=== PATIENT | female | born 1985 | race Caucasian/White ===

== ENCOUNTER 2017-02-11 20:46 | Inpatient (IN) | payer OTHER ==
[~2017-02-11] VITALS: Ht 152.4 cm; Wt 74.1 kg
[~2017-02-11 20:46] MED LIST: LEVO50TA PO; PRENTAB26 PO
[2017-02-11] MEDS ORDERED: LEVO75TA5 PO (22:30)
[2017-02-11 22:34] VITALS: Ht 152.4 cm; Wt 74.1 kg
[2017-02-11] MEDS ORDERED: LACTATED RINGER'S 1000ML 1,000 ML IV SCH (23:33)
[2017-02-11] MEDS ORDERED: LACTATED RINGER'S 1000ML 1,000 ML IV PRN (23:33)
[2017-02-11] MEDS ORDERED: EpHEDrine SULFATE INJ 50 MG/ML AMP ONE (23:38)
[2017-02-11] MEDS ORDERED: BUPIVACAINE 0.25% 30 ML VIAL ONE (23:38)
[2017-02-11] MEDS ORDERED: FENTANYL 2MCG/ML ROPIV 1.25MG/ML 100ML BAG EPI ONE (23:38)
[2017-02-11] MEDS ORDERED: FENTANYL CITRATE INJ 50 MCG/1 ML 2 ML VIAL ONE (23:39)
[2017-02-11 23:59] LABS: HEMATOCRIT 35.2 % (37-47); MEAN CELL VOLUME 82.6 fL (80-100); MEAN CORPUSCULAR HEMOGLOBIN 27.2 pg (25-34); MEAN PLATELET VOLUME 11.1 fL (7.4-10.4); PLATELET COUNT 187 K/uL (130-400); RED BLOOD COUNT 4.26 M/uL (4.2-5.4); WHITE BLOOD COUNT 13.55 K/uL (4.8-10.8)
[2017-02-12] MEDS ORDERED: OXYTOCIN 30 UNITS/500ML NSS IV ONE (00:19)
[2017-02-12] MEDS ORDERED: MEPERIDINE HCL 50 MG/ML CARP ONE (00:24)
[2017-02-12] MEDS ORDERED: LACTATED RINGER'S 1000ML 1,000 ML IV SCH (00:35)
[2017-02-12] MEDS ORDERED: SUPERCREAM 0.870 % 15GM JAR EXT PRN (00:45)
[2017-02-12] MEDS ORDERED: ACETAMINOPHEN 325 MG TAB PO PRN (00:45)
[2017-02-12] MEDS ORDERED: BENZOCAINE 20% AER SPR 82.5 GM CAN EXT PRN (00:45)
[2017-02-12] MEDS ORDERED: OXYTOCIN 30 UNITS/500ML NSS IV PRN (00:45)
[2017-02-12] MEDS ORDERED: HYDROCORTISONE ACETATE 25 MG SUPP PR PRN (00:45)
[2017-02-12] MEDS ORDERED: LANOLIN OINT EXT PRN ×2 (00:45)
--- NOTE | 2017-02-12 01:07 | DELIVERY SUMMARY ---
DATE OF OPERATION: 02/12/2017 TIME OF DELIVERY: 00:12 a.m. TIME OF DELIVERY OF PLACENTA: 00:21 a.m. DETAILS OF DELIVERY: The patient was found to be fully dilated and desired to push. She pushed only once and delivered the head without difficulty. Shoulders were delivered with minimal traction. Baby was handed off to the mother where mouth and nose were suctioned and cord was clamped x2 and cut, it was a 3-vessel cord. Cord blood was obtained. Vagina and perineum were checked for lacerations. There was a second degree perineal laceration at the posterior fourchette. It was confirmed with a rectal exam. Good sphincter tone was noted. Gloves were changed. This area was infiltrated with 1% lidocaine for local anesthesia. It was repaired with 2-0 Vicryl in a running locked fashion, skin in a subcuticular fashion. Excellent hemostasis was achieved. Then, placenta was found to be in the vagina, delivered spontaneously intact and complete. The uterus was empty. Lower segment was cleared off all clots and debris. Fundus was firm. EBL was 200. Rectal exam was repeated. Good sphincter tone was noted. No sutures were felt. Baby was a viable female , Apgars 8/8, weight is 3180 gr. No complications happened and I was present during whole procedure. At the end of the procedure, sponge, needle and instrument counts were correct x2. I attest to the content of the Intraoperative Record and any orders documented therein. Any exceptions are noted below. MTDD
[2017-02-12] MEDS: IBUPROFEN 600 MG TAB PO PRN ×5 (01:47→23:53)
[2017-02-12 03:30] VITALS: BP 143/81; PULSE 84; TEMP 36.6
[2017-02-12] MEDS: PRENATAL VITAMIN TAB PO SCH (07:08)
[2017-02-12] MEDS: FERROUS SULFATE 325 MG TAB PO SCH (07:08)
[2017-02-12] MEDS: DOCUSATE SODIUM 100 MG CAP PO SCH ×2 (07:08→19:51)
[2017-02-12 07:30] VITALS: BP 123/85; PULSE 89; TEMP 36.4; O2SAT 98
--- NOTE | 2017-02-12 09:59 | OB/GYN Progress Note ---
[facility] Progress Note Date of Service: Feb 12, 2017. Patient is seen and examined. She feels well, no complaints. Ambulating without dizziness Voiding without difficulty Tolerating regular diet with out N&V Bleeding is minimal No fever/ chills/ CP/ SOB/ N&V/ Leg pain Breast feeding without problems Date Time Temp Pulse Resp B/P (MAP) Pulse Ox O2 Delivery O2 Flow Rate FiO2 02/12/17 07:30 36.4 89 18 123/85 (98) 98 Room Air 02/12/17 07:30 Room Air 02/12/17 03:30 Room Air 02/12/17 03:30 36.6 84 18 143/81 (101) Room Air PE: General: Alert, orientedx3, NAD Abd: soft, NT, fundus firm, below Umbilicus Perineum intact, Lochia rubra minimal Ext; NT, no edema AP: 31 yo s/p , ppd# 0 VSS Afebrile doing well Continue routine care All questions were answered D/C home tomorrow
[2017-02-12 10:13] LABS: HEMATOCRIT 32.6 % (37-47)
[2017-02-12 12:30] VITALS: BP 128/85; PULSE 92; TEMP 36.8; O2SAT 97
[2017-02-12 15:30] VITALS: BP 129/85; PULSE 94; TEMP 36.5; O2SAT 98
[2017-02-12 19:50] VITALS: BP 131/83; PULSE 80; TEMP 36.5
[2017-02-12] MEDS ORDERED: BISACODYL 5 MG TABEC PO SCH (20:00)
[2017-02-12 23:45] VITALS: BP 118/81; PULSE 82; TEMP 36.5
[2017-02-13] MEDS: IBUPROFEN 600 MG TAB PO PRN ×2 (04:18→08:07)
[2017-02-13 06:42] LABS: HEMATOCRIT 31.7 % (37-47); MEAN CELL VOLUME 83.2 fL (80-100); MEAN CORPUSCULAR HEMOGLOBIN 26.5 pg (25-34); MEAN CORPUSCULAR HGB CONC 31.9 g/dl (32-36); MEAN PLATELET VOLUME 10.7 fL (7.4-10.4); PLATELET COUNT 144 K/uL (130-400); RED BLOOD COUNT 3.81 M/uL (4.2-5.4); WHITE BLOOD COUNT 9.34 K/uL (4.8-10.8)
[2017-02-13] MEDS ORDERED: BISACODYL 10 MG SUPP PR PRN (07:00)
[2017-02-13 08:06] VITALS: BP 117/83; PULSE 91; TEMP 36.7
[2017-02-13] MEDS: FERROUS SULFATE 325 MG TAB PO SCH (08:07)
[2017-02-13] MEDS: DOCUSATE SODIUM 100 MG CAP PO SCH (08:07)
[2017-02-13] MEDS: PRENATAL VITAMIN TAB PO SCH (08:07)
[2017-02-13] MEDS ORDERED: MEASLES, MUMPS & RUBELLA VIRUS VIAL SQ. ONE (09:00)
[2017-02-13] MEDS ORDERED: DIPHTHERIA/TETANUS/PERTUSSIS 0.5 ML SYR/VIAL IM. ONE (09:00)
[2017-02-13] MEDS ORDERED: MTR600X PO (10:16)
[2017-02-13] MEDS ORDERED: CLC100 PO (10:16)
[2017-02-13] MEDS ORDERED: FRRS300 PO (10:16)
--- NOTE | 2017-02-13 10:18 | Discharge Instructions ---
Discharge Instructions Date of Service Feb 13, 2017. Admission Reason for Admission: Uterine Contractions At Greater Than 20 Wks Discharge Discharge Diagnosis / Problem: poastpartum Discharge Goals Goal(s): Routine recovery after delivery Activity Recommendations Activity Limitations: as noted below ACTIVITY RECOMMENDATIONS: * Gradual return to full activity over the next 2-3 weeks. * No lifting - nothing heavier than baby over the next 2-3 weeks. * Do not engage in vigorous exercise, sexual activity or sports until cleared by your physician. * Do not drive or operate any motorized equipment until cleared by your physician. * You may shower/bathe daily. BREAST CARE: If you are not breast feeding: * Wear a supportive bra 24 hours a day for one to two weeks. * Avoid stimulating your breasts and nipples as much as possible during the first few weeks after delivery. * When taking a shower, have the warm water hit your back, not breasts. * When your breasts feel full, apply ice packs. Usually three to four times a day helps ease the discomfort. * Take a mild pain medication (Tylenol/Motrin) when you are uncomfortable. If breast feeding: * Use breast milk to lubricate nipples. Lansinoh cream may be used for sore nipples. You do not need to remove cream prior to breast feeding. If using a different brand of cream, check the label for directions regarding removal of cream prior to nursing. * Wear a supportive bra. * If having problems with breasts or breast feeding, call a medical record consultant or your health care provider. EPISIOTOMY CARE: After delivery, if you have an episiotomy (stitches), the following steps will ease discomfort and aid healing. * For the first 24 hours after delivery, place ice packs next to your episiotomy to help reduce swelling. * After the first 24 hour-period, sitz baths, either portable or in the tub, are suggested. A shower with a shower arm sprayed over the episiotomy may be comforting. * Malou care should be done after each voiding and bowel movement. Squirt warm water from a plastic bottle over the perineum (region of the body between the anus and urinary opening) and pat dry. * Use Dermoplast to ease discomfort. Shake container. [place] directly over the episiotomy. * Place a Tucks on a clean sanitary pad next to your episiotomy. OVER THE COUNTER MEDICATION: * For discomfort or pain, you may use Acetaminophen (Tylenol), Ibuprofen (Advil ), or Naproxen (Aleve) following the package directions. * For constipation you may use Colace following the package directions. SPECIAL CARE INSTRUCTIONS: When you are discharged from the hospital, it is important for you to follow the instructions listed below: * During the first week at home, you should be able to care for yourself and your baby. In addition, the usual light household activities are encouraged. * Limit your activities to the way you feel. Do not try to clean the house or move furniture. Be sensible. * If you actively engage in sports and have done so up until the time of your delivery, you may resume these activities as soon as you feel able. This may take up to one month or even longer. Use good judgment. * Continue to take your vitamins for at least six weeks after the of your baby. * Your diet need not be limited unless you were on a special diet before your delivery. Breast-feeding mothers need around 2500 calories per day and at least 64-80 ounces of fluid per day (8 to 10 glasses). * You should eat foods from the four major food groups. Crash diets or fad diets are to be avoided. Eating lean meats, fresh fruits and vegetables, low-fat dairy products, high fiber foods and a regular exercise program, will help you get back to your pre- weight without putting your health at risk. * Constipation is sometimes a problem after delivery. Take a mild laxative as needed. If breast feeding, Milk of Magnesia is acceptable to use. You may use a suppository or Fleets enema if no episiotomy. * A daily shower or tub bath is suggested. Be sure to thoroughly and gently dry the perineum. * A bloody vaginal discharge will usually continue until around four weeks post . A small amount of bleeding may continue for as long as six weeks. Vaginal discharge changes from the bright red bleeding after delivery to pink then brownish and finally yellowish-pink before becoming white and disappearing. * Bleeding may increase with activity. Your first period may come in 4-8 weeks. If you are breast feeding, your period may be delayed even longer. * [place] (sex) can begin whenever both you and your partner feel comfortable and do not have any form of genital infection. It is recommended that you wait until after your return appointment and discuss with your physician. If you have questions, please talk to your health care practitioner. A condom should be used to prevent infection and . * Foreplay, gentle intercourse and lubrication is very important the first several times to prevent pain. A water-based lubricant such as K-Y jelly or Astroglide may be used. * Tampons may be used six weeks after delivery. * Douching should be avoided for 6 weeks after delivery. * If you have RH negative blood and your baby is RH positive, you will receive RHOGAM by injection prior to discharge. The nurse will give you a card to keep with you that has the date and place that you received RHOGAM after delivery. * During your care, you had a Rubella screen done to check for the presence of rubella antibodies in your blood. If your test was negative, you will receive a Rubella vaccine prior to discharge. This vaccine may cause a fever, soreness at the injection site and flu-like symptoms. If these symptoms persist, notify your health care practitioner. is not advised for three months after a Rubella vaccine. There is a higher chance of having a baby with defects if conceived within three months of getting the vaccine. * If you were discharged 24 hours from delivery or before 48 hours: Visiting nurses will come to your home 48 hours after discharge to assess you and your baby. The visiting nurse will meet with you while you are in the hospital to arrange a time and get directions to your home. * Verbalizes understanding of car seat law as reviewed with patient nursing. * Car Seat hand-out given and reviewed with patient by nursing. * Shaken baby information reviewed with patient by nursing. Call you doctor if: * Heavy bleeding (saturating several pads an hour) or passing clots the size of your fist. * A fever >101 degrees F (38.3 degrees C) on two occasions four hours apart and/or chills. * Unusual pain in the pelvic or vaginal areas. * "Baby Blues" lasting longer than two weeks. If you have any questions or concerns, call your health care practitioner at . FOLLOW-UP VISIT: * Please call the office at to schedule a 6 week examination. It is important you keep this appointment. * It is important for you to make arrangements for either yearly or twice yearly check-ups thereafter. . Current Hospital Diet Patient's current hospital diet: Regular OB Diet Discharge Diet Recommended Diet: Regular Diet Pending Studies Studies pending at discharge: no Medical Emergencies . Who to Call and When: Medical Emergencies: If at any time you feel your situation is an emergency, please call 911 immediately. . Non-Emergent Contact Non-Emergency issues call your: Specialist . . "Provider Documentation" section prepared by Eddie Johnson. . VTE Core Measure Inpt VTE Proph given/why not?: Treatment not indicated
[2017-02-13 10:40] VITALS: BP_DIAS 83; PULSE 91; TEMP 36.7
== END 2017-02-13 10:50 | disposition home or self-care (01) | DRG 775 ==
LOC: C.OPB 20:46 → C.LD 20:47 → C.OPB 23:35 → C.LD 23:36 → C.OBG 02-12 03:18
PROVIDERS: ADMIT Obstetrics & Gynecology; ATTEND Obstetrics & Gynecology
PROC: 10E0XZZ Delivery of Products of Conception, External Approach (ICD-10-PCS; principal; 2017-02-12)
PROC: 0KQM0ZZ Repair Perineum Muscle, Open Approach (ICD-10-PCS; principal; 2017-02-12)
DX: O99.284 Endocrine, nutritional and metabolic diseases complicating childbirth (principal); O70.1 Second degree perineal laceration during delivery; E03.9 Hypothyroidism, unspecified; Z3A.40 40 weeks gestation of pregnancy; Z37.0 Single live birth

== ENCOUNTER 2019-09-07 18:34 | Inpatient (IN) ==
[2019-09-07] MEDS ORDERED: LACTATED RINGER'S 1,000 ML IV PRN (19:01)
[2019-09-07] MEDS ORDERED: OXYTOCIN 30 UNITS/500 ML BAG IV PRN ×2 (19:01→21:05)
[2019-09-07] MEDS ORDERED: fentaNYL citrate 100 MCG/2 ML VIAL ONE (19:13)
[2019-09-07] MEDS ORDERED: BUPIVACAINE 0.25% 30 ML VIAL ONE (19:13)
[2019-09-07] MEDS ORDERED: ePHEDrine sulfate 50 MG/ML AMP ONE (19:13)
[2019-09-07] MEDS ORDERED: fentaNYL 2MCG/ML ROPIV 1.25MG/ML 100 ML BAG EPI ONE (19:14)
[2019-09-07 19:22] LABS: Hematocrit (blood only) 36.7 % (37-47); Hemoglobin 11.7 g/dL (12.0-16.0); Mean Corpuscular Hemoglobin 27.4 pg (25-34); Mean Corpuscular Volume 85.9 fL (80-100); Mean Platelet Volume 11.1 fL (7.4-10.4); Platelet Count 175 K/uL (130-400); RDW Coefficient of Variation 15.6 % (11.5-14.5); RDW Standard Deviation 48.1 fL (36.4-46.3); Red Blood Count 4.27 M/uL (4.2-5.4); White Blood Count 9.94 K/uL (4.8-10.8)
[2019-09-07 19:52] LABS: Mean Corpuscular Hgb Conc 31.9 g/dL (32-36)
--- NOTE | 2019-09-07 20:12 | Anesthesiology Consultation ---
Date of Service September 07, 2019 Assessment & Plan Chart Review Chart Review: Acceptable Risk for Labor Epidural Consults Requested none History Height/Weight Height: 5 ft Weight: 75.75 kg Allergies Allergy/AdvReac Type Severity Reaction Status Date / Time cefaclor Allergy Mild rash Verified 09/07/19 19:35 Medications Home Medications Medication Instructions Recorded Confirmed Last Taken Multivit/Min/Iron/Fol Ac/Pren 1 tab PO DAILY #0 tab 04/13/15 09/07/19 09/07/19 12:00 ( Vitamin) LEVOTHYROXINE SODIUM 1 tab PO DAILY 30 Days #30 tab 02/11/17 09/07/19 09/07/19 07:00 Active Medications Generic Name Dose Route Start Last Admin Trade Name Freq PRN Reason Stop Dose Admin Lactated Ringer's 1,000 mls @ 125 mls/hr 09/07/19 19:01 09/07/19 19:55 Lr IV 09/09/19 19:00 125 mls/hr .Q8H PRN Infusion L&D Protocol Protocol Past Medical History Medical History Marilyn's disease Spontaneous vaginal delivery - 2016,2017 Social History Smoking Status: Never smoker Hx Alcohol Use: No Hx Substance Use: No Physical Exam Vital Signs Last Vital Signs Temp 36.7 C 09/07/19 18:52 Pulse 86 09/07/19 20:10 Resp 20 09/07/19 20:00 BP 138/76 09/07/19 20:10 Pulse Ox 97 09/07/19 20:08 Testing Laboratory Results 09/07/19 19:13
[2019-09-07] MEDS ORDERED: NALOXONE HCL 0.4 MG/1 ML VIAL/CARP IV PRN (20:13)
[2019-09-07] MEDS ORDERED: DiphenhydrAMINE HCL 50 MG/ML VIAL IV PRN (20:13)
[2019-09-07] MEDS ORDERED: NALOXONE HCL 1 MG in SODIUM CHLORIDE 0.9% 1000ML 1,000 ML IV PRN (20:13)
[2019-09-07] MEDS ORDERED: ePHEDrine sulfate 50 MG/ML AMP IV PRN (20:13)
[2019-09-07] MEDS ORDERED: fentaNYL 2MCG/ML ROPIV 1.25MG/ML 100 ML BAG EPI PRN (20:13)
[2019-09-07] MEDS ORDERED: miSOPROStoL 200 MCG TAB ONE (20:52)
[2019-09-07] MEDS ORDERED: miSOPROStoL 200 MCG TAB PR ONE (21:05)
[2019-09-07] MEDS ORDERED: DIPHTHERIA/TETANUS/PERTUSSIS 0.5 ML SYR/VIAL IM ONE (21:05)
[2019-09-07] MEDS ORDERED: SUPERCREAM 0.870% 15 GM JAR EXT PRN (21:05)
[2019-09-07] MEDS ORDERED: bisacodyL 10 MG SUPP PR PRN (21:05)
[2019-09-07] MEDS ORDERED: HYDROCORTISONE ACETATE 25 MG SUPP PR PRN (21:05)
[2019-09-07] MEDS ORDERED: ACETAMINOPHEN 325 MG TAB PO PRN (21:05)
[2019-09-07] MEDS ORDERED: METHYLERGONOVINE MALEATE 0.2 MG/ML AMP IM ONE (21:05)
[2019-09-07] MEDS ORDERED: BENZOCAINE 20% AER SPR 82.5 GM CAN EXT PRN (21:05)
--- NOTE | 2019-09-07 22:24 | Anesthesia Procedure Note ---
Date of Service September 07, 2019 Anesthesia Post Epidural Note Vital Signs Vital Signs: Temp Pulse Resp BP Pulse Ox 36.7 C 76 18 121/84 98 09/07/19 21:10 09/07/19 22:11 09/07/19 22:10 09/07/19 22:11 09/07/19 20:58 Pain Intensity Bilateral Abdomen: Pain Intensity: 0 Notes Mental Status: alert / awake / arousable Nausea / Vomiting: adequately controlled Pain: adequately controlled Airway Patency, RR, SpO2: stable & adequate BP & HR: stable & adequate Hydration State: stable & adequate Neuraxial Anesthesia: was administered and sensory block is resolving Anesthetic Complications: no major complications apparent and Pt Satisfied with anesthetic care Epidural: Removed without complications and With tip intact
[2019-09-07] MEDS: IBUPROFEN 600 MG TAB PO PRN (22:41)
--- NOTE | 2019-09-07 23:04 | Delivery Summary ---
DATE OF OPERATION: 09/07/2019 The patient delivered a live infant male in left occiput anterior presentation. There was loose nuchal cord which was easily reduced. Infant was delivered. Delayed cord clamp was performed after 1 minute. Cord blood was obtained. Placenta spontaneously delivered. Inspection of the placenta shows normal grossly looking placenta with 3-vessel cord. 's weight and is in the pediatric note. Inspection of the perineum showed a first-degree laceration which was repaired with Vicryl stitch. There was good hemostasis post repair. Estimated blood loss is 450 mL. Rectal exam post repair showed good sphincter tone, no sutures are palpated in the rectum. Baby and mother are doing well in recovery. All instruments were removed from the vagina and accounted for x2 including retractors, needles and sponges. I attest to the content of the Intraoperative Record and any orders documented therein. Any exceptions are noted below. MTDD
[2019-09-08] MEDS: IBUPROFEN 600 MG TAB PO PRN ×5 (03:27→21:13)
[2019-09-08 06:35] LABS: Hematocrit (blood only) 38.2 % (37-47); Hemoglobin 12.6 g/dL (12.0-16.0); Mean Corpuscular Hemoglobin 27.6 pg (25-34); Mean Corpuscular Volume 83.8 fL (80-100); Mean Platelet Volume 10.7 fL (7.4-10.4); Platelet Count 143 K/uL (130-400); RDW Coefficient of Variation 15.7 % (11.5-14.5); RDW Standard Deviation 47.7 fL (36.4-46.3); Red Blood Count 4.56 M/uL (4.2-5.4); White Blood Count 12.09 K/uL (4.8-10.8)
[2019-09-08] MEDS: LEVOTHYROXINE SODIUM 50 MCG TABLET PO SCH (06:46)
[2019-09-08] MEDS: DOCUSATE SODIUM 100 MG CAP PO SCH ×2 (07:44→20:44)
[2019-09-08] MEDS: PRENATAL VITAMIN 1 TAB PO SCH (07:44)
--- NOTE | 2019-09-08 08:33 | Obstetrical Progress Note ---
Date of Service September 08, 2019 Assessment & Plan (1) Normal course: PPD #1 Pt doing well Anticipate disch this PM Subjective Ambulation: ambulating normally Voiding: no voiding problems Passing Gas:: Yes Diet Tolerance:: regular diet Lochia:: Small Feeding Type:: breast feeding Review of Systems All systems reviewed & are unremarkable except as noted in HPI & below Physical Exam Constitutional WD/WN, vitals as above well developed and well nourished Eyes PERRL, conjunctivae normal, anicteric sclerae Neck trachea midline, no thyromegaly Respiratory normal respiratory effort, lungs clear to auscultation Auscultation: no crackles, no rales and no wheezes Cardiovascular RRR, no murmur, no edema Gastrointestinal (Abdomen) normal bowel sounds, soft, nontender, no hepatosplenomegaly Uterus is below umbilicus Musculoskeletal no cyanosis or clubbing, extremities motor strength 5/5 Skin no rashes, warm and dry Neurologic patellar DTR's 2+ bilat, sensation intact Psychiatric A+Ox3, euthymic affect Genitourinary normal external appearance Results & Data Vital Signs (Past 12 Hours) Vital Signs Temp Pulse Pulse Resp BP BP Pulse Ox 09/08/19 06:32 54 L 120/77 09/08/19 03:30 85 18 145/92 H 09/07/19 23:30 36.9 C 81 18 140/85 09/07/19 23:10 36.9 C 86 20 140/71 09/07/19 22:56 80 146/70 H 09/07/19 22:40 79 18 120/78 09/07/19 22:26 75 126/76 09/07/19 22:11 76 121/84 09/07/19 22:10 78 18 142/89 H 09/07/19 22:07 78 142/89 H 09/07/19 21:55 89 20 133/75 09/07/19 21:40 89 20 133/75 09/07/19 21:25 94 H 20 119/67 09/07/19 21:10 36.7 C 88 20 114/66 09/07/19 20:58 100 H 98 09/07/19 20:53 97 H 97 09/07/19 20:48 93 H 97 09/07/19 20:47 160 H 124/60 09/07/19 20:46 108 H 91 09/07/19 20:43 138 H 98 09/07/19 20:39 100 H 88 L 09/07/19 20:38 110 H 99 09/07/19 20:33 98 H 99
[2019-09-08] MEDS ORDERED: bisacodyL 5 MG TABEC PO SCH (20:00)
[2019-09-09] MEDS: IBUPROFEN 600 MG TAB PO PRN ×2 (03:45→08:04)
[2019-09-09] MEDS: LEVOTHYROXINE SODIUM 50 MCG TABLET PO SCH (06:29)
[2019-09-09 06:33] LABS: Hematocrit (blood only) 34.8 % (37-47); Hemoglobin 11.2 g/dL (12.0-16.0)
[2019-09-09] MEDS: DOCUSATE SODIUM 100 MG CAP PO SCH (08:04)
[2019-09-09] MEDS: PRENATAL VITAMIN 1 TAB PO SCH (08:04)
--- NOTE | 2019-09-09 08:13 | Obstetrical Progress Note ---
Date of Service September 09, 2019 Assessment & Plan Admission and Anticipated Discharge Date Admission Date: September 07, 2019 Subjective Patient is seen and examined. She feels well, no complaints. likes to be discharged today Ambulating without dizziness Voiding without difficulty Tolerating regular diet with out N&V Bleeding is minimal No fever/ chills/ CP/ SOB/ N&V/ Leg pain Breast feeding without problems Vital Signs Temp Pulse Resp BP Pulse Ox 09/08/19 23:15 36.7 C 73 20 118/76 09/08/19 19:20 36.7 C 83 18 124/79 09/08/19 16:57 36.6 C 71 16 123/81 97 09/08/19 12:59 36.4 C L 69 18 131/80 96 09/08/19 08:40 36.8 C 57 L 18 132/83 97 Lab Results 09/07/19 09/08/19 09/09/19 Range/Units 19:13 06:20 06:21 WBC 9.94 12.09 H (4.8-10.8) K/uL RBC 4.27 4.56 (4.2-5.4) M/uL Hgb 11.7 L 12.6 11.2 L (12.0-16.0) g/dL Hct 36.7 L 38.2 34.8 L (37-47) % MCV 85.9 83.8 (80-100) fL MCH 27.4 27.6 (25-34) pg MCHC 31.9 L 33.0 (32-36) g/dL RDW Std Deviation 48.1 H 47.7 H (36.4-46.3) fL RDW Coeff of Seymour 15.6 H 15.7 H (11.5-14.5) % Plt Count 175 143 (130-400) K/uL MPV 11.1 H 10.7 H (7.4-10.4) fL PE: General: Alert, orientedx3, NAD Abd: soft, NT, fundus firm, below Umbilicus Perineum intact, Lochia rubra minimal Ext; NT, no edema AP: 33 yo s/p , ppd# 2 VSS Afebrile doing well Continue routine care All questions were answered D/C home , f/u in office Results & Data ([place]) Vital Signs (Past 12 Hours) Vital Signs Temp Pulse Resp BP 09/08/19 23:15 36.7 C 73 20 118/76
== END 2019-09-09 12:45 | disposition home or self-care (01) | DRG 807 ==
LOC: OPB 18:34 → 4S1 18:36 → 4S2 23:33

== ENCOUNTER 2023-01-13 09:32 | Inpatient (IN) ==
[2023-01-13] MEDS ORDERED: OXYTOCIN 30 UNITS/NSS 30 UNITS/500 ML BAG IV PRN ×3 (09:48→21:06)
[2023-01-13] MEDS ORDERED: LIDOCAINE 1% LOCAL 20 ML VIAL INFIL PRN (09:48)
[2023-01-13] MEDS ORDERED: NIFEdipine EXTENDED REL 30 MG TABCR PO STA (10:25)
--- NOTE | 2023-01-13 10:25 | History & Physical Report ---
Date of Service January 13, 2023 Assessment & Plan (1) 37 weeks gestation of : Plan: Admit, routine labs PIH labs Cytotec 25 mcg SL q4 hrs Epidural if patient requests prior to AROM Pit augmentation Anticipate (2) AMA (advanced maternal age) multigravida 35+: (3) Pre-eclampsia during in third trimester, antepartum: Plan: PIH labs Will treat severe range pressures and Mag if needed Plan nifedipine 30mg ER daily (4) Hypothyroidism affecting : Plan: continue levo 100mcg daily [facility]SH [facility] free T4 Admission and Anticipated Discharge Date Admission Date: January 13, 2023 History of Present Illness Chief Complaint: IOL Primary Care Provider: Chelo Louie DO Patient is a 37 year old at 37 0/7 who presents for IOL for preeclampsia without severe features at term. Dx at 36 weeks. Controlled on labetalol 200 mg TID (but was only taking 100mg BID for several days first). Denies contractions, LOF, vaginal bleeding. +FM. Denies headaches, blurry vision, RUQ or epigastric pain. Hypothyroidism 100mg PO daily. Last TSH Nov. Last EFW Tues 7% 2600g, 25%tile GBS negative AMA Desires sterility, would like tubal if emergency C section. Allergies Allergy/AdvReac Type Severity Reaction Status Date / Time cefaclor Allergy Mild rash Verified 09/07/19 19:35 Home Medications Medication Instructions Recorded Confirmed Type Multivit/Min/Iron/Fol Ac/Pren 1 tab PO DAILY #0 tabs 04/13/15 01/13/23 History ( Vitamin) LEVOTHYROXINE SODIUM 1 tab PO DAILY 30 days #30 tabs 02/11/17 01/13/23 History labetalol 200 mg tablet 200 mg PO TID 01/13/23 01/13/23 History Patient History Medical History Normal course Marilyn's disease Spontaneous vaginal delivery - 2015,2016 Premature rupture of membranes Amniotic fluid leaking Surgical History No history of previous surgery Social History Smoking Status: Never smoker Hx Alcohol Use: No Hx Substance Use: No Preferred Language: Yoruba Communication Ability: Effective Bee Farmer Required: No Beliefs That Will Affect Care: None marital status: marital status details: Carlitos Prakash Current Living Situation: Spouse and Family Other Information That Helps Us Care for You: No other: Homemaker Feels Safe at Home: Yes Safety Concerns: Feels Safe At This Time Diet: regular Assistive Devices: None OB History SVDx3 PRACTICE NURSE History See record Review of Systems All systems reviewed & are unremarkable except as noted in HPI & below Physical Exam Constitutional: WD/WN, vitals as above Respiratory: normal respiratory effort, lungs clear to auscultation Cardiovascular: RRR, no murmur, no edema Gastrointestinal (Abdomen): normal bowel sounds, soft, nontender, no hepatosplenomegaly gravid Genitourinary: Cx: 50/-3, membranes swept Results & Data Vital Signs (Past 12 Hours) Vital Signs Temp Pulse Resp BP 01/13/23 10:05 63 160/92 H 01/13/23 10:00 36.6 C 20 01/13/23 09:57 68 148/99 H Laboratory Results Labs pending Monitoring External Monitor FHT:baseline 130, mod varibility, +accels, no decels, cat I tracing Tocodynamometer Irritable (2) AMA (advanced maternal age) multigravida 35+ Trimester: third trimester Qualified Code(s): O09.523 - Supervision of elderly multigravida, third trimester
[2023-01-13 10:31] LABS: Hematocrit (blood only) 36.8 % (37.0-47.0); Hemoglobin 12.1 g/dl (12.0-16.0); Mean Corpuscular Hgb Conc 32.9 g/dL (32.0-36.0); Mean Corpuscular Volume 88.2 fL (80.0-100.0); Mean Platelet Volume 11.9 fL (9.4-12.4); Platelet Count 173 K/uL (130-400); RDW Coefficient of Variation 14.6 % (11.5-14.5); RDW Standard Deviation 46.5 fL (36.4-46.3); Red Blood Count 4.17 M/uL (4.20-5.40); White Blood Count 6.83 K/ul (4.8-10.8)
[2023-01-13 10:44] LABS: Albumin Globulin Ratio 1.1 (0.9-2); Albumin Level 3.2 gm/dl (3.4-5.0); BUN Creatinine Ratio 14.5 (10-20); Bilirubin,Total 0.3 mg/dl (0.2-1.0); Calcium 8.5 mg/dl (8.6-10.3); Creatinine Clr Calc Pharmacy 118.1 ml/min; Est GFR (African American) 135.4 ml/min; Est GFR (Non-African American) 116.8 ml/min; Potassium 4.2 mmol/L (3.5-5.1); Total Protein 6.2 gm/dl (6.0-8.3); Uric Acid 6.5 mg/dl (2.6-7.2)
[2023-01-13 10:49] LABS: Total Protein Urine Random 33.4 mg/dl (0-11.9)
[2023-01-13 10:54] LABS: Creatinine Urine Random 41.2 mg/dl; Protein Creatinine Ratio Urine 0.8 (0-0.2)
[2023-01-13 10:56] LABS: Thyroid Stimulating Hormone 4.273 uIu/ml (0.300-4.500)
[2023-01-13] MEDS ORDERED: LABETALOL HCL IV 5 MG/ML 20ML IV STA (11:03)
[2023-01-13] MEDS ORDERED: MAG SULFATE 4GM BOLUS FROM BAG IV ONE (11:09)
[2023-01-13] MEDS: MAGNESIUM SULFATE / WTR 40 GM/1,000 ML BAG IV SCH (11:26)
[2023-01-13] MEDS: LACTATED RINGER'S 1,000 ML IV PRN ×3 (11:29→20:19)
[2023-01-13] MEDS: miSOPROStoL 25 MCG TAB SL SCH ×5 (11:58→19:15)
[2023-01-13] MEDS ORDERED: LIDOCAINE 2%/EPINEPHRINE 1:200,000 20 ML PF ONE (14:54)
[2023-01-13] MEDS ORDERED: ePHEDrine sulfate 50 MG/ML AMP ONE (14:54)
[2023-01-13] MEDS ORDERED: SODIUM CHLORIDE 0.9% PF INJ 10 ML VIAL ONE (14:54)
[2023-01-13] MEDS ORDERED: BUPIVACAINE 0.25% PF 30 ML VIAL ONE (14:54)
[2023-01-13] MEDS ORDERED: fentaNYL citrate PF 100 MCG/2 ML VIAL ONE (14:54)
[2023-01-13] MEDS ORDERED: fentANYL 2 MCG/ML BUPIVacaine 0.125%-NSS 100ML BAG ONE (14:54)
--- NOTE | 2023-01-13 15:59 | Anesthesiology Consultation ---
Date of Service January 13, 2023 Assessment & Plan Chart Review Chart Review: Patient NOT seen in Pre Admission Testing and Acceptable Risk for Labor Epidural Consults Requested none ASA ASA2 Proposed Anesthesia Anesthesia Type: Labor Epidural Risk / Benefits Reviewed With: PT / POA / Parent / Guardian, Accepts Plan and Informed Consent Obtained History Height/Weight Height: 5 ft Weight: 79.379 kg Allergies Allergy/AdvReac Type Severity Reaction Status Date / Time cefaclor Allergy Mild rash Verified 09/07/19 19:35 Medications Home Medications Medication Instructions Recorded Confirmed Last Taken Multivit/Min/Iron/Fol Ac/Pren 1 tab PO DAILY #0 tabs 04/13/15 01/13/23 01/12/23 ( Vitamin) LEVOTHYROXINE SODIUM 1 tab PO DAILY 30 days #30 tabs 02/11/17 01/13/23 01/13/23 labetalol 200 mg tablet 200 mg PO TID 01/13/23 01/13/23 01/12/23 19:00 Active Medications Generic Name Dose Route Start Last Admin Trade Name Freq PRN Reason Stop Dose Admin Lactated Ringer's 1,000 mls @ 125 mls/hr 01/13/23 09:48 01/13/23 15:30 Lr IV 01/15/23 09:47 125 mls/hr .Q8H PRN Administration L&D Protocol Protocol Magnesium Sulfate 40 gm in 1,000 mls @ 50 mls/hr 01/13/23 11:15 01/13/23 11:56 Magnesium Sulfate / Wtr IV 02/12/23 11:14 50 mls/hr .Q20H FLORES Infusion Misoprostol 25 mcg 01/13/23 10:10 01/13/23 12:06 Misoprostol 25 Mcg Tab SL 02/12/23 10:09 Not Given Q4 FLORES NPO Date Last Intake of Fluids: 01/13/23 Time Last Intake of Fluids: 03:00 Date Last Intake of Solids: 01/13/23 Time Last Intake of Solids: 07:30 Past Medical History Medical History Normal course Marilyn's disease Spontaneous vaginal delivery - 2015,2017 Premature rupture of membranes Amniotic fluid leaking Exercise / Class Metabolic Activity 1 > 8 Run/Swim/Ski/Tennis Past Surgical History Surgical History No history of previous surgery Past Anesthesia History No Hx of Anesthesia Complications and No Family Hx of Anesthesia Complications History of PONV No Hx of PONV and No Hx of Motion Sickness Social History Smoking Status: Never smoker Hx Alcohol Use: No Hx Substance Use: No Review of Systems ROS Unobtainable: All systems reviewed & are unremarkable except as noted in HPI & below Physical Exam Vital Signs Last Vital Signs Temp 36.5 C 01/13/23 15:16 Pulse 83 01/13/23 15:55 Resp 18 01/13/23 15:25 BP 147/94 H 01/13/23 15:55 Pulse Ox 96 01/13/23 15:55 Constitutional no acute distress ENMT Mouth: no TMJ abnormality Thyromental Distance: > or= 3.5 Finger Breadths Mallampati Class: III Neck normal visual inspection and trachea midline; neck extension not limited Respiratory normal respiratory effort Auscultation: lungs clear to auscultation bilaterally Cardiovascular Rate/Rhythm: regular rate and regular rhythm Heart Sounds: no murmur Musculoskeletal Spine: normal cervical ROM Extremities: full ROM of extremities Neurologic moves all extremities Psychiatric Orientation: alert and oriented x 3 Testing Laboratory Results 01/13/23 10:06 01/13/23 10:06
--- NOTE | 2023-01-13 16:33 | Obstetrical Progress Note ---
Date of Service January 13, 2023 Assessment & Plan (1) Pre-eclampsia, severe, third trimester: Plan: Continue Mag sulfate until 24 hrs post delivery Adequate output, no s/s of mag tox Misox1 dose Start pit for augmentation Anticipate Admission and Anticipated Discharge Date Admission Date: January 13, 2023 Subjective Patient doing well in bed at this time, more regular contractions. Received an epidural for pain control. Has SCDs and Muro in place. Magnesium running for seizure prophylaxis Physical Exam Constitutional: WD/WN, vitals as above Respiratory: normal respiratory effort, lungs clear to auscultation Cardiovascular: RRR, no murmur, no edema Gastrointestinal (Abdomen): normal bowel sounds, soft, nontender, no hepatosplenomegaly Neurologic: 2+ DTR Genitourinary: heart tracing: Baseline 130, moderate variability, positive accelerations no decelerations, category 1 tracing Tocometer: Contractions every 2 to 4 minutes Cervix: 3/60/-3 anterior and soft, AROM was performed with moderate amount of clear fluid. No cord felt. No complications Results & Data Vital Signs (Past 12 Hours) Vital Signs Temp Pulse Resp BP Pulse Ox 01/13/23 16:29 84 94 01/13/23 16:26 93 H 130/78 01/13/23 16:25 95 H 96 01/13/23 16:24 83 94 01/13/23 16:21 83 125/78 01/13/23 16:20 81 95 01/13/23 16:17 82 130/84 01/13/23 16:15 88 94 01/13/23 16:11 90 130/84 01/13/23 16:10 91 H 96 01/13/23 16:09 84 94 01/13/23 16:05 95 01/13/23 16:05 85 01/13/23 16:05 86 127/82 01/13/23 16:03 80 131/86 01/13/23 16:01 78 133/84 01/13/23 16:00 89 97 01/13/23 15:59 86 145/94 H 01/13/23 15:57 79 141/93 H 01/13/23 15:55 83 147/94 H 96 01/13/23 15:53 82 153/92 H 01/13/23 15:51 79 149/99 H 01/13/23 15:50 84 98 01/13/23 15:49 73 141/91 H 01/13/23 15:47 78 141/97 H 01/13/23 15:45 78 97 01/13/23 15:40 91 H 96 01/13/23 15:35 68 96 01/13/23 15:30 71 97 01/13/23 15:25 18 01/13/23 15:25 69 97 01/13/23 15:20 70 97 01/13/23 15:16 36.5 C 72 20 141/89 H 01/13/23 15:15 69 97 01/13/23 15:10 65 97 01/13/23 15:05 73 97 01/13/23 15:00 69 96 01/13/23 14:55 71 96 01/13/23 14:50 73 97 01/13/23 14:45 65 136/85 96 01/13/23 14:40 65 97 01/13/23 14:35 66 97 01/13/23 14:30 18 01/13/23 14:30 67 97 01/13/23 14:25 74 97 01/13/23 14:20 71 96 01/13/23 14:15 62 137/88 96 01/13/23 14:10 97 01/13/23 14:10 69 01/13/23 14:10 36.5 C 71 20 139/89 01/13/23 14:05 63 96 01/13/23 14:00 62 96 01/13/23 13:55 65 96 01/13/23 13:50 69 96 01/13/23 13:45 70 97 01/13/23 13:40 63 94 01/13/23 13:35 59 L 95 01/13/23 13:30 18 01/13/23 13:30 59 L 96 01/13/23 13:29 63 146/87 H 01/13/23 13:25 60 96 01/13/23 13:20 62 96 01/13/23 13:15 65 96 01/13/23 13:13 60 155/92 H 01/13/23 13:10 70 97 01/13/23 13:05 60 96 01/13/23 13:00 65 97 01/13/23 12:59 59 L 164/93 H 01/13/23 12:55 61 96 01/13/23 12:50 65 97 01/13/23 12:49 65 160/96 H 01/13/23 12:45 62 96 01/13/23 12:43 62 163/96 H 01/13/23 12:40 67 96 01/13/23 12:35 60 96 01/13/23 12:31 65 94 01/13/23 12:30 20 01/13/23 12:30 63 95 01/13/23 12:25 63 96 01/13/23 12:24 63 152/96 H 01/13/23 12:20 65 96 01/13/23 12:19 63 152/95 H 01/13/23 12:15 63 96 01/13/23 12:14 61 155/98 H 01/13/23 12:10 72 96 01/13/23 12:09 69 145/97 H 01/13/23 12:05 79 95 01/13/23 12:04 75 154/99 H 01/13/23 12:00 63 96 01/13/23 11:59 64 152/92 H 01/13/23 11:55 77 97 01/13/23 11:54 63 153/88 H 01/13/23 11:50 70 96 01/13/23 11:49 70 20 149/84 H 01/13/23 11:47 74 156/90 H 01/13/23 11:45 97 01/13/23 11:45 74 01/13/23 11:45 71 20 156/90 H 01/13/23 11:40 75 98 01/13/23 11:35 97 01/13/23 11:35 71 01/13/23 11:35 73 129/68 01/13/23 11:31 69 20 164/82 H 01/13/23 11:30 72 97 01/13/23 11:26 20 01/13/23 11:25 96 01/13/23 11:25 69 01/13/23 11:25 57 L 20 164/97 H 01/13/23 11:24 58 L 93 01/13/23 11:20 61 97 01/13/23 11:19 68 20 176/96 H 01/13/23 11:15 76 97 01/13/23 11:13 70 165/96 H 01/13/23 11:03 63 20 177/99 H 01/13/23 11:01 62 181/100 H 01/13/23 10:32 68 177/106 H 01/13/23 10:05 63 160/92 H 01/13/23 10:00 36.6 C 20 01/13/23 09:57 68 148/99 H Laboratory Results Laboratory Results WBC 6.83 K/ul (4.8-10.8) 01/13/23 10:06 RBC 4.17 M/uL (4.20-5.40) L 01/13/23 10:06 Hgb 12.1 g/dl (12.0-16.0) 01/13/23 10:06 Hct 36.8 % (37.0-47.0) L 01/13/23 10:06 MCV 88.2 fL (80.0-100.0) 01/13/23 10:06 MCH 29.0 pg (25.0-34.0) 01/13/23 10:06 MCHC 32.9 g/dL (32.0-36.0) 01/13/23 10:06 RDW Std Deviation 46.5 fL (36.4-46.3) H 01/13/23 10:06 RDW Coeff of Seymour 14.6 % (11.5-14.5) H 01/13/23 10:06 Plt Count 173 K/uL (130-400) 01/13/23 10:06 MPV 11.9 fL (9.4-12.4) 01/13/23 10:06 Sodium 136 mmol/L (136-145) 01/13/23 10:06 Potassium 4.2 mmol/L (3.5-5.1) 01/13/23 10:06 Chloride 107 mmol/L (98-107) 01/13/23 10:06 Carbon Dioxide 21 mmol/L (21-32) 01/13/23 10:06 Anion Gap 8 (3-11) 01/13/23 10:06 BUN 9 mg/dl (6-23) 01/13/23 10:06 Creatinine 0.62 mg/dl (0.6-1.2) 01/13/23 10:06 Est Cr Clr Drug Dosing 118.1 ml/min 01/13/23 10:06 Est GFR ( Amer) 135.4 ml/min 01/13/23 10:06 Est GFR (Non-Af Amer) 116.8 ml/min 01/13/23 10:06 BUN/Creatinine Ratio 14.5 (10-20) 01/13/23 10:06 Glucose 88 mg/dl (70-99(Fasting)) 01/13/23 10:06 Uric Acid 6.5 mg/dl (2.6-7.2) 01/13/23 10:06 Calcium 8.5 mg/dl (8.6-10.3) L 01/13/23 10:06 Magnesium (Sulf Ther) 3.8 mg/dL (4.0-8.0) L 01/13/23 11:38 Total Bilirubin 0.3 mg/dl (0.2-1.0) 01/13/23 10:06 AST 17 U/L (13-39) 01/13/23 10:06 ALT 11 U/L (7-52) 01/13/23 10:06 Alkaline Phosphatase 121 U/L (34-104) H 01/13/23 10:06 Lactate Dehydrogenase 176 U/L (86-244) 01/13/23 10:06 Total Protein 6.2 gm/dl (6.0-8.3) 01/13/23 10:06 Albumin 3.2 gm/dl (3.4-5.0) L 01/13/23 10:06 Globulin 3.0 gm/dl (2.5-4.0) 01/13/23 10:06 Albumin/Globulin Ratio 1.1 (0.9-2) 01/13/23 10:06 TSH 4.273 uIu/ml (0.300-4.500) 01/13/23 10:06 Ur Random Creatinine 41.2 mg/dl 01/13/23 Unknown U Random Total Protein 33.4 mg/dl (0-11.9) H 01/13/23 Unknown Protein/Creatinin Ratio 0.8 (0-0.2) H 01/13/23 Unknown
[2023-01-13] MEDS ORDERED: NALBUPHINE HCL 5 MG in SYRINGE 0 ML IV PRN (17:16)
[2023-01-13] MEDS ORDERED: BUPIVACAINE 0.25% PF 30 ML VIAL EPI STA (17:16)
[2023-01-13] MEDS ORDERED: NALOXONE HCL 1 MG in SODIUM CHLORIDE 0.9% 1,000 ML IV PRN (17:16)
[2023-01-13] MEDS ORDERED: SODIUM CHLORIDE 0.9% PF INJ 10 ML VIAL EPI STA (17:16)
[2023-01-13] MEDS ORDERED: LIDOCAINE 2%/EPINEPHRINE 1:200,000 20 ML PF EPI STA (17:16)
[2023-01-13] MEDS ORDERED: BUPIVACAINE 0.25% PF 30 ML VIAL EPI PRN (17:16)
[2023-01-13] MEDS ORDERED: ePHEDrine sulfate 50 MG/ML AMP IV PRN (17:16)
[2023-01-13] MEDS ORDERED: NALOXONE HCL 0.4 MG/1 ML VIAL/CARP IV PRN (17:16)
[2023-01-13] MEDS ORDERED: fentANYL 2 MCG/ML BUPIVacaine 0.125%-NSS 100ML BAG EPI PRN (17:16)
[2023-01-13] MEDS ORDERED: fentaNYL citrate PF 100 MCG/2 ML VIAL EPI STA (17:16)
[2023-01-13] MEDS ORDERED: diphenhydrAMINE 50 MG/ML VIAL IV PRN (17:16)
[2023-01-13] MEDS ORDERED: fentaNYL citrate PF 100 MCG/2 ML VIAL EPI PRN (17:16)
[2023-01-13] MEDS ORDERED: ROPIVACAINE 0.5% PF 5 MG/ML 20 ML VIAL EPI PRN (17:16)
[2023-01-13] MEDS ORDERED: LIDOCAINE 2% MPF LOCAL 5 ML VIAL EPI PRN (17:16)
[2023-01-13] MEDS ORDERED: SODIUM CHLORIDE 0.9% PF INJ 10 ML VIAL EPI PRN (17:16)
--- NOTE | 2023-01-13 18:45 | Obstetrical Progress Note ---
Date of Service January 13, 2023 Assessment & Plan (1) Pre-eclampsia, severe, third trimester: Plan: Continue Mag sulfate until 24 hrs post delivery Adequate output, no s/s of mag tox Misox1 dose Continue oxytocin for augmentation Anticipate Admission and Anticipated Discharge Date Admission Date: January 13, 2023 Subjective Comfortable with epidural Physical Exam Genitourinary: heart tracing: Baseline 130, moderate variability, no accelerations, early decelerations Tocometer: Contractions every 2 minutes, oxytocin currently at 2 milliunits/h Cervix: 3/90/-3 Results & Data Vital Signs (Past 12 Hours) Vital Signs Temp Pulse Resp BP Pulse Ox 01/13/23 18:43 65 110/63 01/13/23 18:42 63 94 01/13/23 18:40 69 94 01/13/23 18:36 75 94 01/13/23 18:35 67 95 01/13/23 18:30 94 01/13/23 18:30 72 01/13/23 18:30 69 94 01/13/23 18:27 72 107/67 01/13/23 18:25 20 01/13/23 18:25 72 95 01/13/23 18:20 67 94 01/13/23 18:19 66 94 01/13/23 18:15 66 95 01/13/23 18:13 72 105/67 01/13/23 18:10 94 01/13/23 18:10 79 01/13/23 18:10 70 94 01/13/23 18:05 86 97 01/13/23 18:00 71 96 01/13/23 17:58 72 121/82 01/13/23 17:55 68 96 01/13/23 17:52 70 94 01/13/23 17:50 73 96 01/13/23 17:45 71 96 01/13/23 17:44 72 124/80 01/13/23 17:40 69 95 01/13/23 17:35 71 95 01/13/23 17:30 71 96 01/13/23 17:27 70 125/83 01/13/23 17:25 18 01/13/23 17:25 78 94 01/13/23 17:20 74 95 01/13/23 17:19 79 93 01/13/23 17:15 78 95 01/13/23 17:12 71 20 118/79 11/10/23 17:10 74 96 01/13/23 17:06 73 94 01/13/23 17:05 69 95 01/13/23 17:00 18 01/13/23 17:00 36.6 C 18 01/13/23 17:00 95 01/13/23 17:00 87 01/13/23 17:00 90 94 01/13/23 16:57 80 126/83 01/13/23 16:55 78 97 01/13/23 16:51 70 120/74 01/13/23 16:50 75 94 01/13/23 16:47 94 01/13/23 16:47 74 01/13/23 16:47 76 117/73 01/13/23 16:45 83 94 01/13/23 16:42 76 94 01/13/23 16:41 73 112/72 01/13/23 16:40 82 94 01/13/23 16:36 77 111/73 94 01/13/23 16:35 79 96 01/13/23 16:31 78 146/74 H 01/13/23 16:30 81 95 01/13/23 16:29 84 94 01/13/23 16:26 93 H 130/78 01/13/23 16:25 18 01/13/23 16:25 95 H 96 01/13/23 16:24 83 94 01/13/23 16:21 83 125/78 01/13/23 16:20 81 95 01/13/23 16:17 82 130/84 01/13/23 16:15 88 94 01/13/23 16:11 90 130/84 01/13/23 16:10 91 H 96 01/13/23 16:09 84 94 01/13/23 16:05 95 01/13/23 16:05 85 01/13/23 16:05 86 127/82 01/13/23 16:03 80 131/86 01/13/23 16:01 78 133/84 01/13/23 16:00 89 97 01/13/23 15:59 86 145/94 H 01/13/23 15:57 79 141/93 H 01/13/23 15:55 83 147/94 H 96 01/13/23 15:53 82 153/92 H 01/13/23 15:51 79 149/99 H 01/13/23 15:50 84 98 01/13/23 15:49 73 141/91 H 01/13/23 15:47 78 141/97 H 01/13/23 15:45 78 97 01/13/23 15:40 91 H 96 01/13/23 15:35 68 96 01/13/23 15:30 71 97 01/13/23 15:25 18 01/13/23 15:25 69 97 01/13/23 15:20 70 97 01/13/23 15:16 36.5 C 72 20 141/89 H 01/13/23 15:15 69 97 01/13/23 15:10 65 97 01/13/23 15:05 73 97 01/13/23 15:00 69 96 01/13/23 14:55 71 96 01/13/23 14:50 73 97 01/13/23 14:45 65 136/85 96 01/13/23 14:40 65 97 01/13/23 14:35 66 97 01/13/23 14:30 18 01/13/23 14:30 67 97 01/13/23 14:25 74 97 01/13/23 14:20 71 96 01/13/23 14:15 62 137/88 96 01/13/23 14:10 97 01/13/23 14:10 69 01/13/23 14:10 36.5 C 71 20 139/89 01/13/23 14:05 63 96 01/13/23 14:00 62 96 01/13/23 13:55 65 96 01/13/23 13:50 69 96 01/13/23 13:45 70 97 01/13/23 13:40 63 94 01/13/23 13:35 59 L 95 01/13/23 13:30 18 01/13/23 13:30 59 L 96 01/13/23 13:29 63 146/87 H 01/13/23 13:25 60 96 01/13/23 13:20 62 96 01/13/23 13:15 65 96 01/13/23 13:13 60 155/92 H 01/13/23 13:10 70 97 01/13/23 13:05 60 96 01/13/23 13:00 65 97 01/13/23 12:59 59 L 164/93 H 01/13/23 12:55 61 96 01/13/23 12:50 65 97 01/13/23 12:49 65 160/96 H 01/13/23 12:45 62 96 01/13/23 12:43 62 163/96 H 01/13/23 12:40 67 96 01/13/23 12:35 60 96 01/13/23 12:31 65 94 01/13/23 12:30 20 01/13/23 12:30 63 95 01/13/23 12:25 63 96 01/13/23 12:24 63 152/96 H 01/13/23 12:20 65 96 01/13/23 12:19 63 152/95 H 01/13/23 12:15 63 96 01/13/23 12:14 61 155/98 H 01/13/23 12:10 72 96 01/13/23 12:09 69 145/97 H 01/13/23 12:05 79 95 01/13/23 12:04 75 154/99 H 01/13/23 12:00 63 96 01/13/23 11:59 64 152/92 H 01/13/23 11:55 77 97 01/13/23 11:54 63 153/88 H 01/13/23 11:50 70 96 01/13/23 11:49 70 20 149/84 H 01/13/23 11:47 74 156/90 H 01/13/23 11:45 97 01/13/23 11:45 74 01/13/23 11:45 71 20 156/90 H 01/13/23 11:40 75 98 01/13/23 11:35 97 01/13/23 11:35 71 01/13/23 11:35 73 129/68 01/13/23 11:31 69 20 164/82 H 01/13/23 11:30 72 97 01/13/23 11:26 20 01/13/23 11:25 96 01/13/23 11:25 69 01/13/23 11:25 57 L 20 164/97 H 01/13/23 11:24 58 L 93 01/13/23 11:20 61 97 01/13/23 11:19 68 20 176/96 H 01/13/23 11:15 76 97 01/13/23 11:13 70 165/96 H 01/13/23 11:03 63 20 177/99 H 01/13/23 11:01 62 181/100 H 01/13/23 10:32 68 177/106 H 01/13/23 10:05 63 160/92 H 01/13/23 10:00 36.6 C 20 01/13/23 09:57 68 148/99 H
[2023-01-13] MEDS ORDERED: NURSING L&D Epidural Breakthrough Pain Update ONE (20:25)
[2023-01-13] MEDS ORDERED: DIPHTHERIA/TETANUS/PERTUSSIS Vaccine (Tdap, Age 7+yrs) 0.5mL SYR/VL IM ONE (21:06)
[2023-01-13] MEDS ORDERED: bisacodyL 10 MG SUPP PR PRN (21:06)
[2023-01-13] MEDS ORDERED: ACETAMINOPHEN 325 MG TAB PO PRN (21:06)
[2023-01-13] MEDS ORDERED: oxyCODONE/ACETAMINOPHEN 5mg/325mg TAB PO PRN (21:06)
[2023-01-13] MEDS ORDERED: HYDROCORTISONE ACETATE 25 MG SUPP PR PRN (21:06)
[2023-01-13] MEDS ORDERED: BENZOCAINE 20% SPRY 85 APPLN/85 GM CAN EXT PRN (21:06)
--- NOTE | 2023-01-13 21:11 | Delivery Summary ---
Vaginal Delivery Summary Date of Service January 13, 2023 Vaginal Delivery Summary Delivery Note History synopsis: Patient is a 37-year-old -0-0-3 admitted at 37 weeks and 0 days for preeclampsia with nonsevere features. However when she was admitted she had missed her first dose of labetalol this morning. And had severe range blood pressures. She met the criteria for preeclampsia with severe features and was treated with IV labetalol, started on magnesium sulfate for seizure prophylaxis, and started on nifedipine 30 mg extended release daily. She is given 1 dose of misoprostol sublingually. She was bakari every 1 to 2 to 3 minutes, and received an epidural for pain control. She was checked and found to be 3 cm and artificial rupture of membranes was performed, and she was started on oxytocin for augmentation. She then progressed to complete and I was called for delivery Delivery Summary: Patient was placed in the dorsal lithotomy position. She was prepped and draped in the usual sterile fashion. Upon maternal pushing the head was delivered atraumatically followed by the anterior shoulders, posterior shoulders then the remainder of the infants body. The was immediately placed on mother's abdomen, dried and stimulated. Delayed cord clamping for 60 seconds was performed. The infants mouth and nose were bulb suctioned by nursing staff. A male infant was delivered at 2037, weight pending with APGARS of 8 at 1 minute and 9 at 5 minutes. The infant was handed off to the awaiting nursing staff. Cord blood gases were not obtained. The placenta delivered intact with three vessel cord at 2039. Placenta was sent to pathology. Thirty units of Pitocin were added to the IV fluid and allowed to run freely. Uterine massage was performed until uterus was deemed firm. Upon inspection of the perineum, cervix were intact. Second degree laceration was noted which was repaired with 3-0 vicryl in the usual fashion. Also noted a small periurethral laceration that was bleeding. Red rubber catheter was placed, and periurethral laceration was closed with a [id number] of 3-0 chromic. Good hemostasis was noted. Red rubber catheter was then removed upon re-inspection the patient was hemostatic. Uterus again massaged and found to be firm. Needle and sponge counts were correct. Patient was stable and allowed to recover in L&D room. Infant was stable and remained in room with mother in the labor and delivery unit. EBL 300 RN inserted catheter at the termination of the procedure, as patient will be on magnesium sulfate for seizure prophylaxis for 24 hours
--- NOTE | 2023-01-13 21:27 | Anesthesia Procedure Note ---
Date of Service January 13, 2023 Anesthesia Post Epidural Note Vital Signs Vital Signs: Temp Pulse Resp BP Pulse Ox 36.6 C 88 20 137/72 97 01/13/23 19:00 01/13/23 21:25 01/13/23 21:00 01/13/23 21:13 01/13/23 21:25 Pain Intensity Bilateral Abdomen: Pain Intensity: 0 Notes Mental Status: alert / awake / arousable and participated in evaluation Nausea / Vomiting: adequately controlled Pain: adequately controlled Airway Patency, RR, SpO2: stable & adequate BP & HR: stable & adequate Hydration State: stable & adequate Neuraxial Anesthesia: was administered and sensory block is resolving Anesthetic Complications: no major complications apparent Epidural: Removed without complications and With tip intact
[2023-01-13] MEDS ORDERED: Nursing to Pharmacy Communication SCH (21:30)
[2023-01-13] MEDS: IBUPROFEN 600 MG TAB PO PRN (23:22)
[2023-01-14] MEDS: IBUPROFEN 600 MG TAB PO PRN ×3 (04:57→20:57)
[2023-01-14] MEDS: MAGNESIUM SULFATE / WTR 40 GM/1,000 ML BAG IV SCH (05:28)
[2023-01-14] MEDS: LEVOTHYROXINE SODIUM 100 MCG TABLET PO SCH (06:20)
[2023-01-14 07:37] LABS: Hematocrit (blood only) 35.1 % (37.0-47.0); Hemoglobin 11.8 g/dl (12.0-16.0); Mean Corpuscular Hemoglobin 28.8 pg (25.0-34.0); Mean Corpuscular Hgb Conc 33.6 g/dL (32.0-36.0); Mean Corpuscular Volume 85.6 fL (80.0-100.0); Mean Platelet Volume 11.8 fL (9.4-12.4); Platelet Count 173 K/uL (130-400); RDW Coefficient of Variation 14.7 % (11.5-14.5); RDW Standard Deviation 45.7 fL (36.4-46.3); White Blood Count 9.06 K/ul (4.8-10.8)
[2023-01-14 07:43] LABS: Albumin Globulin Ratio 1.1 (0.9-2); BUN Creatinine Ratio 11.8 (10-20); Bilirubin,Total 0.4 mg/dl (0.2-1.0); Calcium 6.6 mg/dl (8.6-10.3); Creatinine Clr Calc Pharmacy 143.5 ml/min; Est GFR (African American) 144.4 ml/min; Est GFR (Non-African American) 124.6 ml/min; Globulin 2.7 gm/dl (2.5-4.0); Potassium 4.1 mmol/L (3.5-5.1); Total Protein 5.7 gm/dl (6.0-8.3)
--- NOTE | 2023-01-14 08:18 | Obstetrical Progress Note ---
Date of Service January 14, 2023 Assessment & Plan (1) Preeclampsia in period: PPD #1 pt dong well Stable BP and labs On Magnesium will d/c mag. a@ 20:00hrs today Results & Data Vital Signs (Past 12 Hours) Vital Signs Temp Pulse Resp BP Pulse Ox O2 Del Method 01/14/23 08:13 70 137/88 01/14/23 08:12 72 96 01/14/23 08:07 72 96 01/14/23 08:02 74 97 01/14/23 07:57 76 96 01/14/23 07:52 70 95 01/14/23 07:47 67 96 01/14/23 07:42 72 95 01/14/23 07:37 78 97 01/14/23 07:32 71 97 01/14/23 07:27 73 97 01/14/23 07:22 80 99 01/14/23 07:17 79 96 01/14/23 07:13 73 141/94 H 01/14/23 07:12 79 97 01/14/23 07:07 79 97 01/14/23 07:02 84 98 01/14/23 06:57 62 96 01/14/23 06:52 62 96 01/14/23 06:47 62 96 01/14/23 06:42 64 96 01/14/23 06:37 63 96 01/14/23 06:32 69 97 01/14/23 06:27 77 97 01/14/23 06:22 67 96 01/14/23 06:17 78 97 01/14/23 06:15 18 01/14/23 06:13 77 126/81 01/14/23 06:12 71 96 01/14/23 06:07 69 95 01/14/23 06:02 62 96 01/14/23 05:57 65 96 01/14/23 05:52 68 96 01/14/23 05:47 67 95 01/14/23 05:42 76 95 01/14/23 05:37 71 96 01/14/23 05:32 70 94 01/14/23 05:27 79 95 01/14/23 05:22 72 95 01/14/23 05:17 72 96 01/14/23 05:13 73 116/76 01/14/23 05:12 78 95 01/14/23 05:07 75 96 01/14/23 05:02 70 95 01/14/23 05:00 18 01/14/23 04:57 78 95 01/14/23 04:52 78 95 01/14/23 04:47 72 95 01/14/23 04:42 80 96 01/14/23 04:37 79 96 01/14/23 04:32 78 94 01/14/23 04:27 76 93 01/14/23 04:22 81 95 01/14/23 04:17 79 95 01/14/23 04:15 18 01/14/23 04:15 36.5 C 18 01/14/23 04:13 80 116/74 01/14/23 04:12 86 95 01/14/23 04:07 83 94 01/14/23 04:02 84 95 01/14/23 03:57 79 94 01/14/23 03:52 70 94 01/14/23 03:47 72 94 01/14/23 03:42 77 93 01/14/23 03:37 82 95 01/14/23 03:32 73 95 01/14/23 03:27 80 94 01/14/23 03:22 81 96 01/14/23 03:17 74 95 01/14/23 03:15 16 01/14/23 03:13 83 122/78 01/14/23 03:12 77 95 01/14/23 03:07 73 95 01/14/23 03:02 75 95 01/14/23 02:57 76 95 01/14/23 02:52 76 95 01/14/23 02:47 75 95 01/14/23 02:42 74 95 01/14/23 02:37 80 96 01/14/23 02:32 72 96 01/14/23 02:27 81 96 01/14/23 02:22 81 96 01/14/23 02:17 76 96 01/14/23 02:13 75 118/74 01/14/23 02:12 77 95 01/14/23 02:10 16 01/14/23 02:07 89 96 01/14/23 02:02 76 94 01/14/23 01:57 76 95 01/14/23 01:52 77 95 01/14/23 01:47 76 95 01/14/23 01:42 83 95 01/14/23 01:37 90 96 01/14/23 01:32 80 96 01/14/23 01:27 83 97 01/14/23 01:22 82 97 01/14/23 01:17 84 98 01/14/23 01:15 16 01/14/23 01:13 81 125/78 01/14/23 01:12 85 97 01/14/23 01:07 80 97 01/14/23 01:02 81 97 01/14/23 00:57 86 98 01/14/23 00:52 89 97 01/14/23 00:47 80 96 01/14/23 00:42 80 97 01/14/23 00:37 82 97 01/14/23 00:32 81 97 01/14/23 00:27 81 97 01/14/23 00:22 84 97 01/14/23 00:17 85 97 01/14/23 00:13 83 128/79 01/14/23 00:12 88 98 01/14/23 00:10 18 01/14/23 00:07 95 H 98 01/14/23 00:02 92 H 98 01/13/23 23:57 85 98 01/13/23 23:52 90 97 01/13/23 23:47 90 97 01/13/23 23:42 91 H 96 01/13/23 23:37 85 95 01/13/23 23:35 86 94 01/13/23 23:32 86 96 01/13/23 23:12 80 126/84 01/13/23 23:10 83 96 01/13/23 23:05 81 97 01/13/23 23:00 36.7 C 18 01/13/23 23:00 18 01/13/23 23:00 Room Air 01/13/23 23:00 86 97 01/13/23 22:57 81 133/85 01/13/23 22:55 83 96 01/13/23 22:50 82 96 01/13/23 22:45 85 96 01/13/23 22:42 90 124/70 01/13/23 22:40 86 97 01/13/23 22:35 81 97 01/13/23 22:30 77 96 01/13/23 22:27 81 133/80 01/13/23 22:25 20 01/13/23 22:25 81 97 01/13/23 22:20 84 97 01/13/23 22:15 85 96 01/13/23 22:12 84 140/83 01/13/23 22:10 84 97 01/13/23 22:05 75 97 01/13/23 22:00 79 97 01/13/23 21:57 85 143/89 H 01/13/23 21:55 93 H 94 01/13/23 21:50 82 97 01/13/23 21:45 89 96 01/13/23 21:43 87 131/67 01/13/23 21:40 84 97 01/13/23 21:35 88 98 01/13/23 21:30 86 97 01/13/23 21:27 83 155/82 H 01/13/23 21:25 20 01/13/23 21:25 88 97 01/13/23 21:20 89 97 01/13/23 21:15 85 97 01/13/23 21:13 85 137/72 01/13/23 21:10 90 95 01/13/23 21:09 85 93 01/13/23 21:05 82 98 01/13/23 21:00 20 01/13/23 21:00 84 98 01/13/23 20:55 85 98 01/13/23 20:50 88 97 01/13/23 20:45 87 97 01/13/23 20:40 80 96 01/13/23 20:37 84 93 01/13/23 20:35 78 97 01/13/23 20:31 76 94 01/13/23 20:30 75 95 01/13/23 20:25 20 01/13/23 20:25 88 96 01/13/23 20:20 84 96 01/13/23 20:19 81 94
[2023-01-14] MEDS: FERROUS SULFATE 325 MG TAB PO SCH (08:52)
[2023-01-14] MEDS: NIFEdipine EXTENDED REL 30 MG TABCR PO SCH (08:52)
[2023-01-14] MEDS: DOCUSATE SODIUM 100 MG CAP PO SCH ×2 (08:52→20:57)
[2023-01-14] MEDS: PRENATAL VITAMIN 1 TAB PO SCH (08:52)
[2023-01-14] MEDS: LACTATED RINGER'S 1,000 ML IV PRN (10:10)
[2023-01-14] MEDS ORDERED: bisacodyL 5 MG TABEC PO SCH (20:00)
[2023-01-15] MEDS: LEVOTHYROXINE SODIUM 100 MCG TABLET PO SCH (06:33)
[2023-01-15] MEDS: IBUPROFEN 600 MG TAB PO PRN ×2 (06:33→20:14)
[2023-01-15 08:07] LABS: Hematocrit (blood only) 38.9 % (37.0-47.0); Hemoglobin 12.4 g/dl (12.0-16.0); Mean Corpuscular Hemoglobin 28.3 pg (25.0-34.0); Mean Corpuscular Hgb Conc 31.9 g/dL (32.0-36.0); Mean Corpuscular Volume 88.8 fL (80.0-100.0); Mean Platelet Volume 10.8 fL (9.4-12.4); Platelet Count 205 K/uL (130-400); RDW Coefficient of Variation 15.3 % (11.5-14.5); RDW Standard Deviation 49.5 fL (36.4-46.3); Red Blood Count 4.38 M/uL (4.20-5.40); White Blood Count 6.72 K/ul (4.8-10.8)
[2023-01-15] MEDS: DOCUSATE SODIUM 100 MG CAP PO SCH ×4 (08:40→21:03)
[2023-01-15] MEDS: NIFEdipine EXTENDED REL 30 MG TABCR PO SCH (08:40)
[2023-01-15] MEDS: FERROUS SULFATE 325 MG TAB PO SCH (08:40)
[2023-01-15] MEDS: PRENATAL VITAMIN 1 TAB PO SCH (08:40)
[2023-01-15 08:41] LABS: Albumin Level 3.2 gm/dl (3.4-5.0); BUN Creatinine Ratio 12.2 (10-20); Bilirubin,Total 0.4 mg/dl (0.2-1.0); Calcium 7.2 mg/dl (8.6-10.3); Creatinine Clr Calc Pharmacy 98.9 ml/min; Est GFR (African American) 121.7 ml/min; Globulin 3.1 gm/dl (2.5-4.0); Potassium 4.2 mmol/L (3.5-5.1); Total Protein 6.3 gm/dl (6.0-8.3)
--- NOTE | 2023-01-15 10:48 | Obstetrical Progress Note ---
Date of Service January 15, 2023 Assessment & Plan (1) Preeclampsia in period: PPD #2 pt doing well OFf Mg On Procardia XR.AM BP was elevated. will repeat BP series AM labs NMl anticipate PM disch if BP's are nml Subjective Ambulation: ambulating normally Voiding: no voiding problems Passing Gas:: Yes Diet Tolerance:: regular diet Lochia:: Small Feeding Type:: breast feeding Review of Systems All systems reviewed & are unremarkable except as noted in HPI & below Physical Exam Constitutional WD/WN, vitals as above well developed and well nourished Eyes PERRL, conjunctivae normal, anicteric sclerae Neck trachea midline, no thyromegaly Respiratory normal respiratory effort, lungs clear to auscultation Auscultation: no crackles, no rales and no wheezes Cardiovascular RRR, no murmur, no edema Gastrointestinal (Abdomen) normal bowel sounds, soft, nontender, no hepatosplenomegaly Uterus is below umbilicus Musculoskeletal no cyanosis or clubbing, extremities motor strength 5/5 Skin no rashes, warm and dry Neurologic patellar DTR's 2+ bilat, sensation intact Psychiatric A+Ox3, euthymic affect Genitourinary normal external appearance Results & Data Vital Signs (Past 12 Hours) Vital Signs Temp Pulse Pulse Resp BP Pulse Ox O2 Del Method 01/15/23 08:40 36.5 C 79 18 151/92 H Room Air 01/15/23 02:45 36.8 C 82 16 129/83 97 Room Air 01/14/23 23:00 36.7 C 83 18 128/83 96 Room Air
[2023-01-15] MEDS ORDERED: hydrALAZINE HCL 20 MG/ML VIAL IV STA (11:09)
[2023-01-15] MEDS: LABETALOL HCL 200 MG TAB PO SCH ×2 (12:05→20:14)
[2023-01-15] MEDS ORDERED: MAG SULFATE 4GM BOLUS FROM BAG IV ONE (15:13)
--- NOTE | 2023-01-15 15:13 | Obstetrical Progress Note ---
Date of Service January 15, 2023 Assessment & Plan (1) Preeclampsia in period: Plan: Pt is s/p GHTN with superimposed preeclampsia Pt was doing well with Nml BP's This Am her LFT was elevated Repeat LFT's continued to be elevated with LDH and uric acid elevation Plan RTC to L&D for magnesium tx and preeclampsia precautions Admission and Anticipated Discharge Date Admission Date: January 13, 2023 Results & Data Vital Signs (Past 12 Hours) Vital Signs Temp Pulse Resp BP O2 Del Method 01/15/23 13:10 16 149/98 H 01/15/23 12:05 36.5 C 88 18 156/87 H Room Air 01/15/23 11:55 158/88 H 01/15/23 11:10 173/113 H 01/15/23 09:30 161/115 H 01/15/23 08:40 36.5 C 79 18 151/92 H Room Air
[2023-01-15] MEDS ORDERED: MAGNESIUM SULFATE / WTR 40 GM/1,000 ML BAG IV SCH (15:15)
--- NOTE | 2023-01-15 15:19 | Obstetrical Progress Note ---
Date of Service January 15, 2023 Assessment & Plan (1) Preeclampsia in period: Plan: S/P preeclampsia elevated BP this A, on Procardia Hydralazine given and started on labetalol pt seems to respond better on labetalol will monitor Bp on labetalol till am Admission and Anticipated Discharge Date Admission Date: January 13, 2023 Results & Data Vital Signs (Past 12 Hours) Vital Signs Temp Pulse Resp BP O2 Del Method 01/15/23 13:10 16 149/98 H 01/15/23 12:05 36.5 C 88 18 156/87 H Room Air 01/15/23 11:55 158/88 H 01/15/23 11:10 173/113 H 01/15/23 09:30 161/115 H 01/15/23 08:40 36.5 C 79 18 151/92 H Room Air
[2023-01-16] MEDS: IBUPROFEN 600 MG TAB PO PRN ×3 (04:03→20:12)
[2023-01-16] MEDS: LEVOTHYROXINE SODIUM 100 MCG TABLET PO SCH (06:22)
[2023-01-16 06:38] LABS: Hemoglobin 11.3 g/dl (12.0-16.0); Mean Corpuscular Hgb Conc 33.2 g/dL (32.0-36.0); Mean Corpuscular Volume 87.2 fL (80.0-100.0); Mean Platelet Volume 10.7 fL (9.4-12.4); Platelet Count 188 K/uL (130-400); RDW Coefficient of Variation 15.2 % (11.5-14.5); RDW Standard Deviation 48.4 fL (36.4-46.3); White Blood Count 6.13 K/ul (4.8-10.8)
[2023-01-16 07:10] LABS: Albumin Globulin Ratio 1.1 (0.9-2); Bilirubin,Total 0.3 mg/dl (0.2-1.0); Calcium 8.1 mg/dl (8.6-10.3); Creatinine Clr Calc Pharmacy 126.2 ml/min; Est GFR (African American) 138.4 ml/min; Est GFR (Non-African American) 119.4 ml/min; Globulin 2.7 gm/dl (2.5-4.0); Total Protein 5.7 gm/dl (6.0-8.3)
[2023-01-16] MEDS: FERROUS SULFATE 325 MG TAB PO SCH (08:37)
[2023-01-16] MEDS: PRENATAL VITAMIN 1 TAB PO SCH (08:37)
[2023-01-16] MEDS: LABETALOL HCL 200 MG TAB PO SCH (08:37)
[2023-01-16] MEDS ORDERED: LABETALOL HCL 100 MG TAB ONE (10:18)
--- NOTE | 2023-01-16 10:28 | Obstetrical Progress Note ---
Date of Service January 16, 2023 Subjective Ambulation: ambulating normally Voiding: no voiding problems Passing Gas:: Yes Diet Tolerance:: regular diet Lochia:: Small Feeding Type:: breast feeding Current Pain Level(1-10): 0 doing well. denies headache or visual changes. Physical Exam Constitutional WD/WN, vitals as above Gastrointestinal (Abdomen) Inspection/Auscultation: abdomen normal to inspection fundus firm. abdomen soft. Musculoskeletal Extremities: extremities normal to inspection Skin no rashes, warm and dry Results & Data Vital Signs (Past 12 Hours) Vital Signs Temp Pulse Resp BP BP Pulse Ox O2 Del Method 01/16/23 09:58 170/100 H 01/16/23 09:55 168/102 H 176/104 H 01/16/23 08:35 36.7 C 71 17 174/101 H 98 Room Air 01/16/23 04:02 132/83 01/15/23 23:43 36.9 C 84 18 132/78 95 Room Air Laboratory Results Laboratory Results - last 72 hr 01/13/23 01/13/23 01/13/23 10:06 11:38 Unknown WBC 6.83 RBC 4.17 L Hgb 12.1 Hct 36.8 L MCV 88.2 MCH 29.0 MCHC 32.9 RDW Std Deviation 46.5 H RDW Coeff of [place] 14.6 H Plt Count 173 MPV 11.9 Sodium 136 Potassium 4.2 Chloride 107 Carbon Dioxide 21 Anion Gap 8 BUN 9 Creatinine 0.62 Est Cr Clr Drug Dosing 118.1 Est GFR ( Amer) 135.4 Est GFR (Non-Af Amer) 116.8 BUN/Creatinine Ratio 14.5 Glucose 88 Uric Acid 6.5 Calcium 8.5 L Magnesium (Sulf Ther) 3.8 L Total Bilirubin 0.3 AST 17 ALT 11 Alkaline Phosphatase 121 H Lactate Dehydrogenase 176 Total Protein 6.2 Albumin 3.2 L Globulin 3.0 Albumin/Globulin Ratio 1.1 TSH 4.273 Ur Random Creatinine 41.2 U Random Total Protein 33.4 H Protein/Creatinin Ratio 0.8 H 01/14/23 01/15/23 01/16/23 06:28 07:41 06:13 WBC 9.06 6.72 6.13 RBC 4.10 L 4.38 3.90 L Hgb 11.8 L 12.4 11.3 L Hct 35.1 L 38.9 34.0 L MCV 85.6 88.8 87.2 MCH 28.8 28.3 29.0 MCHC 33.6 31.9 L 33.2 RDW Std Deviation 45.7 49.5 H 48.4 H RDW Coeff of [place] 14.7 H 15.3 H 15.2 H Plt Count 173 205 188 MPV 11.8 10.8 10.7 Sodium 134 L 137 138 Potassium 4.1 4.2 4.0 Chloride 104 105 108 H Carbon Dioxide 22 25 23 Anion Gap 8 7 7 BUN 6 9 11 Creatinine 0.51 L 0.74 0.58 L Est Cr Clr Drug Dosing 143.5 98.9 126.2 Est GFR ( Amer) 144.4 121.7 138.4 Est GFR (Non-Af Amer) 124.6 105.0 119.4 BUN/Creatinine Ratio 11.8 12.2 19.0 Glucose 72 88 89 Uric Acid Calcium 6.6 L 7.2 L 8.1 L Magnesium (Sulf Ther) Total Bilirubin 0.4 0.4 0.3 AST 19 17 12 L ALT 11 13 11 Alkaline Phosphatase 110 H 108 H 86 Lactate Dehydrogenase Total Protein 5.7 L 6.3 5.7 L Albumin 3.0 L 3.2 L 3.0 L Globulin 2.7 3.1 2.7 Albumin/Globulin Ratio 1.1 1.0 1.1 TSH Ur Random Creatinine U Random Total Protein Protein/Creatinin Ratio
[2023-01-16] MEDS: DOCUSATE SODIUM 100 MG CAP PO SCH ×2 (13:13→20:12)
[2023-01-16] MEDS: LABETALOL HCL 300 MG TAB PO SCH ×2 (14:12→20:59)
[2023-01-16] MEDS ORDERED: NIFEdipine EXTENDED REL 30 MG TABCR PO STA (15:31)
[2023-01-17 06:42] LABS: Hematocrit (blood only) 35.4 % (37.0-47.0); Hemoglobin 11.6 g/dl (12.0-16.0); Mean Corpuscular Hemoglobin 29.1 pg (25.0-34.0); Mean Corpuscular Hgb Conc 32.8 g/dL (32.0-36.0); Mean Corpuscular Volume 88.7 fL (80.0-100.0); Mean Platelet Volume 10.6 fL (9.4-12.4); Platelet Count 187 K/uL (130-400); RDW Coefficient of Variation 14.6 % (11.5-14.5); RDW Standard Deviation 47.4 fL (36.4-46.3); Red Blood Count 3.99 M/uL (4.20-5.40); White Blood Count 5.88 K/ul (4.8-10.8)
--- OUTSIDE RECORDS SUMMARY | 2023-01-17 06:47 | External Medical Summary | Summary of Care ---
Author Name Unknown Organization [facility] Address [address] [facility] [place] [address] Phone [phone] Care Team Providers Care First Aid Director Name Role Phone Chelo Louie DO Primary Care Provider Reason for Visit * Reason Comments Non Stress Test Encounter Details Date Type Department Care Team (Late st Contact Info) Description 01/11/2023 10:45 AM EST Office Visit Gynecology/Obstetric s [facility] [address] [place] [address] Mikala Harris CRNP [address] [place] [address] [facility] Non Stress Tests [facility] [address] [place] [address] High-risk in third trimester*; Hypothyroidism affecting in third trimester; Antepartum multigravida of advanced maternal age; Pre-eclampsia in third trimester; Preeclampsia, third trimester Allergies Active Allergy Reactions Criticality Noted Date Comments Cefaclor Rash 07/11/2013 documented as of this encounter (statuses as of 01/11/2023) Medications Medication Sig Dispensed Refills Start Date End Date Status Vit-Fe Fumarate-FA ( FORMULA) 27-1 MG Tablet 0 Active Levothyroxine Sodium 100 MCG Oral Tablet (Levoxyl) Take 1 Tablet by mouth in the morning. (at least 30 min prior to breakfast or other meds). 34 Tablet 5 06/27/2022 Active Nystatin 468958 UNIT/GM External Cream Apply topically to affected area 2 times a day. Apply to stomach twice a day as needed for rash 30 g 0 09/27/2022 Active Aspirin 81 MG Oral Tablet Delayed Release Take 1 Tablet by mouth in the morning. 100 Tablet 3 12/22/2022 Active Fluticasone Propionate 50 MCG/ACT Nasal Suspension (Flonase) Administer 1 [place] into nostril in the morning. 0 Active Loratadine-Pseud oephedrine ER 10-240 MG Tablet Extended Release 24 Hour (Claritin-D 24 Hour) Take 1 Tablet by mouth in the morning. 0 Active Labetalol HCl 100 MG Oral Tablet (Normodyne)Indic ations:Preeclamp natali, third trimester Take 2 Tablets by mouth in the morning and 2 Tablets at noon and 2 Tablets in the evening. 60 Tablet 1 01/11/2023 Active Labetalol HCl 100 MG Oral Tablet (Normodyne)Indic ations:Preeclamp natali, third trimester Take 2 Tablets by mouth in the morning and 2 Tablets before bedtime. 60 Tablet 0 01/09/2023 01/11/2023 Discontinue d(Refill) documented as of this encounter (statuses as of 01/11/2023) Active Problems Problem Noted Date Diagnosed Date Pre-eclampsia in third trimester 01/10/2023 High-risk 07/25/2022 Antepartum multigravida of advanced maternal age 0406/24/2022 Overview: Declines genetics Hypothyroidism affecting in third trim ivonne 07/05/2019 Overview: History of valdemar's. TSH each trimester. Increased to 100mcg levothyroxine 06/27/2022, recheck at next visit Refer to M if adjust meds after 1st trimester TSH Results: Lab Results Component Value Date/Time TSH - [facility] 0.29 11/18/2022 02:50 PM TSH - [facility] 0.28 11/18/2022 02:50 PM TSH - [facility] 2.33 09/27/2022 10:29 AM TSH - [facility] 3.04 08/05/2019 10:15 AM TSH - [facility] 3.43 06/24/2019 10:09 AM TSH - [facility] 1.83 03/04/2019 10:59 AM DISCUSSION: Last Assessment & Plan: DISCUSSION: 1. Discussed with the patient that uncontrolled maternal hypothyroidism is associated with compromised neuropsychological development of the developing fetus in addition to an increased risk of miscarriage, , pre-eclampsia, placental abruption, low weight infants, and IUFD. These risks are modifiable with thyroid-replacement medications. Thyroid-replacement therapies are safe to use during and essential to normal development. One third of hypothyroid patients will require increased T4 supplementation in . 2. Discussed that she should space her thyroxine dose and her vitamin, iron or calcium doses by 2-3 hours as these can interfere with thyroxine absorption. RECOMMENDATIONS: 1. In women with prepregnancy diagnosis of hypothyroidism, recommend assessing TSH every 4-6 weeks until the patient is euthyroid based on TSH (first trimester, 0.1-2.5 mIU/L; second trimester, 0.2-3.0 mIU/L; third trimester, 0.3-3.0 mIU/L. 2. After any adjustment of thyroid replacement dosing, recheck TSH 4 weeks later. 3. In those with previous radioiodine ablation or thyroidectomy, anticipatory increases of T4 replacement by 25% are suggested to decrease the likelihood of significant hypothyroidism in . 4. If patient experiences thyroid goiter or nodule during , we recommend that she be referred to endocrinology for evaluation and management. is not a contraindication to fine needle aspiration, but should be handled at the discretion of the welt slasher. 5. Recommend follow up ultrasound for growth in 4-6 weeks Adult BMI 19-24 kg/sq m 08/11/2014 Estimated Date of Delivery Comme nts Yes 02/03/2023 Based on Ultraso und documented as of this encounter (statuses as of 01/11/2023) Resolved Problems Problem Noted Date Diagnosed Date Resolved Date Supervision of high-risk pre gnancy, third trimester 07/05/2019 10/17/2019 Overview: Tdap given in left deltoid today 08/20/2019. Mariah Mobley LPN History of prior with IUGR 0 10/17/2019 Last Assessment & Plan: 1. Discussed that patients with a history of IUGR pregnancies are at risk for recurrence. Discussed that there are currently no known interventions for prevention of subsequent IUGR aside from eliminating possible risk factors such as poor nutrition, poor care, tobacco/ETOH exposure. 2. Recommend Maternal Medicine ultrasound for growth in 4 to 6 weeks. Subchorionic hemorrhage of fredy garibay in first trimester 02/05/2019 10/17/2019 Overview: 02/05/19 - subchorionic hemorrhage measuring 22 x 10 x 17 mm left inferior to the gestational sac. - Jud Thorpe CNM INFORMATION 12/12/2016 02/12/2017 Overview: Patient received flu vaccine elsewhere. 12/12/2016 Carmita Akbar RN Would like TDAP next visit. 12/26/2016 Tdap Vaccine administered per clinic protocol. Pt given VIS(vaccine information sheet) Sonali Drew RN Abnormal glucose tolerance i n mother complicating 11/15/2016 02/12/2017 Overview: Elevated glucola, 3hr GTT ordered Supervision of other normal , antepartum 06/22/2016 02/12/2017 Encounter for supervision of normal first in first trimester 10/21/2014 04/28/2015 Overview: Got flu vaccine at 's work Tdap vaccine administered 02/19/2015 Yao Heller RN Plan to breastfeed. Took Brittney Lauren's class. Hoping for unmedicated labor/. 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 Pt taking 50 mcg every other day and 25 mcg every other day. Will increase 25 mcg to 37.5 mcg every other day. Please order TSH in 3 weeks. - Jud Thorpe CNM 03/04 TSH=1.83 06/23/18 - pt 27w6d at 3.43. RECOMMENDATIONS: - In women with prepregnancy diagnosis of hypothyroidism, recommend assessing TSH every 4-6 weeks until the patient is euthyroid based on TSH (first trimester, 0.1-2.5 mIU/L; second trimester, 0.2-3.0 mIU/L; third trimester, 0.3-3.0 mIU/L. - After any adjustment of thyroid replacement dosing, recheck TSH 4 weeks later. - Once euthyroidism is attained, TSH should be assessed every trimester. - In those with previous radioiodine ablation or thyroidectomy, anticipatory increases of T4 replacement by 25% are suggested to decrease the likelihood of significant hypothyroidism in . - Maternal Medicine ultrasound is only indicated if patient requires an adjustment of her thyroid replacement therapy dosing after the first trimester of . Refer back to Maternal Medicine if this occurs. She should continue to have growth assessments with Maternal Medicine while she is clinically hypothyroid. -If patient experiences thyroid goiter or nodule during , we recommend that she be referred to endocrinology for evaluation and management. is not a contraindication to fine needle aspiration, but should be handled at the discretion of the welt slasher. documented as of this encounter (statuses as of 01/11/2023) Immunizations Name Administration Dates Next Due SEASONAL INFLUENZA, PF, 6 M & Above, IM , (FLULAVAL or FLUZONE) 12/05/2022,12/24/2020,12/23/2019 Seasonal Influenza, Split, I IV3, With Preserve, Inj 01/03/2014 TDAP (age 10 and older)(Boostrix) 2022,08/20/2019,12/26/2016,02/20/20 15 documented as of this encounter Social History Tobacco Use Types Packs/Day Years Used Date Smoking Tobacco: Never Smokeless Tobacco: Never Alcohol Use Standard Drinks/Week Comments No 0 (1 standard drink = 0.6 oz pur e alcohol) PHQ-2 Answer Date Recorded PHQ-2 Score 0 01/07/2018 Hunger Vital Sign Answer Date Recorded Within the past 12 months, y ou worried that your food would run out before you got the money to buy more. Never true 11/19/19 23 Within the past 12 months, t he food you bought just didn't last and you didn't have money to get more. Never true 11/18/2022 [place] Depression Scale Answer Date Recorded [place] Depression Scale Total 0 11/18/2022 The thought of harming myself has occurred to me . Never 11/18/2022 Estimated Date of Delivery Comme nts Yes 02/03/2023 Based on Ultraso und Sex and Gender Information Value Date Recorded Sex Assigned at Female 11/18/2022 2:06 PM EDT Gender Identity Female 11/18/2022 2:06 PM EDT Sexual Orientation Straight 11/18/2022 2: 06 PM EDT Job Start Date Occupation Industry Not on file Not on file Not on file documented as of this encounter Last Filed Vital Signs Vital Sign Reading Time Taken Comments Blood Pressure 142/94 01/11/2023 10:43 AM EST Pulse - - Temperature - - Respiratory Rate - - Oxygen Saturation - - Inhaled Oxygen Concentration - - Weight 79.4 kg (175 lb) 01/11/2023 10:43 AM EST Height 152.4 cm (5') 01/11/2023 10:43 AM EST Body Mass Index 34.18 01/11/2023 10:43 AM EST documented in this encounter Progress Notes * Mikala Harris CRNP - 01/11/2023 10:48 AM EST ASSESSMENT assessment with Non-stress Test completed on 01/11/2023 at 36w5d weeks gestation for indication of pre-eclampsia heart baseline: 130-140 bpm Variability: Moderate Decelerations: absent Accelerations: present Contractions: None NST start time: 1045 NST stop time: 1110 NST strip reviewed, interpreted, and approved by OB provider, SRIRAM Blanchard. NST strip stored in clinic storage file Good movement. No bleeding/ctx. Denies MALCOLM, vision changes, epigastric pain, new edema. BP 142/94, increase labetalol to 200 mg TID. She reports having enough pills at home for this. Blood work normal earlier this week. Induction is on Monday. Call office sooner with decreased FM, vaginal bleeding, new MALCOLM/vision changes, epigastric pain, swelling. SRIRAM Blanchard documented in this encounter Plan of Treatment Upcoming Encounters Date Type Department Care Team (Late st Contact Info) Description 02/01/2023 10:00 AM EST Telemedicine Gynecology/Obstetrics [address] [place] [address] Zahra Pearl, CN [address] [place] [phone] 02/21/2023 11:30 AM EST [facility] [address] [place] [address] Erendira Mosqueda CRNP [address] [place] [address] Health Maintenance Due Date Last Done Comments Hepatitis B (1 of 3 - 3-dose series) 1985 COVID-19 Vaccine (#1) 04/27/1988 Depression Screening 06/22/2018 06/22/2017 TSH 11/19/2023 11/18/2022, 11/04, 09/27/2022, Additional history exists GFR 01/10/2024 01/09/2023, 04/2022, 06/22/2020, Additional history exists Pap Smear 06/24/2025 06/24/2022, 04/2018, 07/07/2014, Additional history exists Diabetes Screening 01/09/2026 01/09/2023, 0 06/22/2020, 07/07/2014 Cervical Cancer Screening 06/25/2027 HPV/Co-Test 06/25/2027 06/24/2022 DTaP,Tdap,and Td Vaccines (5 - Td or Tdap) 11/18/2032 11/18/2022, 08/20/2019, 12/26/2016, Additional history exists Influenza Vaccine (FLU shot) Completed 04/2022, 12/24/2020, 12/23/2019, Additional history exists GARDASIL-HPV IMMUNIZATION SERIES Aged Out No longer eligible based on patient's age to complete this topic MENINGOCOCCAL (MENACTRA/MENVEO) Aged Out No longer eligible based on patient's age to complete this topic Pneumococcal Vaccine: Pediatrics (0 to 5 Years) and At-Risk Patients (6 to 64 Years) Aged Out No longer eligible based on patient's age to complete this topic documented as of this encounter Medical Devices Not on filedocumented as of this encounter Procedures Procedure Name Priority Date/Time Associated Diagnosis Comments URINALYSIS, POINT OF CARE (ENTER/EDIT) Routine 01/11/2023 High-risk in third trimester Pre-eclampsia in third trimester documented in this encounter Results * URINALYSIS, POINT OF CARE (ENTER/EDIT) (01/11/2023) Color, Urine Yellow Yellow or Light Yellow Clarity, Urine Clear Clear Glucose, Urine Negative Negative mg/dL Bilirubin, Urine Negative Negative Ketone, Urine Negative Negative mg/dL Specific [place], Urine 1.020 1.003 - 1.030 Blood, Urine Negative Negative pH, Urine 7.0 5.0 - 7.5 units Protein, Urine 100 Negative mg/dL Urobilinogen, Urine 0.2 0.2 - 1.0 mg/dL Nitrite, Urine Negative Negative Esterase, Urine Negative Negative Urine 01/11/2023 Mikala [facility]AT[facility] POINT O F CARE TEST ENTER/EDIT ORDERABLES documented in this encounter Visit Diagnoses Diagnosis High-risk in third trimester- Primary Hypothyroidism affecting in third trimester Antepartum multigravida of advanced maternal age Pre-eclampsia in third trimester Mild or unspecified pre-eclampsia, antepartum Preeclampsia, third trimester documented in this encounter Care Teams First Aid Director Relationship Specialty Start Date End Date Chelo Louie DO [address] [place] [address] PCP - General Family Medicine 07/02/14 documented as of this encounter
--- OUTSIDE RECORDS SUMMARY | 2023-01-17 06:47 | External Medical Summary | Summary of Care ---
Author Name Unknown Organization [facility] Address [address] [facility] [place] [address] Phone [phone] Care Team Providers Care Plastics Fabrication Supervisor Name Role Phone Chelo Louie DO Primary Care Provider Encounter Details Date Type Department Care Team (Late st Contact Info) Description 01/09/2023 Telephone Gynecology/Obstetrics [facility] [address] [place] [address] Jacquelyn Montero PA-C [address] [place] [address] Allergies Active Allergy Reactions Criticality Noted Date Comments Cefaclor Rash 07/11/2013 documented as of this encounter (statuses as of 01/09/2023) Medications Medication Sig Dispensed Refills Start Date End Date Status Vit-Fe Fumarate-FA ( FORMULA) 27-1 MG Tablet 0 Active Levothyroxine Sodium 100 MCG Oral Tablet (Levoxyl) Take 1 Tablet by mouth in the morning. (at least 30 min prior to breakfast or other meds). 34 Tablet 5 06/27/2022 Active Nystatin 621126 UNIT/GM External Cream Apply topically to affected area 2 times a day. Apply to stomach twice a day as needed for rash 30 g 0 09/27/2022 Active Aspirin 81 MG Oral Tablet Delayed Release Take 1 Tablet by mouth in the morning. 100 Tablet 3 12/22/2022 Active Fluticasone Propionate 50 MCG/ACT Nasal Suspension (Flonase) Administer 1 [place] into nostril in the morning. 0 Active Loratadine-Pseudoep hedrine ER 10-240 MG Tablet Extended Release 24 Hour (Claritin-D 24 Hour) Take 1 Tablet by mouth in the morning. 0 Active Labetalol HCl 100 MG Oral Tablet (Normodyne)Indicati ons:Preeclampsia, third trimester Take 2 Tablets by mouth in the morning and 2 Tablets before bedtime. 60 Tablet 0 01/09/2023 Active documented as of this encounter (statuses as of 01/09/2023) Active Problems Problem Noted Date Diagnosed Date Supervision of normal 07/25/2022 Antepartum multigravida of advanced maternal age 0406/24/2022 Overview: Declines genetics Hypothyroidism affecting in third trim ivonne 07/05/2019 Overview: History of valdemar's. TSH each trimester. Increased to 100mcg levothyroxine 06/27/2022, recheck at next visit Refer to M if adjust meds after 1st trimester TSH Results: Lab Results Component Value Date/Time TSH - [facility] 1.35 07/25/2022 08:50 AM TSH - [facility] 4.47 (H) 06/24/2022 12:41 PM TSH - [facility] 2.76 06/24/2021 07:43 AM TSH - [facility] 3.04 08/05/2019 10:15 [...] be handled at the discretion of the research clerk. 5. Recommend follow up ultrasound for growth in 4-6 weeks Adult BMI 19-24 kg/sq m 08/11/2014 Estimated Date of Delivery Comme nts Yes 02/03/2023 Based on Ultraso und documented as of this encounter (statuses as of 01/09/2023) Resolved Problems Problem Noted Date Diagnosed Date [...] 4 to 6 weeks. Subchorionic hemorrhage of p lacenta in first trimester 02/05/2019 10/17/2019 Overview: 02/05/19 [...] 's work Tdap vaccine administered 02/19/2015 Yao Heller, JANIE Plan to breastfeed. Took Brittney Lauren's class. [...] be handled at the discretion of the research clerk. documented as of this encounter (statuses as of 01/09/2023) Immunizations Name Administration Dates Next Due SEASONAL [...] money to get more. Never true 11/18/2022 Wallace Depression Scale Answer Date Recorded Wallace Depression Scale Total 0 11/18/2022 The thought [...] on file documented as of this encounter Miscellaneous Notes * Telephone Encounter - Deb Hickman OSA - 01/09/2023 3:10 PM EST Apt scheduled; pt aware * Telephone Encounter - Jacquelyn Montero PA-C - 01/09/2023 2:11 PM EST Please call patient and schedule growth ultrasound as soon as you can. Needs given now pre-eclampsia. Thank you! * Telephone Encounter - Jacquelyn Montero PA-C - 01/09/2023 2:11 PM EST Called and spoke with patient. Reviewed recommendation for growth ultrasound given pre-eclampsia diagnosis. Agreeable. documented in this encounter Plan of Treatment Upcoming Encounters Date Type Department Care Team (Late st Contact Info) Description 01/10/2023 10:15 AM EST Imaging Radiology [facility] [address] [place] [phone] 01/11/2023 10:45 AM EST Office Visit Gynecology/Obstetrics [facility] [address] [place] [phone] Mikala Harris CRNP [address] [place] [address] Oh Non Stress Tests [facility] [address] [place] [address] 02/01/2023 10:00 AM EST Telemedicine Gynecology/Obstetrics [facility] [address] [place] [address] Zahra Pearl, [facility] [address] [facility] [place] [address] 02/21/2023 11:30 AM EST Office Visit Gynecology/Obstetrics [facility] [address] [place] [address] Erendira Mosqueda CRNP [address] [place] [address] Health Maintenance Due Date Last Done Comments Hepatitis B (1 of 3 - 3-dose series) 1985 COVID-19 Vaccine (#1) 04/27/1988 Depression Screening 06/22/2018 06/22/2017 Diabetes Screening 06/23/2023 06/22/2020, 07/07/2014 TSH 11/19/2023 11/18/2022, 11/04, 09/27/2022, Additional history exists Pap Smear 06/24/2025 06/24/2022, 12/0 04/2018, 07/07/2014, Additional history exists Cervical Cancer Screening 06/25/2027 HPV/Co-Test 06/25/2027 06/24/2022 [...] Not on filedocumented as of this encounter Care Teams Plastics Fabrication Supervisor Relationship Specialty Start Date End Date Chelo Louie DO [address] [place] [address] PCP - General Family Medicine 07/02/14 documented as of this encounter
--- OUTSIDE RECORDS SUMMARY | 2023-01-17 06:48 | External Medical Summary ---
Author Name Unknown Address Unknown Organization [id number]:[facility] [place] - [address] [place] [address] Laboratory Report Ordering Provider Test Date Status CINDY HANKS 01/05/2023 08:46:45 Final Observation Date Value Abnormality Reference (Units ) Status Uric Acid 01/05/2023 08:46:45 6.1 Above high normal 2. 4-5.7 (mg/dL) Final Performing Location LAB[facility] - [address] [place] [address]
--- OUTSIDE RECORDS SUMMARY | 2023-01-17 06:48 | External Medical Summary | Summary of Care ---
Author Name Unknown Organization [facility] Address [address] [facility] [place] [address] Phone [phone] Care Team Providers Care Environmental Health Technologist Name Role Phone Chelo Louie DO Primary Care Provider Reason for Visit * Reason Comments Non Stress Test Encounter Details Date Type Department Care Team (Late st Contact Info) Description 01/09/2023 1:30 PM EST Office Visit Gynecology/Obstetric s [facility] [address] [place] [address] Jacquelyn Montero PA-C [address] [place] [address] Preeclampsia, third trimester*; Antepartum multigravida of advanced maternal age; Hypothyroidism affecting in third trimester; Encounter for supervision of other normal in third trimester; Encounter for supervision of other normal in third trimester [Z34.83] Allergies Active Allergy Reactions Criticality Noted Date [...] meds). 34 Tablet 5 06/27/2022 Active Nystatin 020572 UNIT/GM External Cream Apply topically to affected area 2 times a day. Apply to stomach twice a day as needed for rash 30 g 0 09/27/2022 Active Aspirin 81 MG Oral Tablet Delayed Release Take 1 Tablet by mouth in the morning. 100 Tablet 3 12/22/2022 Active Fluticasone Propionate 50 MCG/ACT Nasal Suspension (Flonase) Administer 1 [place] into nostril in the morning. 0 Active [...] be handled at the discretion of the process helper. 5. Recommend follow up ultrasound for growth [...] be handled at the discretion of the process helper. documented as of this encounter (statuses as [...] money to get more. Never true 11/18/2022 [place] Depression Scale Answer Date Recorded [place] Depression Scale Total 0 11/18/2022 The thought [...] Sign Reading Time Taken Comments Blood Pressure 150/90 01/09/2023 12:45 PM EST Pulse - - Temperature - - Respiratory Rate - - Oxygen Saturation - - Inhaled Oxygen Concentration - - Weight 79.7 kg (175 lb 9.6 oz) 01/09/2023 12:45 PM EST Height 152.4 cm (5') 01/09/2023 12:45 PM EST Body Mass Index 34.29 01/09/2023 12:45 PM EST documented in this encounter Progress Notes * Jacquelyn Montero PA-C - 01/09/2023 1:08 PM EST 36w3d Here for acute visit ERINN/NST/BP check. Diagnosed with pre-eclampsia in setting of elevated BP's and proteinuria. Has IOL scheduled for this Monday01/13/2023 moved from today to allow for lung maturity given pressures stable. Her BPtoday is unchanged from Saturday 01/06 at 150/90. Pt notes some mild increase in swelling in BLE, hands and face. Otherwise denies h/a, vision changes, RUQ pain, epigastric pain, cp or SOB. Has been monitoring home BP with cuff occasionally 140's systolic and as high as 94 diagnostic. Never greater orequal to 160/110. ASSESSMENT assessment with Non-stress Test completed on 01/09/2023 at 36.3 weeks gestation for indicationof pre-eclampsia heart baseline: 140 bpm, change in baseline to 135 bpm at approx 13:12 Variability: Moderate Decelerations: absent Accelerations: present Contractions: None NST start time: 12:51 NST stop time: 13:30 NST strip reviewed, interpreted, and approved by OB provider, Jacquelyn Montero PA-C. NST strip stored in clinic storage file Antepartum multigravida of advanced maternal age (Primary) Hypothyroidism affecting in third trimester Supervision of normal - GROUP B STREP CULTURE/PCR Preeclampsia, third trimester Reviewed case and management with Dr. Worthington. She agreed with following plan: - repeat labs today - start on Labetalol 200 mg (either BID or TID). I was comfortable with BID for now. - Call right away with any PEC symptoms, or BP at home >=160/110, or any labor symptoms Reviewed warning signs with pt: headaches, visual changes, RUQ pain, epigastric pain, rapid change in edema, chest pain, SOB. To call with any symptoms, pt has number. Will check BP at home as well. - Growth ultrasound given pre-eclampsia - RTC in 2 days for ERINN/BP/NST - CBC - COMPREHENSIVE METABOLIC PANEL - PROTEIN/ CREATININE RATIO, URINE - Labetalol HCl 100 MG Oral Tablet (Normodyne); Take 2 Tablets by mouth in the morning and 2 Tablets before bedtime. Follow Up: Return in about 2 days (around 01/11/2023), or if symptoms worsen or fail to improve, forReturn visit. | For: Return visit | Check- out note: ERINN/NST On Monday Please arrive at lab Jacquelyn Montero PA-C * Farida Ortega LPN - 01/09/2023 12:58 PM EST 36w3d Pt here for NST/ERINN/GBS. documented in this encounter Miscellaneous Notes * Addendum Note - Farida Ortega LPN - 01/09/2023 2:16 PM ESTAddended by: FARIDA ORTEGA on: 01/09/2023 02:16 PM Modules accepted: Orders documented in this encounter Plan of Treatment Upcoming Encounters Date Type Department Care Team (Late st Contact Info) Description 01/11/2023 10:45 AM EST Office Visit Gynecology/Obstetrics [facility] [address] [place] [phone] BackerMikala CRNP [address] [place] [address] Stephany Oh Stress Tests El [address] [place] [address] 02/01/2023 10:00 AM EST Telemedicine Gynecology/Obstetrics [facility] [address] [place] [address] Zahra Pearl, CNM [address] [place] [address] 02/21/2023 11:30 AM EST Office Visit Gynecology/Obstetrics [facility] [address] [place] [address] Erendira Mosqueda CRNP [address] [place] [address] Pending Results Name Type Priority Associated Diagnoses Date /Time GROUP B STREP CULTURE/PCR Lab Routine Encounter for supervision of other normal in third trimester 01/09/2023 2:16 PM EST COMPREHENSIVE METABOLIC PANEL Lab Routine Preeclampsia, third trimester 01/09/2023 2:05 PM EST PROTEIN/ CREATININE RATIO, URINE Lab Routine Preeclampsia, third trimester 01/09/2023 2:16 PM EST Scheduled Orders Name Type Priority Associated Diagnoses Orde r Schedule US PREG FOLLOW-UP EACH FETUS Medical Imaging Routine Preeclampsia, third trimester Expected: 01/09/2023, Expires: 02/09/2024 Health Maintenance Due Date Last Done Comments Hepatitis B (1 of 3 - 3-dose series) 1987 COVID-19 Vaccine (#1) 04/27/1988 Depression Screening 06/22/2018 06/22/2017 Diabetes Screening 06/23/2023 06/22/2020, 07/07/2014 TSH 11/19/2023 11/18/2022, 11/04, 09/27/2022, Additional history exists Pap Smear 06/24/2025 06/24/2022, 1204/2018, 07/07/2014, Additional history exists Cervical Cancer Screening [...] Procedure Name Priority Date/Time Associated Diagnosis Comments CBC STAT 01/09/2023 2:05 PM EST Preeclampsia, third trimester URINALYSIS, POINT OF CARE (ENTER/EDIT) Routine 01/09/2023 Preeclampsia, third trimester documented in this encounter Results * CBC (01/09/2023 2:05 PM EST) WBC 6.83 4.00 - 10.80 K/uL 01/09/2023 2:23 PM EST [facility] [place] [facility]10 RBC 4.18 3.85 - 5.15 M/uL 01/09/2023 2:23 PM EST [facility] [place] 57-10 HGB 12.2 12.0 - 15.3 g/dL 01/09/2023 2:23 PM EST [facility] [place] 57-10 HCT 37.0 36.0 - 45.2 % 01/09/2023 2:23 PM EST [facility] [place] 57-10 MCV 88.5 81.5 - 97.5 fL 01/09/2023 2:23 PM EST [facility] [place] 57-10 MCH 29.2 27.0 - 34.0 pg 01/09/2023 2:23 PM EST [facility] [place] 57-10 MCHC 33.0 32.0 - 36.0 g/dL 01/09/2023 2:23 PM EST [facility] [place] 57-10 RDW 14.4 11.5 - 15.5 % 01/09/2023 2:23 PM EST [facility] [place] 57-10 PLT 170 140 - 400 K/uL 01/09/2023 2:23 PM EST [facility] [place] 57-10 MPV 11.3 6.6 - 11.1 fL 01/09/2023 2:23 PM EST [facility] [place] 57-10 Blood Venous blood specimen / Unknown Venipuncture / Unknown 01/09/2023 2:05 PM EST 01/09/2023 2:05 PM EST Jacquelyn Montero PA-C LAB BLOOD ORDERABLES [facility] [facility] [address] [facility] [place] [address] * URINALYSIS, POINT OF CARE (ENTER/EDIT) (01/09/2023) Color, Urine Yellow Yellow or Light Yellow Clarity, Urine Clear Clear Glucose, Urine Negative Negative mg/dL Bilirubin, Urine Negative Negative Ketone, Urine Negative Negative mg/dL Specific [place], Urine 1.025 1.003 - 1.030 Blood, Urine Negative Negative pH, Urine 6.5 5.0 - 7.5 units Protein, Urine 30 Negative mg/dL Urobilinogen, Urine 0.2 0.2 - 1.0 mg/dL Nitrite, Urine Negative Negative Esterase, Urine Negative Negative Urine 01/09/2023 Jacquelyn Montero PA-C LAB POINT OF CARE TE ST ENTER/EDIT ORDERABLES documented in this encounter Visit Diagnoses Diagnosis Preeclampsia, third trimester- Primary Antepartum multigravida of advanced maternal age Hypothyroidism affecting in third trimester Encounter for supervision of other normal in third trimester [Z34.83] documented in this encounter Care Teams Environmental Health Technologist Relationship Specialty Start Date End Date Chelo Louie DO [address] [place] [address] PCP - General Family Medicine 07/02/14 documented as of this encounter"
--- OUTSIDE RECORDS SUMMARY | 2023-01-17 06:48 | External Medical Summary | Summary of Care ---
Author Name Unknown Organization [facility] Address [address] [facility] [place] [address] Phone [phone] Care Team Providers Care Hairspring I Inspector Name Role Phone Chelo Louie DO Primary Care Provider Reason for Visit * Reason Comments Non Stress Test Encounter Details Date Type Department Care Team (Late st Contact Info) Description 01/09/2023 1:30 PM EST Office Visit Gynecology/Obstetric s [facility] [address] [place] [address] Jacquelyn Montero PA-C [address] [place] [address] Preeclampsia, third trimester*; Antepartum multigravida of advanced [...] meds). 34 Tablet 5 06/27/2022 Active Nystatin 341101 UNIT/GM External Cream Apply topically to affected area 2 times a day. Apply to stomach twice a day as needed for rash 30 g 0 09/27/2022 Active Aspirin 81 MG Oral Tablet Delayed Release Take 1 Tablet by mouth in the morning. 100 Tablet 3 12/22/2022 Active Fluticasone Propionate 50 MCG/ACT Nasal Suspension (Flonase) Administer 1 [place] into nostril in the morning. 0 Active [...] be handled at the discretion of the varnish finisher. 5. Recommend follow up ultrasound for growth [...] be handled at the discretion of the varnish finisher. documented as of this encounter (statuses as [...] money to get more. Never true 11/18/2022 [place] Depression Scale Answer Date Recorded [place] Depression Scale Total 0 11/18/2022 The thought [...] Gynecology/Obstetrics [facility] [address] [place] [address] BackerMikala CRNP [address] [place] [address] Stephany Oh Stress Tests El [address] [place] [address] 02/01/2023 10:00 AM EST Telemedicine Gynecology/Obstetrics [facility] [address] [place] [address] Zahra Pearl, CNM [address] [place] [address] 02/21/2023 11:30 AM EST Office Visit Gynecology/Obstetrics [facility] [address] [place] [address] Erendira Mosqueda CRNP [address] [place] [address] Pending Results Name Type Priority Associated Diagnoses Date /Time CBC Lab STAT Preeclampsia, third trimester 01/09/2023 2:05 PM EST COMPREHENSIVE METABOLIC PANEL Lab Routine Preeclampsia, third trimester 01/09/2023 2:05 PM EST Scheduled Orders Name Type Priority Associated Diagnoses Orde r Schedule GROUP B STREP CULTURE/PCR Lab Routine Encounter for supervision of other normal in third trimester Ordered: 01/09/2023 PROTEIN/ CREATININE RATIO, URINE Lab Routine Preeclampsia, third trimester Ordered: 01/09/2023 PREG FOLLOW-UP EACH FETUS Medical Imaging Routine [...] Comments URINALYSIS, POINT OF CARE (ENTER/EDIT) Routine 01/09/2023 Preeclampsia, third trimester documented in this encounter Results * URINALYSIS, POINT OF CARE (ENTER/EDIT) (01/09/2023) Color, Urine Yellow Yellow or Light Yellow Clarity, Urine Clear Clear Glucose, Urine Negative Negative mg/dL Bilirubin, Urine Negative Negative Ketone, Urine Negative Negative mg/dL Specific [place], Urine 1.025 1.003 - 1.030 Blood, Urine [...] [Z34.83] documented in this encounter Care Teams Hairspring I Inspector Relationship Specialty Start Date End Date Chelo Louie DO [address] [place] [address] PCP - General Family Medicine 07/02/14 documented as of this encounter"
--- OUTSIDE RECORDS SUMMARY | 2023-01-17 06:48 | External Medical Summary ---
Author Name Unknown Address Unknown Organization [id number]:[facility] - [address] [place] [address] Laboratory Report Ordering Provider Test Date Status CINDY HANKS 01/05/2023 08:46:45 Final Observation Date Value Abnormality Reference (Units ) Status Albumin 01/05/2023 08:46:45 3.4 Below low normal 3.8-5.0 (g/dL) Final AST (Aspartate aminotransferase) 01/05/2023 08:46:45 17 10-35 (U/L) Final Alk Phos 01/05/2023 08:46:45 130 35-130 (U/L) Final ALT (Alanine aminotransferase) 01/05/2023 08:46:45 11 10-35 (U/L) Final Bilirubin, Total 01/05/2023 08:46:45 0.2 <=1.2 (mg/dL) Final Bilirubin, Direct 01/05/2023 08:46:45 <0.2 0.0-0.3 (mg/dL) Final Protein 01/05/2023 08:46:45 6.1 6.0-8.3 (g/dL) Final Performing Location [facility] 0 - [address] [place] [address]
--- OUTSIDE RECORDS SUMMARY | 2023-01-17 06:48 | External Medical Summary | Summary of Care ---
Author Name Unknown Organization [facility] Address [address] [facility] [address] Phone [phone] Care Team Providers Care Triple Drum Operator Name Role Phone Chelo Louie DO Primary Care Provider Reason for Visit * Reason Comments Outpatient Testing Encounter Details Date Type Department Care Team (Late st Contact Info) Description 01/05/2023 8:50 AM EDT Laboratory Laboratory, [facility] [address] [facility] [place] [phone] [facility] [address] [facility] [place] [id number] Elevated blood pressure affecting in third trimester, antepartum Allergies Active Allergy Reactions Criticality Noted Date Comments Cefaclor Rash 07/11/2013 documented as of this encounter (statuses as of 01/05/2023) Medications Medication Sig Dispensed Refills Start Date End Date Status Vit-Fe Fumarate-FA ( FORMULA) 27-1 MG Tablet 0 Active Levothyroxine Sodium 100 MCG Oral Tablet (Levoxyl) Take 1 Tablet by mouth in the morning. (at least 30 min prior to breakfast or other meds). 34 Tablet 5 06/27/2022 Active Nystatin 824633 UNIT/GM External Cream Apply topically to affected area 2 times a day. Apply to stomach twice a day as needed for rash 30 g 0 09/27/2022 Active Aspirin 81 MG Oral Tablet Delayed Release Take 1 Tablet by mouth in the morning. 100 Tablet 3 12/22/2022 Active Fluticasone Propionate 50 MCG/ACT Nasal Suspension (Flonase) Administer 1 [place] into nostril in the morning. 0 Active Loratadine-Pseudoep hedrine ER 10-240 MG Tablet Extended Release 24 Hour (Claritin-D 24 Hour) Take 1 Tablet by mouth in the morning. 0 Active documented as of this encounter (statuses as of 01/05/2023) Active Problems Problem Noted Date Diagnosed Date Supervision of normal 07/25/2022 Antepartum multigravida of advanced maternal age 0406/24/2022 Overview: Declines genetics Hypothyroidism affecting in third trim ivonne 07/05/2019 Overview: History of valdemar's. TSH each trimester. Increased to 100mcg levothyroxine 06/27/2022, recheck at next visit Refer to MFM if adjust meds after 1st trimester TSH [...] be handled at the discretion of the sorter pricer. 5. Recommend follow up ultrasound for growth in 4-6 weeks Adult BMI 19-24 kg/sq m 08/11/2014 Estimated Date of Delivery Comme nts Yes 02/03/2023 Based on Ultraso und documented as of this encounter (statuses as of 01/05/2023) Resolved Problems Problem Noted Date Diagnosed Date [...] protocol. Pt given VIS(vaccine information sheet) Sonali E Park, JANIE Abnormal glucose tolerance i n mother complicating [...] be handled at the discretion of the sorter pricer. documented as of this encounter (statuses as of 01/05/2023) Immunizations Name Administration Dates Next Due SEASONAL [...] money to buy more. Never true 11/19/19 Within the past 12 months, t he food you bought just didn't last and you didn't have money to get more. Never true 11/18/2022 [place] Depression Scale Answer Date Recorded [place] Depression Scale Total 0 11/18/2022 The thought [...] on file documented as of this encounter Plan of Treatment Upcoming Encounters Date Type Department Care Team (Late st Contact Info) Description 01/06/2023 8:15 AM EDT Office [facility] [address] [place] [address] Erendira Mosqueda CRNP [address] [place] [address] 01/12/2023 9:15 AM EST Office Visit Gynecology/Obstetrics [facility] [address] [place] [address] Mikala Harris CRNP [address] [place] [address] 01/19/2023 10:45 AM EST Office Visit Gynecology/Obstetrics [facility] [address] [place] [address] Erendira Mosqueda CRNP [address] [place] [address] 01/24/2023 10:00 AM EST Office Visit Gynecology/Obstetrics [facility] [address] [place] [address] Erendira Mosqueda CRNP [address] [place] [address] 02/01/2023 9:45 AM EST Office Visit Gynecology/Obstetrics [facility] [address] [place] [address] Erendira Mosqueda CRNP [address] [place] [address] Pending Results Name Type Priority Associated Diagnoses Date /Time BUN Lab Routine Elevated blood pressure affecting in third trimester, antepartum 01/05/2023 8:46 AM EDT URIC ACID Lab Routine Elevated blood pressure affecting in third trimester, antepartum 01/05/2023 8:46 AM EDT HEPATIC FUNCTION PANEL Lab Routine Elevated blood pressure affecting in third trimester, antepartum 01/05/2023 8:46 AM EDT CREATININE Lab Routine Elevated blood pressure affecting in third trimester, antepartum 01/05/2023 8:46 AM EDT PROTEIN/ CREATININE RATIO, URINE Lab Routine Elevated blood pressure affecting in third trimester, antepartum 01/05/2023 8:48 AM EDT Health Maintenance Due Date Last Done Comments [...] Name Priority Date/Time Associated Diagnosis Comments CBC Routine 01/05/2023 8:46 AM EDT Elevated blood pressure affecting in third trimester, antepartum documented in this encounter Results * CBC (01/05/2023 8:46 AM EDT) WBC 7.23 4.00 - 10.80 K/uL 01/05/2023 8:59 AM EDT [facility] [place] [facility]10 RBC 4.28 3.85 - 5.15 M/uL 01/05/2023 8:59 AM EDT [facility] [place] 57-10 HGB 12.4 12.0 - 15.3 g/dL 01/05/2023 8:59 AM EDT [facility] [place] 57-10 HCT 38.1 36.0 - 45.2 % 01/05/2023 8:59 AM EDT [facility] [place] 57-10 MCV 89.0 81.5 - 97.5 fL 01/05/2023 8:59 AM EDT [facility] [place] [facility]10 MCH 29.0 27.0 - 34.0 pg 01/05/2023 8:59 AM EDT [facility] [place] 57[facility]10 MCHC 32.5 32.0 - 36.0 g/dL 01/05/2023 8:59 AM EDT [facility] [place] 57[facility]10 RDW 14.3 11.5 - 15.5 % 01/05/2023 8:59 AM EDT [facility] [place] 57[facility]10 PLT 186 140 - 400 K/uL 01/05/2023 8:59 AM EDT [facility] [place] [facility]10 MPV 11.4 6.6 - 11.1 fL 01/05/2023 8:59 AM EDT [facility] [place] 57[facility]10 Blood Venous blood specimen / Unknown Venipuncture / Unknown 01/05/2023 8:46 AM EDT 01/05/2023 8:46 AM EDT Erendira L McHail SALES EXPERT LAB BLOOD ORDERABLES [facility] [place] [facility] [facility] [place] [address] documented in this encounter Visit Diagnoses Diagnosis Elevated blood pressure affecting in third trimester, antepartum documented in this encounter Care Teams Triple Drum Operator Relationship Specialty Start Date End Date Chelo Louie DO [facility] [address] [place] [address] PCP - General Family Medicine 07/02/14 documented as of this encounter
--- OUTSIDE RECORDS SUMMARY | 2023-01-17 06:48 | External Medical Summary ---
Author Name Unknown Address Unknown Organization K01:[facility]ATORY [facility] - [facility] [address] [facility] [address] Laboratory Report Ordering Provider Test Date Status [id number] 01/09/2023 14:16:52 Final Observation Date Value Abnormality Reference (Units ) Status Streptococcus agalactiae DNA [Presence] in Specimen by KAILA with probe detection 01/09/2023 14:16:52 Negative Negative Final No Group B Streptococcus det ected by culture-enhanced PCR (amplified probe).
The collection of vaginal/rectal swab specimen combinations (FDA approved specimen type) is optimal for the detection of Group B Streptococcus. Single source collection (vaginal only or rectal only) or alternate specimen sources may lead to false negative results. Performing Location LAB[facility]ATORY [facility] - [address] [facility] [address]
--- OUTSIDE RECORDS SUMMARY | 2023-01-17 06:48 | External Medical Summary | Summary of Care ---
Author Name Unknown Organization [facility] Address [address] [facility] [facility] [place] [facility] [place] [address] Phone [phone] Care Team Providers Care Assembler Bicycle Name Role Phone Chelo Louie DO Primary Care Provider Reason for Visit * Reason Comments Return Visit Encounter Details Date Type Department Care Team (Late st Contact Info) Description 01/05/2023 8:15 AM EDT Office Visit Gynecology/Obstetric s [facility] [address] [place] [address] Erendira Mosqueda CRNP [address] [place] [address] Antepartum multigravida of advanced maternal age*; Hypothyroidism affecting in third trimester; Encounter for supervision of other normal in third trimester; Elevated blood pressure affecting in third trimester, [...] meds). 34 Tablet 5 06/27/2022 Active Nystatin 901210 UNIT/GM External Cream Apply topically to affected area 2 times a day. Apply to stomach twice a day as needed for rash 30 g 0 09/27/2022 Active Aspirin 81 MG Oral Tablet Delayed Release Take 1 Tablet by mouth in the morning. 100 Tablet 3 12/22/2022 Active Fluticasone Propionate 50 MCG/ACT Nasal Suspension (Flonase) Administer 1 [place] into nostril in the morning. 0 Active [...] be handled at the discretion of the director of product management. 5. Recommend follow up ultrasound for growth [...] Patient received flu vaccine elsewhere. 12/12/2016 Carmita kAbar, JANIE Would like TDAP next visit. 12/26/2016 Tdap [...] be handled at the discretion of the director of product management. documented as of this encounter (statuses as [...] money to get more. Never true 11/18/2022 [place] Depression Scale Answer Date Recorded [place] Depression Scale Total 0 11/18/2022 The thought [...] Sign Reading Time Taken Comments Blood Pressure 144/92 01/05/2023 8:07 AM EDT Pulse - - Temperature - - Respiratory Rate - - Oxygen Saturation - - Inhaled Oxygen Concentration - - Weight 78.4 kg (172 lb 12.8 oz) 01/05/2023 8:07 AM EDT Height 152.4 cm (5') 01/05/2023 8:07 AM EDT Body Mass Index 33.75 01/05/2023 8:07 AM EDT documented in this encounter Progress Notes * Erendira Mosqueda CRNP - 01/05/2023 8:35 AM EDT 35w6d Elevated BP today, first elevated reading. She denies headaches, visual changes, RUQ pain. +2 proteinuria on dip. Will obtain preeclamptic labs and protein/creatinine ratio today. Return tomorrow forrecheck. Aware she likely will need 37w IOL if tomorrow's reading is elevated. Baby is moving well. She denies contractions, bleeding, or LOF. SRIRAM Ngo * Farida Weinberg LPN - 01/05/2023 8:13 AM EDT 35w6d Pt has elevated BP denies MALCOLM, blurry vision, RUQ pain, abnormal swelling. Pt denies any concerns. documented in this encounter Plan of Treatment Upcoming Encounters Date Type Department Care Team (Late st Contact Info) Description 01/06/2023 8:15 AM EDT Office Visit Gynecology/Obstetrics [facility] [address] [place] [address] Erendira Mosqueda CRNP [address] [place] [address] 01/12/2023 9:15 AM EST Office Visit Gynecology/Obstetrics [facility] [address] [place] [address] Mikala Harris CRNP [address] [place] [address] 01/19/2023 10:45 AM EST Office Visit Gynecology/Obstetrics [facility] [address] [place] [address] Erendira Mosqueda CRNP [address] [place] [address] 01/24/2023 10:00 AM EST Office Visit Gynecology/Obstetrics [facility] [address] [place] [address] Erendira Mosqueda CRNP [address] [place], [place] [address] 02/01/2023 9:45 AM EST Office Visit Gynecology/Obstetrics [facility] [address] [place], [place] [address] Erendira Mosqueda CRNP [address] [place] [address] Pending Results Name Type Priority Associated Diagnoses [...] third trimester, antepartum 01/05/2023 8:46 AM EDT CBC Lab Routine Elevated blood pressure affecting in third trimester, antepartum 01/05/2023 8:46 AM EDT PROTEIN/ CREATININE RATIO, URINE Lab Routine Elevated blood pressure affecting in third trimester, antepartum 01/05/2023 8:48 AM EDT Scheduled Orders Name Type Priority Associated Diagnoses Orde r Schedule BUN Lab Routine Elevated blood pressure affecting in third trimester, antepartum Expected: 01/06/2023 (Approximate), Expires: 01/06/2024 URIC ACID Lab Routine Elevated blood pressure affecting in third trimester, antepartum Expected: 01/06/2023 (Approximate), Expires: 01/06/2024 HEPATIC FUNCTION PANEL Lab Routine Elevated blood pressure affecting in third trimester, antepartum Expected: 01/06/2023 (Approximate), Expires: 01/06/2024 CREATININE Lab Routine Elevated blood pressure affecting in third trimester, antepartum Expected: 01/06/2023 (Approximate), Expires: 01/06/2024 CBC Lab Routine Elevated blood pressure affecting in third trimester, antepartum Expected: 01/06/2023 (Approximate), Expires: 01/06/2024 PROTEIN/ CREATININE RATIO, URINE Lab Routine Elevated blood pressure affecting in third trimester, antepartum Expected: 01/05/2023 (Approximate), Expires: 01/06/2024 Health Maintenance Due Date Last Done Comments [...] Comments URINALYSIS, POINT OF CARE (ENTER/EDIT) Routine 01/05/2023 Elevated blood pressure affecting in third trimester, antepartum documented in this encounter Results * URINALYSIS, POINT OF CARE (ENTER/EDIT) (01/05/2023) Color, Urine Yellow Yellow or Light Yellow Clarity, Urine Clear Clear Glucose, Urine Negative Negative mg/dL Bilirubin, Urine Negative Negative Ketone, Urine Negative Negative mg/dL Specific [place], Urine 1.030 1.003 - 1.030 Blood, Urine Negative Negative pH, Urine 6.5 5.0 - 7.5 units Protein, Urine 100 Negative mg/dL Urobilinogen, Urine 0.2 0.2 - 1.0 mg/dL Nitrite, Urine Negative Negative Esterase, Urine Negative Negative Urine 01/05/2023 Erendira BHATIA LAB POINT OF CARE TE ST ENTER/EDIT ORDERABLES documented in this encounter Visit Diagnoses Diagnosis Antepartum multigravida of advanced maternal age- Primary Hypothyroidism affecting in third trimester Encounter for supervision of other normal in third trimester Elevated blood pressure affecting in third trimester, antepartum documented in this encounter Care Teams Assembler Bicycle Relationship Specialty Start Date End Date Chelo Louie DO [address] [place] [address] PCP - General Family Medicine 07/02/14 documented as of this encounter
--- OUTSIDE RECORDS SUMMARY | 2023-01-17 06:48 | External Medical Summary ---
Author Name Unknown Address Unknown Organization [id number]:LABORATORY [place] [address] - [address] [place] [address] Laboratory Report Ordering Provider Test Date Status CINDY HANKS 01/05/2023 08:46:45 Final Observation Date Value Abnormality Reference (Units ) Status WBC, Total 01/05/2023 08:46:45 7.23 4.00-10.8 0 (K/uL) Final RBC 01/05/2023 08:46:45 4.28 3.85-5.15 (M/uL) Final Hemoglobin 01/05/2023 08:46:45 12.4 12.0-15.3 (g/dL) Final HCT 01/05/2023 08:46:45 38.1 36.0-45.2 (%) Final MCV 01/05/2023 08:46:45 89.0 81.5-97.5 (fL) Final MCH 01/05/2023 08:46:45 29.0 27.0-34.0 (pg) Final MCHC 01/05/2023 08:46:45 32.5 32.0-36.0 (g/dL) Final RDW 01/05/2023 08:46:45 14.3 11.5-15.5 (%) Final Platelets 01/05/2023 08:46:45 186 140-400 (K /uL) Final MPV 01/05/2023 08:46:45 11.4 6.6-11.1 ( fL) Final Performing Location LABORATORY [facility] [place] [address] - [address] [place] [address]
--- OUTSIDE RECORDS SUMMARY | 2023-01-17 06:48 | External Medical Summary ---
Author Name Unknown Address Unknown Organization [id number]:LABORATORY [facility] [place] [address] - [address] [place] [address] Laboratory Report Ordering Provider Test Date Status CINDY HANKS 01/05/2023 08:46:45 Final Observation Date Value Abnormality Reference (Units ) Status BUN 01/05/2023 08:46:45 10 6-20 (mg/d L) Final Performing [facility] - [address] [place] [address]
--- OUTSIDE RECORDS SUMMARY | 2023-01-17 06:48 | External Medical Summary ---
Author Name Unknown Address Unknown Organization [id number]:[facility] [place] [address] - [address] [place] [address] Laboratory Report Ordering Provider Test Date Status FER VERA 01/09/2023 14:05:08 Final Observation Date Value Abnormality Reference (Units ) Status WBC, Total 01/09/2023 14:05:08 6.83 4.00-10.8 0 (K/uL) Final RBC 01/09/2023 14:05:08 4.18 3.85-5.15 (M/uL) Final Hemoglobin 01/09/2023 14:05:08 12.2 12.0-15.3 (g/dL) Final HCT 01/09/2023 14:05:08 37.0 36.0-45.2 (%) Final MCV 01/09/2023 14:05:08 88.5 81.5-97.5 (fL) Final MCH 01/09/2023 14:05:08 29.2 27.0-34.0 (pg) Final MCHC 01/09/2023 14:05:08 33.0 32.0-36.0 (g/dL) Final RDW 01/09/2023 14:05:08 14.4 11.5-15.5 (%) Final Platelets 01/09/2023 14:05:08 170 140-400 (K /uL) Final MPV 01/09/2023 14:05:08 11.3 6.6-11.1 ( fL) Final Performing Location LABORATORY [facility] [place] 57[address] 0 - [address] [place] [address]
--- OUTSIDE RECORDS SUMMARY | 2023-01-17 06:48 | External Medical Summary ---
Author Name Unknown Address Unknown Organization K0G:LAB[facility]ATORY [place] [address] - [address] [place] [address] Laboratory Report Ordering Provider Test Date Status FER VERA 01/09/2023 14:05:08 Final Observation Date Value Abnormality Reference (Units ) Status BUN 01/09/2023 14:05:08 10 6-20 (mg/dL) Final Creatinine 01/09/2023 14:05:08 0.7 0.5-1.0 (mg/dL) Final Glomerular filtration rate/1.73 sq M.predicted [Volume Rate/Area] in Serum, Plasma or Blood by Creatinine-based formula (CKD-EPI) 01/09/2023 14:05:08 >90 >=60 (mL/min) Final eGFR is calculated based on the CKD-EPI 2020 equation SODIUM 01/09/2023 14:05:08 136 135-146 (m mol/L) Final Potassium 01/09/2023 14:05:08 4.2 3.5-5.1 (m mol/L) Final Cl 01/09/2023 14:05:08 102 98-107 (mm ol/L) Final CO2 01/09/2023 14:05:08 21 Below low normal 22- 32 (mmol/L) Final Anion gap 01/09/2023 14:05:08 13 7-15 (mmol /L) Final Glucose 01/09/2023 14:05:08 105 70-120 (mg /dL) Final Albumin 01/09/2023 14:05:08 3.2 Below low normal 3.8 -5.0 (g/dL) Final AST (Aspartate aminotransferase) 01/09/2023 14:05:08 15 10-35 (U/L) Fin al Alk Phos 01/09/2023 14:05:08 128 35-130 (U/ L) Final Bilirubin, Total 01/09/2023 14:05:08 <0.2 <=1 .2 (mg/dL) Final Calcium 01/09/2023 14:05:08 8.8 8.4-10.2 ( mg/dL) Final Protein 01/09/2023 14:05:08 5.8 Below low normal 6.0 -8.3 (g/dL) Final ALT (Alanine aminotransferase) 01/09/2023 14:05:08 10 10-35 (U/L) Renato de la paz Performing Location LABORATORY [place] [address] - [address] [facility] [address]
--- OUTSIDE RECORDS SUMMARY | 2023-01-17 06:48 | External Medical Summary | Summary of Care ---
Author Name Unknown Organization [facility] Address [address] [place] [address] Phone [phone] Care Team Providers Care Miter Grinder Operator Name Role Phone Chelo Louie DO Primary Care Provider Encounter Details Date Type Department Care Team (Late st Contact Info) Description 01/09/2023 Telephone Gynecology/Obstetrics [facility] [address] [place] [address] Reta Worthington MD [address] [place] [address] Allergies Active Allergy Reactions Criticality Noted Date [...] meds). 34 Tablet 5 06/27/2022 Active Nystatin 720597 UNIT/GM External Cream Apply topically to affected area 2 times a day. Apply to stomach twice a day as needed for rash 30 g 0 09/27/2022 Active Aspirin 81 MG Oral Tablet Delayed Release Take 1 Tablet by mouth in the morning. 100 Tablet 3 12/22/2022 Active Fluticasone Propionate 50 MCG/ACT Nasal Suspension (Flonase) Administer 1 [place] into nostril in the morning. 0 Active [...] be handled at the discretion of the freight broker. 5. Recommend follow up ultrasound for growth [...] to 6 weeks. Subchorionic hemorrhage of p [place] in first trimester 02/05/2019 10/17/2019 Overview: 02/05/19 [...] be handled at the discretion of the freight broker. documented as of this encounter (statuses as [...] money to get more. Never true 11/18/2022 [place] Depression Scale Answer Date Recorded [place] Depression Scale Total 0 11/18/2022 The thought [...] encounter Miscellaneous Notes * Telephone Encounter - Sonali Drew RN - 01/09/2023 9:[address] Worthington, L&D is full and they would like to do her NST/ BP and labs here at the office instead. Jacquelyn is aware and will reach out to Dr. Worthington when pt is here. Pt is aware and agreeable. documented in this encounter Plan of Treatment Upcoming Encounters Date Type Department Care Team (Late st Contact Info) Description 01/09/2023 1:30 PM EST Office Visit Gynecology/Obstetrics [facility] [address] [place] [address] Jacquelyn Montero PA-C [address] [place] [address] 02/01/2023 10:00 AM EST Telemedicine Gynecology/Obstetrics [facility] [address] [facility] [place] [address] Zahra Pearl, [facility] [address] [place] [address] 02/21/2023 11:30 AM EST Office Visit Gynecology/Obstetrics [facility] [address] [place] [address] Erendira Mosqueda CRNP [address] [place] [address] Health Maintenance Due Date Last Done Comments Hepatitis B (1 of 3 - 3-dose series) 1985 COVID-19 Vaccine (#1) 04/27/1988 Depression Screening 06/22/2018 06/22/2017 Diabetes Screening 06/23/2023 06/22/2020, 07/07/2014 TSH 11/19/2023 11/18/2022, 11/04, 09/27/2022, Additional history exists Pap Smear 06/24/2025 06/24/2022, 12/04/2018, 07/07/2014, Additional history exists Cervical Cancer Screening [...] filedocumented as of this encounter Care Teams Miter Grinder Operator Relationship Specialty Start Date End Date Chelo Louie DO [address] [place] [address] PCP - General Family Medicine 07/02/14 documented as of this encounter
--- OUTSIDE RECORDS SUMMARY | 2023-01-17 06:48 | External Medical Summary ---
Author Name Unknown Address Unknown Organization [facility] - [address] [place] [address] Laboratory Report Ordering Provider Test Date Status CINDY HANKS 01/05/2023 08:46:45 Final Observation Date Value Abnormality Reference (Units ) Status Creatinine 01/05/2023 08:46:45 0.6 0.5-1.0 (mg/dL) Final Glomerular filtration rate/1.73 sq M.predicted [Volume Rate/Area] in Serum, Plasma or Blood by Creatinine-based formula (CKD-EPI) 01/05/2023 08:46:45 >90 >=60 (mL/min) Final eGFR is calculated based on the CKD-EPI 2020 equation Per[facility] [facility] - [address] [place] [address]
--- OUTSIDE RECORDS SUMMARY | 2023-01-17 06:48 | External Medical Summary ---
Author Name Unknown Address Unknown Organization K01:LABORATORY [facility] - [address] [place] [address] Laboratory Report Ordering Provider Test Date Status FER VERA 01/09/2023 14:16:52 Final Normal: <150 mg/ g creatinine
High: 150-500 mg/g creatinine
Very High: >500 mg/g creatinine
Nephrotic: >3000 mg/g creatinine Observation Date Value Abnormality Reference (Units ) Status Protein/Creatinine [Ratio] in Urine 01/09/2023 14:16:52 896 Above high normal <150 (mg/g ) Final Protein, Urine 01/09/2023 14:16:52 43 (mg/dL) Final Creatinine, Urine 01/09/2023 14:16:52 48 (mg/dL) Final Performing Location LABORATORY [facility] - [address] [place] [address]
--- OUTSIDE RECORDS SUMMARY | 2023-01-17 06:48 | External Medical Summary ---
Author Name Unknown Address Unknown Organization K01:LABORATORY [facility] - [address] [place] [address] Laboratory Report Ordering Provider Test Date Status CINDY HANKS 01/05/2023 08:48:59 Final Normal: <150 mg/ g creatinine
High: 150-500 mg/g creatinine
Very High: >500 mg/g creatinine
Nephrotic: >3000 mg/g creatinine Observation Date Value Abnormality Reference (Units ) Status Protein/Creatinine [Ratio] in Urine 01/05/2023 08:48:59 910 Above high normal <150 (mg/g ) Final Protein, Urine 01/05/2023 08:48:59 101 (mg/dL) Final Creatinine, Urine 01/05/2023 08:48:59 111 (mg/dL) Final Performing Location LABORATORY [facility] - [address] [place] [address]
--- OUTSIDE RECORDS SUMMARY | 2023-01-17 06:48 | External Medical Summary | Summary of Care ---
Author Name Unknown Organization [facility] Address [address] [facility] [address] Phone [phone] Care Team Providers Care Access Manager Name Role Phone Chelo Louie DO Primary Care Provider Reason for Visit * Reason Comments Outpatient Testing Encounter Details Date Type Department Care Team (Late st Contact Info) Description 01/09/2023 2:10 PM EST Laboratory Laboratory, [facility] [address] [facility] [phone] [facility] [address] [place] [address] Arrived Allergies Active Allergy Reactions Criticality Noted Date [...] meds). 34 Tablet 5 06/27/2022 Active Nystatin 947320 UNIT/GM External Cream Apply topically to affected area 2 times a day. Apply to stomach twice a day as needed for rash 30 g 0 09/27/2022 Active Aspirin 81 MG Oral Tablet Delayed Release Take 1 Tablet by mouth in the morning. 100 Tablet 3 12/22/2022 Active Fluticasone Propionate 50 MCG/ACT Nasal Suspension (Flonase) Administer 1 [place] into nostril in the morning. 0 Active [...] be handled at the discretion of the factory machine computer operator. 5. Recommend follow up ultrasound for growth [...] Patient received flu vaccine elsewhere. 12/12/2016 Carmita Akbar, JANIE Would like TDAP next visit. 12/26/2016 [...] be handled at the discretion of the factory machine computer operator. documented as of this encounter (statuses as [...] money to get more. Never true 11/18/2022 [place] Depression Scale Answer Date Recorded [place] Depression Scale Total 0 11/18/2022 The thought [...] EST Office Visit Gynecology/Obstetrics [facility] [address] [place] [address] Mikala Harris CRNP [address] [place] [address] [place], Non Stress Tests [place] [address] [place] [address] 02/01/2023 10:00 AM EST Telemedicine Gynecology/Obstetrics [facility] [address] [place] [address] Zahra Pearl, [facility] [address] [place] [address] 02/21/2023 11:30 AM EST Office Visit Gynecology/Obstetrics [facility] [address] [place] [address] Erendira Mosqueda CRNP [address] [place] [address] Health Maintenance Due Date Last Done Comments [...] filedocumented as of this encounter Care Teams Access Manager Relationship Specialty Start Date End Date Chelo Louie DO [address] [place] [address] PCP - General Family Medicine 07/02/14 documented as of this encounter
--- OUTSIDE RECORDS SUMMARY | 2023-01-17 06:48 | External Medical Summary | Summary of Care ---
Author Name Unknown Organization [facility] Address [address] [facility] [place] [address] Phone [phone] Care Team Providers Care Inspector Government Property Name Role Phone Chelo Louie DO Primary Care Provider Reason for Visit * Reason Comments Return Visit Non Stress Test Encounter Details Date Type Department Care Team (Late st Contact Info) Description 01/06/2023 8:15 AM EDT Office Visit Gynecology/Obstetric s [facility] [address] [place] [address] Erendira Mosqueda CRNP [address] [place] [address] Pre-eclampsia in third trimester*; Antepartum multigravida of advanced maternal age; Hypothyroidism affecting in third trimester Allergies Active Allergy Reactions Criticality Noted Date Comments Cefaclor Rash 07/11/2013 documented as of this encounter (statuses as of 01/06/2023) Medications Medication Sig Dispensed Refills Start Date End Date Status Vit-Fe Fumarate-FA ( FORMULA) 27-1 MG Tablet 0 Active Levothyroxine Sodium 100 MCG Oral Tablet (Levoxyl) Take 1 Tablet by mouth in the morning. (at least 30 min prior to breakfast or other meds). 34 Tablet 5 06/27/2022 Active Nystatin 455710 UNIT/GM External Cream Apply topically to affected area 2 times a day. Apply to stomach twice a day as needed for rash 30 g 0 09/27/2022 Active Aspirin 81 MG Oral Tablet Delayed Release Take 1 Tablet by mouth in the morning. 100 Tablet 3 12/22/2022 Active Fluticasone Propionate 50 MCG/ACT Nasal Suspension (Flonase) Administer 1 [place] into nostril in the morning. 0 Active Loratadine-Pseudoep hedrine ER 10-240 MG Tablet Extended Release 24 Hour (Claritin-D 24 Hour) Take 1 Tablet by mouth in the morning. 0 Active documented as of this encounter (statuses as of 01/06/2023) Active Problems Problem Noted Date Diagnosed Date [...] be handled at the discretion of the psychiatric arnp. 5. Recommend follow up ultrasound for growth in 4-6 weeks Adult BMI 19-24 kg/sq m 08/11/2014 Estimated Date of Delivery Comme nts Yes 02/03/2023 Based on Ultraso und documented as of this encounter (statuses as of 01/06/2023) Resolved Problems Problem Noted Date Diagnosed Date [...] left inferior to the gestational sac. - Jdu Thorpe CNM INFORMATION 12/12/2016 02/12/2017 Overview: Patient [...] be handled at the discretion of the psychiatric arnp. documented as of this encounter (statuses as of 01/06/2023) Immunizations Name Administration Dates Next Due SEASONAL [...] money to get more. Never true 11/18/2022 [place] Depression Scale Answer Date Recorded [place] Depression Scale Total 0 11/18/2022 The thought [...] Reading Time Taken Comments Blood Pressure 150/90 01/06/2023 8:20 AM EDT Pulse - - Temperature - - Respiratory Rate - - Oxygen Saturation - - Inhaled Oxygen Concentration - - Weight 78 kg (172 lb) 01/06/2023 8:20 AM EDT Height 152.4 cm (5') 01/06/2023 8:20 AM EDT Body Mass Index 33.59 01/06/2023 8:20 AM EDT documented in this encounter Progress Notes * Erendira Mosqueda CRNP - 01/06/2023 9:28 AM EDT 36w Pt presents as follow up from yesterday. Elevated BP yesterday. +2 proteinuria in office. Protein/creatinine ratio 910 yesterday. CBC, LFTs, creatinine WNL. Today BP elevated again, still +2 proteinuria. Diagnostic for preeclampsia, recommend IOL at 37w. [facility] nursing staff states no beds available for induction until 01/17, when pt will be 37w4d. Call to Dr. Belcher. He is requesting IOL this Monday, 01/09. He is aware of pt's gestational age. Working with hospital and this office to accommodate this pt on Monday. Date for IOL confirmed with and [facility] before hanging up with Simi. Reviewed warning signs with pt: headaches, visual changes, RUQ pain, rapid change in edema, chest pain, SOB. To call with any symptoms, pt has number. Will check BP at home as well. ASSESSMENT assessment with Non-stress Test completed on 01/06/2023 at 36weeks gestation for indication ofpre-eclampsia heart baseline: 130 bpm Variability: Moderate Decelerations: absent Accelerations: present Contractions: None NST start time: 0812 NST stop time: 0834 NST strip reviewed, interpreted, and approved by OB provider, SRIRAM Ngo . NST strip stored in clinic storage file documented in this encounter Plan of Treatment Upcoming Encounters Date Type Department Care Team (Late st Contact Info) Description 02/01/2023 10:00 AM EST Telemedicine Gynecology/Obstetrics [facility] [place] [address] Zahra Pearl, [place] [address] [place] [address] Wilfred [place] [address] 02/21/2023 11:30 AM EST Office Visit Gynecology/Obstetrics [facility]ara Oh [address] [place] [address] Erendira Mosqueda CRNP [address] [place] [address] Health Maintenance Due Date Last Done Comments Hepatitis B (1 of 3 - 3-dose series) 1985 COVID-19 Vaccine (#1) 04/27/1988 Depression Screening 06/22/2018 06/22/2017 Diabetes Screening 06/23/2023 06/22/2020, 07/07/2014 TSH 11/19/2023 11/18/2022, 11/04, 09/27/2022, Additional history exists Pap Smear 06/24/2025 06/24/2022, 04/2018, 07/07/2014, Additional history exists Cervical Cancer [...] Comments URINALYSIS, POINT OF CARE (ENTER/EDIT) Routine 01/06/2023 Pre-eclampsia in third trimester documented in this encounter Results * URINALYSIS, POINT OF CARE (ENTER/EDIT) (01/06/2023) Color, Urine Yellow Yellow or Light Yellow Clarity, Urine Clear Clear Glucose, Urine Negative Negative mg/dL Bilirubin, Urine Negative Negative Ketone, Urine Negative Negative mg/dL Specific [place], Urine 1.025 1.003 - 1.030 Blood, Urine Negative Negative pH, Urine 7.0 5.0 - 7.5 units Protein, Urine 100 Negative mg/dL Urobilinogen, Urine 0.2 0.2 - 1.0 mg/dL Nitrite, Urine Negative Negative Esterase, Urine Negative Negative Urine 01/06/2023 Erendira BHATIA [facility] POINT OF CARE TE ST ENTER/EDIT ORDERABLES documented in this encounter Visit Diagnoses Diagnosis Pre-eclampsia in third trimester- Primary Mild or unspecified pre-eclampsia, antepartum Antepartum multigravida of advanced maternal age Hypothyroidism affecting in third trimester documented in this encounter Care Teams Inspector Government Property Relationship Specialty Start Date End Date Chelo Louie DO [address] [place] [address] PCP - General Family Medicine 07/02/14 documented as of this encounter
--- OUTSIDE RECORDS SUMMARY | 2023-01-17 06:48 | External Medical Summary | Summary of Care ---
Author Name Unknown Organization [facility] Address [address] [place] [address] Phone [phone] Care Team Providers Care Sawing And Assembly Supervisor Name Role Phone Chelo Louie DO Primary Care Provider Encounter Details Date Type Department Care Team (Late st Contact Info) Description 01/06/2023 Telephone Gynecology/Obstetrics [facility] [address] [place] [address] eRta Worthington MD [address] [place] [address] Allergies Active Allergy Reactions Criticality [...] meds). 34 Tablet 5 06/27/2022 Active Nystatin 035728 UNIT/GM External Cream Apply topically to affected area 2 times a day. Apply to stomach twice a day as needed for rash 30 g 0 09/27/2022 Active Aspirin 81 MG Oral Tablet Delayed Release Take 1 Tablet by mouth in the morning. 100 Tablet 3 12/22/2022 Active Fluticasone Propionate 50 MCG/ACT Nasal Suspension (Flonase) Administer 1 [place] into nostril in the morning. 0 Active [...] be handled at the discretion of the summer associate. 5. Recommend follow up ultrasound for growth [...] be handled at the discretion of the summer associate. documented as of this encounter (statuses as [...] money to get more. Never true 11/18/2022 [place] Depression Scale Answer Date Recorded [place] Depression Scale Total 0 11/18/2022 The thought [...] Telephone Encounter - Sonali Drew RN - 01/06/2023 5:15 PM EDT I received a phone call from DR Worthington who asked if we could switch pt's induction to Monday by moving a patient around. I was able to do this Dr. Worthington still would like to see pt at [facility] on Monday for NST/labs but if stable will induce on Monday instead. I spoke with Juani at L&D and she is fine with this [facility] in case we would need to keep her.Advised Juani that this is fine. Spoke with pt and she is aware and agreeable. Dr. Worthington aware. documented in this encounter Plan of Treatment Upcoming Encounters Date Type Department Care Team (Late st Contact Info) Description 02/01/2023 10:00 AM EST Telemedicine Gynecology/Obstetrics [facility] [address] [facility] [place] [address] Zahra Pearl, CN [address] [facility] [place] [address] 02/21/2023 11:30 AM EST Office Visit Gynecology/Obstetrics [facility] [address] [place] [address] Erendira Mosqueda CRNP [address] [place] [address] Health Maintenance Due Date Last Done Comments [...] filedocumented as of this encounter Care Teams Sawing And Assembly Supervisor Relationship Specialty Start Date End Date Chelo Louie DO [facility] [address] [address] PCP - General Family Medicine 07/02/14 documented as of this encounter
--- OUTSIDE RECORDS SUMMARY | 2023-01-17 06:48 | External Medical Summary | Summary of Care ---
Author Name Unknown Organization [facility] Address [address] [facility] [place] [address] Phone [phone] Care Team Providers Care Tube Turner Name Role Phone Chelo Louie DO Primary Care Provider Reason for Visit * Reason Comments Return Visit Non Stress Test Encounter Details Date Type Department Care Team (Late st Contact Info) Description 01/06/2023 8:15 AM EDT Office Visit Gynecology/Obstetric s [facility] Oh [address] [place] [address] Erendira Mosqueda CRNP [address] [place] [address] Pre-eclampsia in third trimester*; Antepartum multigravida of [...] meds). 34 Tablet 5 06/27/2022 Active Nystatin 717044 UNIT/GM External Cream Apply topically to affected area 2 times a day. Apply to stomach twice a day as needed for rash 30 g 0 09/27/2022 Active Aspirin 81 MG Oral Tablet Delayed Release Take 1 Tablet by mouth in the morning. 100 Tablet 3 12/22/2022 Active Fluticasone Propionate 50 MCG/ACT Nasal Suspension (Flonase) Administer 1 [place] into nostril in the morning. 0 Active [...] be handled at the discretion of the slubber machine operator. 5. Recommend follow up ultrasound for [...] be handled at the discretion of the slubber machine operator. documented as of this encounter (statuses [...] money to get more. Never true 11/18/2022 [place] Depression Scale Answer Date Recorded [place] Depression Scale Total 0 11/18/2022 The thought [...] Diagnostic for preeclampsia, recommend IOL at 37w. [facility] nursing staff states no beds available for induction until 01/17, when pt will be 37w4d. Call to Dr. Belcher. He is requesting IOL this Monday, 01/09. He is aware of pt's gestational age. Working with hospital and this office to accommodate this pt on Monday. Date for IOL confirmed with and [facility] before hanging up with Simi. Reviewed warning [...] EST Telemedicine Gynecology/Obstetrics [facility] [place] [place] [address] Zahra Pearl, [place] [address] [place] [place] [address] Wilfred [place] [address] 02/21/2023 11:30 AM EST Office Visit Gynecology/Obstetrics [facility] Oh [address] [place] [address] Erendira Mosqueda CRNP [address] [place] [address] Health Maintenance Due Date Last Done Comments [...] Negative Ketone, Urine Negative Negative mg/dL Specific [place], Urine 1.025 1.003 - 1.030 Blood, Urine [...] trimester documented in this encounter Care Teams Tube Turner Relationship Specialty Start Date End Date Chelo Loiue DO [address] [place] [address] PCP - General Family Medicine 07/02/14 documented as of this encounter
--- OUTSIDE RECORDS SUMMARY | 2023-01-17 06:48 | External Medical Summary | Summary of Care ---
Author Name Unknown Organization [facility] Address [address] [facility] [place] [address] Phone [phone] Care Team Providers Care Computer Lab Para Professional Name Role Phone Chelo Louie DO Primary Care Provider Reason for Visit * Reason Comments Non Stress Test Encounter Details Date Type Department Care Team (Late st Contact Info) Description 01/09/2023 1:30 PM EST Office Visit Gynecology/Obstetric s [facility] Oh [address] [place] [address] Jacquelyn Montero PA-C [address] [place] [address] Preeclampsia, third trimester*; Antepartum multigravida of advanced [...] meds). 34 Tablet 5 06/27/2022 Active Nystatin 079004 UNIT/GM External Cream Apply topically to affected area 2 times a day. Apply to stomach twice a day as needed for rash 30 g 0 09/27/2022 Active Aspirin 81 MG Oral Tablet Delayed Release Take 1 Tablet by mouth in the morning. 100 Tablet 3 12/22/2022 Active Fluticasone Propionate 50 MCG/ACT Nasal Suspension (Flonase) Administer 1 [place] into nostril in the morning. 0 Active [...] be handled at the discretion of the occupational therapy assistant. 5. Recommend follow up ultrasound for growth [...] be handled at the discretion of the occupational therapy assistant. documented as of this encounter (statuses as [...] money to get more. Never true 11/18/2022 [place] Depression Scale Answer Date Recorded [place] Depression Scale Total 0 11/18/2022 The thought [...] Gynecology/Obstetrics [facility] Oh [address] [place] [address] BackerMikala CRNP [address] [place] [address] Stephany Oh Stress Tests [facility] [address] [place] [address] 02/01/2023 10:00 AM EST Telemedicine Gynecology/Obstetrics [facility] Oh [address] [place] [address] Zahra Pearl, CNM [address] [place] [address] 02/21/2023 11:30 AM EST Office Visit Gynecology/Obstetrics [facility] [address] [place] [address] Erendira Mosqueda CRNP [address] [place] [address] Pending Results Name Type Priority Associated Diagnoses Date /Time GROUP B STREP CULTURE/PCR Lab Routine Encounter for supervision of other normal in third trimester 01/09/2023 2:16 PM EST CBC Lab STAT Preeclampsia, third trimester 01/09/2023 [...] Negative Ketone, Urine Negative Negative mg/dL Specific [place], Urine 1.025 1.003 - 1.030 Blood, Urine [...] [Z34.83] documented in this encounter Care Teams Computer Lab Para Professional Relationship Specialty Start Date End Date Chelo Louie DO [address] [place] [address] PCP - General Family Medicine 07/02/14 documented as of this encounter"
--- OUTSIDE RECORDS SUMMARY | 2023-01-17 06:49 | External Medical Summary ---
Author Name Unknown Address Unknown Organization K01:[facility] [place] [address] [place] [facility] [place] [address] Laboratory Report Ordering Provider Test Date Status CINDY HANKS 11/18/2022 14:50:32 Final Observation Date Value Abnormality Reference (Units ) Status SYNC LEUKOCYTES IN BLOOD BY AUTOMATED COUNT 11/18/2022 14:50:32 9.36 4.00-10.80 (K/uL) Final Segs 11/18/2022 14:50:32 79.0 Above high normal 40.0-75.0 (%) Final Lymphs % 11/18/2022 14:50:32 12.7 Below low normal 18.0-42.0 (%) Final Monos 11/18/2022 14:50:32 6.4 1.0-11.0 (%) Final Eosinophils 11/18/2022 14:50:32 0.4 0.0-6.0 (%) Final Basos 11/18/2022 14:50:32 0.3 0.0-2.0 (%) Final Immature Granulocyte, Percent 11/18/2022 14:50:32 1.2 0.0-2.0 (%) Final Absolute Segs 11/18/2022 14:50:32 7.39 1.80-7.70 (K/uL) Final Lymphs, absolute 11/18/2022 14:50:32 1.19 1.00-4.80 (K/ul) Final Monos, Abs 11/18/2022 14:50:32 0.60 0.00-1.10 (K/uL) Final Eos, Abs 11/18/2022 14:50:32 0.04 0.00-0.70 (K/uL) Final Basos, Abs 11/18/2022 14:50:32 0.03 0.00-0.20 (K/uL) Final Immature Granulocytes, Number 11/18/2022 14:50:32 0.11 0.00-0.20 (K/uL) Final Performing Location [facility] [place] [address] [facility] [address]
--- OUTSIDE RECORDS SUMMARY | 2023-01-17 06:49 | External Medical Summary | Summary of Care ---
Author Name Unknown Organization [facility] Address [address] [place] [facility] [place] [place] [address] Phone [phone] Care Team Providers Care Lot Boss Name Role Phone Chelo Louie DO Primary Care Provider Reason for Visit * Reason Comments Outpatient Testing Encounter Details Date Type Department Care Team Description 09/27/2022 Laboratory Laboratory, [facility] [address] [place] [address] OhDomenico mendoza [facility] [address] [place] [address] Arrived Allergies Active Allergy Reactions Severity Noted Date Comments Cefaclor Rash 07/11/2013 documented as of this encounter (statuses as of 09/27/2022) Medications Medication Sig Dispensed Refills Start Date End Date Status Vit-Fe Fumarate-FA ( FORMULA) 27-1 MG Tablet 0 Active Levothyroxine Sodium 100 MCG Oral Tablet (Levoxyl) Take 1 Tablet by mouth in the morning. (at least 30 min prior to breakfast or other meds). 34 Tablet 5 06/27/2022 Active Nystatin 785441 UNIT/GM External Cream Apply topically to affected area 2 times a day. Apply to stomach twice a day as needed for rash 30 g 0 09/27/2022 Active documented as of this encounter (statuses as of 09/27/2022) Active Problems Problem Noted Date Supervision of normal 07/26/19 23 Antepartum multigravida of advanced mate rnal age 0406/24/2022 Overview: Declines genetics Hypothyroidism affecting in th ird trimester 07/05/2019 Overview: History of valdemar's. TSH each [...] be handled at the discretion of the forestry extension specialist. 5. Recommend follow up ultrasound for growth in 4-6 weeks Adult BMI 19-24 kg/sq m 08/11/2014 Estimated Date of Delivery Comme nts Yes 02/03/2023 Based on Ultraso und documented as of this encounter (statuses as of 09/27/2022) Resolved Problems Problem Noted Date Resolved Date Supervision of high-risk , third trimes ter 07/05/2019 10/17/2019 Overview: Tdap given in left deltoid today 08/20/2019. Mariah Mobley LPN History of prior with IUGR 03/201910/17/2019 Last Assessment & Plan: 1. Discussed that patients with a history of IUGR pregnancies are at risk for recurrence. Discussed that there are currently no known interventions for prevention of subsequent IUGR aside from eliminating possible risk factors such as poor nutrition, poor care, tobacco/ETOH exposure. 2. Recommend Maternal Medicine ultrasound for growth in 4 to 6 weeks. Subchorionic hemorrhage of placenta in first tri mester 02/05/2019 10/17/2019 Overview: 02/05/19 - subchorionic hemorrhage measuring 22 x 10 x 17 mm left inferior to the gestational sac. - Jud Thorpe CNM INFORMATION 12/12/2016 02/12/2017 Overview: Patient received flu vaccine elsewhere. 12/12/2016 Carmita Akbar RN Would like TDAP next visit. 12/26/2016 Tdap Vaccine administered per clinic protocol. Pt given VIS(vaccine information sheet) Sonali Drew RN Abnormal glucose tolerance in mother complicatin g 11/15/2016 02/12/2017 Overview: Elevated glucola, 3hr GTT ordered Supervision of other normal , antepartu m 06/22/2016 02/12/2017 Encounter for supervision of normal first in first trimester 10/21/2014 04/28/2015 Overview: Got flu vaccine at 's work Tdap vaccine administered 02/19/2015 Yao Heller, RN Plan to breastfeed. Took Brittney aLuren's class. Hoping for unmedicated labor/. 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 Pt taking [...] be handled at the discretion of the forestry extension specialist. documented as of this encounter (statuses as of 09/27/2022) Immunizations Name Administration Dates Next Due Seasonal Influenza, Quadriva lent, No Preserve, 6 Mons & Above, IM 12/24/2020,12/23/2019 Seasonal Influenza, Split, I IV3, With Preserve, Inj 01/03/2014 TDAP (age 10 and older)(Boostrix) 08/20/2019,,02/19/2015 documented as of this encounter Social History Tobacco Use Types Packs/Day Years Used Date Smoking Tobacco: Never Smokeless Tobacco: Never Alcohol Use Standard Drinks/Week Comments No 0 (1 standard drink = 0.6 oz pur e alcohol) Estimated Date of Delivery Comme nts Yes 02/03/2023 Based on Ultraso und Sex Assigned at Date Recorded Not on file Job Start Date Occupation Industry Not on file Not on file Not on file documented as of this encounter Plan of Treatment Upcoming Encounters Date Type Specialty Care Team Description 10/25/2022 Office Visit Gynecology Obstetrics Erendira Mosqueda CRNP [address] [place] [address] Health Maintenance Due Date Last Done Comments Hepatitis B (1 of 3 - 3-dose series) 1985 COVID-19 Vaccine (#1) 04/27/1988 Depression Screening, Annual for Pts 12 and Over 06/22/2018 06/22/2017 Influenza Vaccine (FLU shot) (#1) 2022 12/24/2020, 12/23/2019, 01/03/2017, Additional history exists TSH 07/26/2023 07/25/2022, 06/05, 06/24/2021, Additional history exists Pap Smear 06/25/2027 06/24/2022, 04/2018, 07/07/2014, Additional history exists DTaP,Tdap,and Td Vaccines (4 - Td or Tdap) 08/19/2029 08/20/2019, 12/26/2016, 02/19/2015 Hepatitis C Screening Completed 06/24/2022 , 06/24/2022, 06/24/2022 GARDASIL-HPV IMMUNIZATION SERIES Aged Out No longer [...] filedocumented as of this encounter Care Teams Lot Boss Relationship Specialty Start Date End Date Chelo Louie DO [address] [place] [address] PCP - General Family Medicine 07/02/14 documented as of this encounter
--- OUTSIDE RECORDS SUMMARY | 2023-01-17 06:49 | External Medical Summary ---
Author Name Unknown Address Unknown Organization [id number]:[facility] [place] - [address] [facility] [address] Laboratory Report Ordering Provider Test Date Status CINDY HANKS 11/18/2022 14:50:32 Final Observation Date Value Abnormality Reference (Units ) Status Treponema pallidum Ab [Presence] in Serum by Immunoassay 11/18/2022 14:50:32 Nonreactive Nonreactive Final No serologic evidence of syp hilis. No additional testing clinicially indicated at this time. Consider repeat testing in 2-4 weeks if acute or primary syphilis is suspected. Performing Location LAB[facility]ATORY [facility] [place] - [address] [place] [address]
--- OUTSIDE RECORDS SUMMARY | 2023-01-17 06:49 | External Medical Summary | Summary of Care ---
Author Name Unknown Organization [facility] Address [address] [place] [address] Phone [phone] Care Team Providers Care Inspecting Engineer Name Role Phone Chelo Louie DO Primary Care Provider Reason for Visit * Reason Comments Earache Encounter Details Date Type Department Care Team Description 12/22/2022 Convenient Care Visit [facility] [address] [place] [address] Shanon Brennan PA-C [address] [facility] [place] [id number] Dysfunction of right eustachian tube* Allergies Active Allergy Reactions Severity Noted Date Comments Cefaclor Rash 07/11/2013 documented as of this encounter (statuses as of 12/22/2022) Medications Medication Sig Dispensed Refills Start Date End Date Status Vit-Fe Fumarate-FA ( FORMULA) 27-1 MG Tablet 0 Active Levothyroxine Sodium 100 MCG Oral Tablet (Levoxyl) Take 1 Tablet by mouth in the morning. (at least 30 min prior to breakfast or other meds). 34 Tablet 5 06/27/2022 Active Nystatin 822949 UNIT/GM External Cream Apply topically to affected area 2 times a day. Apply to stomach twice a day as needed for rash 30 g 0 09/27/2022 Active Amoxicillin 500 MG Oral Capsule (Amoxil)Indications :Salivary gland disturbance Take 1 Capsule by mouth in the morning and 1 Capsule before bedtime. Do all this for 10 days. 20 Capsule 0 12/14/2022 12/24/2022 Active Aspirin 81 MG Oral Tablet Delayed Release Take 1 Tablet by mouth in the morning. 100 Tablet 3 12/22/2022 Active predniSONE 20 MG Oral Tablet (Deltasone)Indicati ons:Dysfunction of right eustachian tube Take 1 Tablet by mouth in the morning for 5 days. 5 Tablet 0 12/22/2022 12/27/2022 Active documented as of this encounter (statuses as of 12/22/2022) Active Problems Problem Noted Date Supervision of [...] be handled at the discretion of the graphics specialist. 5. Recommend follow up ultrasound for growth in 4-6 weeks Adult BMI 19-24 kg/sq m 08/11/2014 Estimated Date of Delivery Comme nts Yes 02/03/2023 Based on Ultraso und documented as of this encounter (statuses as of 12/22/2022) Resolved Problems Problem Noted Date Resolved Date Supervision of high-risk , jane taveras 07/05/2019 10/17/2019 Overview: Tdap given in left [...] be handled at the discretion of the graphics specialist. documented as of this encounter (statuses as of 12/22/2022) Immunizations Name Administration Dates Next Due SEASONAL [...] drink = 0.6 oz pur e alcohol) Food Insecurity Answer Date Recorded Within the past 12 months, y ou worried that your food would run out before you got money to buy more. Never true 11/18/2022 Within the past 12 months, t he food you bought just didn't last and you didn't have money to get more. Never true 11/18/2022 Estimated Date of Delivery Comme nts Yes 02/03/2023 Based on Ultraso und Sex Assigned at Date Recorded Female 11/18/2022 2:06 PM E DT Job Start Date Occupation Industry Not on file Not on file Not on file documented as of this encounter Last Filed Vital Signs Vital Sign Reading Time Taken Comments Blood Pressure 130/82 12/22/2022 12:06 PM EDT Pulse 76 12/22/2022 12:06 PM EDT Temperature 36.4 C (97.6 F) 12/22/2022 12:06 PM E DT Respiratory Rate 16 12/22/2022 12:06 PM EDT Oxygen Saturation 99% 12/22/2022 12:06 PM EDT Inhaled Oxygen Concentration - - Weight 75.3 kg (166 lb) 12/22/2022 12:06 PM EDT Height 152.4 cm (5') 12/22/2022 12:06 PM EDT Body Mass Index 32.42 12/22/2022 12:06 PM EDT documented in this encounter Patient Instructions * Patient Instructions* Shanon Brennan PA-C - 12/22/2022 12:16 PM EDT Be sure to finish entire course of prednisone even if you are feeling better. Be aware of possible side effects of prednisone as discussed (increased appetite, weight gain, hyperglycemia, insomnia, dizziness). Do not take NSAIDs while taking prednisone (Ibuprofen, Naproxen) Take all medications as prescribed Nasal [place]: use saline nasal spray to avoid dryness and thin out mucous. OTC antihistamine: benadryl or claritin one daily Continue supportive measures-- Drink plenty of fluids, rest, cool mist humidifier, hot showers. Do warm salt water gargles and/or popsicles, throat lozenges for any sore throat. You may also use acetaminophen OTC for relief of pain or fevers. If you were Prescribed antibiotics, be sure to finish entire course even if you are feeling better. You can take florajen, a probiotic if you get nausea/diarrhea with antibiotics. Recommend taking them in between doses of antibiotic for max efficacy. Follow up with PCP within 5-7 day(s) if no improvement, sooner if worse. Go to the ED if any new or severe symptoms appear. documented in this encounter Progress Notes * Shanon Brennan PA-C - 12/22/2022 12:10 PM EDT Apurva Prakash is a 37 year old female. who presents with upper respiratory symptoms for 10 day(s) Patient was accompanied by Self. HPI Signs and Symptoms include: right ear plugged Severity of Symptoms: Moderate Timing (how often does it occur): Constant Modifying Factors (what was done since onset of symptoms): antibiotic Notes that her symptoms also include "a minimal cold" Constitutional: not fevers, chills, sweats, fatigue Last test for COVID was recent Patient has not been positive for COVID in the last 90 days ROS All others negative other than those noted in HPI Recent illnesses in household: Yes HISTORY Patient Active Problem List Diagnosis Code Adult BMI 19-24 kg/sq m [id number] Hypothyroidism affecting in third trimester O99.283, E03.9 Antepartum multigravida of advanced maternal age O09.529 Supervision of normal Z34.90 Current Outpatient Medications Medication Sig Dispense Refill Vit-Fe Fumarate-FA ( FORMULA) 27-1 MG Tablet Levothyroxine Sodium 100 MCG Oral Tablet (Levoxyl) Take 1 Tablet by mouth in the morning. (at least30 min prior to breakfast or other meds). 34 Tablet 5 Amoxicillin 500 MG Oral Capsule (Amoxil) Take 1 Capsule by mouth in the morning and 1 Capsule before bedtime. Do all this for 10 days. 20 Capsule 0 Aspirin 81 MG Oral Tablet Delayed Release Take 1 Tablet by mouth in the morning. 100 Tablet 3 predniSONE 20 MG Oral Tablet (Deltasone) Take 1 Tablet by mouth in the morning for 5 days. 5 Tablet0 Nystatin [id number] UNIT/GM External Cream Apply topically to affected area 2 times a day. Apply to stomach twice a day as needed for rash 30 g 0 No current facility-administered medications for this visit. Past Medical History: Diagnosis Date Valdemar's thyroiditis Past Surgical History: Procedure Laterality Date NONE Review of patient's allergies indicates: Allergen Reactions Ceclor [Cefaclor] Rash Family History Problem Relation Age of Onset Hypertension Grandfather (Maternal) Diabetes Father Thyroid Disorder Father Hypertension Mother Thyroid Disorder Grandmother (Paternal) No Known Problems Brother No Known Problems Brother No Known Problems Son No Known Problems Daughter Family Status Relation Status MGFA (Not Specified) Fa Alive Mo Alive PGMA (Not Specified) Bro Alive Bro Alive Son Alive Karl Alive Social History Socioeconomic History Marital status: Spouse name: Carlitos Number of children: 2 Years of education: Not on file Highest education level: Not on file Occupational History Occupation: all around patternmaker Tobacco Use Smoking status: Never Smokeless tobacco: Never Vaping Use Vaping Use: Never used Substance and Sexual Activity Alcohol use: No Drug use: No Sexual activity: Yes Partners: Male Other Topics Concern Not on file Social History Narrative Not on file Social Determinants of Health Financial Resource Strain: Not on file Food Insecurity: No Food Insecurity Worried About Running Out of Food in the Last Year: Never true Ran Out of Food in the Last Year: Never true Transportation Needs: Not on file Physical Activity: Not on file Stress: Not on file Social Connections: Not on file Intimate Partner Violence: Not on file Housing Stability: Not on file OBJECTIVE BP 130/82 (BP Site: Left Arm, BP Position: Sitting, BP Cuff Size: Regular) | Pulse 76 | Temp 36.4 C (97.6 F) (Tympanic) | Resp 16 | Ht 1.524 m (5') | Wt 75.3 kg (166 lb) | LMP 04/25/2022 (Within Weeks) | SpO2 99% | BMI 32.42 kg/m | BSA 1.79 m Physical Exam: General Appearance: awake, alert, no apparent distress HEENT: perrl and eomi Tm right: clear, normal light reflex, no erythema +serous effusion Tm left: clear, normal light reflex, no erythema oral pharynx clear, mucus membranes moist + red and irritated pharynx no sinus tenderness or facial pain to percussion + turbinate engorgement and discharge Neck: normal, supple, + adenopathy Respiratory: clear to auscultation, no rhonchi, no wheezes and no crackles Heart: regular rate, regular rhythm, no murmurs , no rubs and no gallops Skin: skin color, texture, turgor are normal, no rashes or significant lesions Patient instructions: Patient Instructions Be sure to finish entire course of prednisone even if you are feeling better. Be aware of possible side effects of prednisone as discussed (increased appetite, weight gain, hyperglycemia, insomnia, dizziness). Do not take NSAIDs while taking prednisone (Ibuprofen, Naproxen) Take all medications as prescribed Nasal [place]: use saline nasal spray to avoid dryness and thin out mucous. OTC antihistamine: benadryl or claritin one daily Continue supportive measures-- Drink plenty of fluids, rest, cool mist humidifier, hot showers. Do warm salt water gargles and/or popsicles, throat lozenges for any sore throat. You may also use acetaminophen OTC for relief of pain or fevers. If you were Prescribed antibiotics, be sure to finish entire course even if you are feeling better. You can take florajen, a probiotic if you get nausea/diarrhea with antibiotics. Recommend taking them in between doses of antibiotic for max efficacy. Follow up with PCP within 5-7 day(s) if no improvement, sooner if worse. Go to the ED if any new or severe symptoms appear. ASSESSMENT AND PLAN Dysfunction of right eustachian tube (Primary) - predniSONE 20 MG Oral Tablet (Deltasone); Take 1 Tablet by mouth in the morning for 5 days. Discussed treatment options. Spoke about limited use of steroid with little to no benefit for patients. She notes that she would like to try anyway. Also notes that she called food products tester earlier and saidsteroid was ok. To avoid sudafed due to status. Encouraged saline nasal irrigation for symptoms. Care instructions given. Additional instructions per patient instructions attached. Follow up with PCP in 14 days if symptoms persist. Reasons to go to ED discussed with patient including but not limited to development of acute or severe symptoms. Patient agrees with the plan and demonstrates verbal understanding. Patient stable at the time of discharge. Patient goals for plan of care were discussed. Shanon Brennan PA-C [address] [place] [address] documented in this encounter Nursing Notes * RT Kandy - 12/22/2022 12:07 PM EDT 37 y/o F presents for right earache and diminished sounds. She was here last week-we started on abxand she has had no improvement. She has one more day of antibiotic. She has no other symptoms. documented in this encounter Plan of Treatment Upcoming Encounters Date Type Specialty Care Team Description 01/05/2023 Office Visit Gynecology Obstetrics Erendira Mosqueda CRNP [address] [place] [id number] 01/12/2023 Office Visit Gynecology Obstetrics Mikala Harris CRNP [address] [place] [address] 01/19/2023 Office Visit Gynecology Obstetrics Erendira Mosqueda CRNP [address] [place] [address] 01/24/2023 Office Visit Gynecology Obstetrics Erendira Mosqueda CRNP [address] [place] [address] 02/01/2023 Office Visit Gynecology Obstetrics Erendira Mosqueda CRNP [address] [place] [address] Health Maintenance Due Date Last Done Comments [...] Not on filedocumented as of this encounter Visit Diagnoses Diagnosis Dysfunction of right eustachian tube- Primary Dysfunction of Eustachian tube documented in this encounter Care Teams Inspecting Engineer Relationship Specialty Start Date End Date Chelo Louie DO [address] [place], [place] [address] PCP - General Family Medicine 07/02/14 documented as of this encounter
--- OUTSIDE RECORDS SUMMARY | 2023-01-17 06:49 | External Medical Summary | Summary of Care ---
Author Name Unknown Organization [facility] Address [address] [facility] [place] [address] Phone [phone] Care Team Providers Care Manager Creative Name Role Phone Chelo Louie DO Primary Care Provider Reason for Visit * Reason Comments Return Visit Encounter Details Date Type Department Care Team Description 10/25/2022 Office Visit Gynecology/Obstetrics [facility]ett[place]orgette Oh [address] [place] [address] Erendira Mosqueda CRNP [address] [place] [address] Encounter for supervision of normal in second trimester, unspecified *; Antepartum multigravida of advanced maternal age; Hypothyroidism affecting in third trimester Allergies Active Allergy Reactions Severity Noted Date Comments Cefaclor Rash 07/11/2013 documented as of this encounter (statuses as of 10/25/2022) Medications Medication Sig Dispensed Refills Start Date End Date Status Vit-Fe Fumarate-FA ( FORMULA) 27-1 MG Tablet 0 Active Levothyroxine Sodium 100 MCG Oral Tablet (Levoxyl) Take 1 Tablet by mouth in the morning. (at least 30 min prior to breakfast or other meds). 34 Tablet 5 06/27/2022 Active Nystatin [id number] UNIT/GM External Cream Apply topically to affected area 2 times a day. Apply to stomach twice a day as needed for rash 30 g 0 09/27/2022 Active documented as of this encounter (statuses as of 10/25/2022) Active Problems Problem Noted Date Supervision of [...] be handled at the discretion of the auto body repair teacher. 5. Recommend follow up ultrasound for growth in 4-6 weeks Adult BMI 19-24 kg/sq m 08/11/2014 Estimated Date of Delivery Comme nts Yes 02/03/2023 Based on Ultraso und documented as of this encounter (statuses as of 10/25/2022) Resolved Problems Problem Noted Date Resolved Date [...] be handled at the discretion of the auto body repair teacher. documented as of this encounter (statuses as of 10/25/2022) Immunizations Name Administration Dates Next Due Seasonal Influenza, PF, 6 mo ns & Above, IM , (Flulaval) 12/24/2020,12/23/2019 Seasonal Influenza, Split, I IV3, With [...] Sign Reading Time Taken Comments Blood Pressure 110/80 10/25/2022 7:49 AM EDT Pulse - - Temperature - - Respiratory Rate - - Oxygen Saturation - - Inhaled Oxygen Concentration - - Weight 68.9 kg (152 lb) 10/25/2022 7:49 AM EDT Height 152.4 cm (5') 10/25/2022 7:49 AM EDT Body Mass Index 29.69 10/25/2022 7:49 AM EDT documented in this encounter Progress Notes * SRIRAM Ngo - 10/25/2022 8:05 AM EDT 25w4d Complaints: none Had a bad headache last week, but this week seems better. Feeling well otherwise. Good FM. No contractions, bleeding, or LOF. Glucola, TSH next visit. SRIRAM Ngo * Farida Weinberg LPN - 10/25/2022 7:56 AM EDT 25w4d 28wk packet provided. Pt denies any concerns. documented in this encounter Plan of Treatment Upcoming Encounters Date Type Specialty Care Team Description 11/18/2022 Laboratory Laboratory Domenico Oh [address] [facility] [place] [address] Scheduled Orders Name Type Priority Associated Diagnoses Orde r Schedule SYPHILIS ANTIBODY SCREEN WITH REFLEX TO RPR Lab Routine Encounter for supervision of normal in second trimester, unspecified Expected: 11/25/2022 (Approximate), Expires: 2023 50-G GESTATIONAL GLUCOSE, 1 HOUR Lab Routine Encounter for supervision of normal in second trimester, unspecified Expected: 11/25/2022 (Approximate), Expires: 2023 CBC WITH WBC DIFFERENTIAL AND ANEMIA REFLEX WORKUP Lab Routine Encounter for supervision of normal in second trimester, unspecified Expected: 11/25/2022 (Approximate), Expires: 2023 TSH WITH FREE T4 IF INDICATED Lab Routine Hypothyroidism affecting in third trimester Expected: 11/25/2022 (Approximate), Expires: 2023 Health Maintenance Due Date Last Done Comments Hepatitis B (1 of 3 - 3-dose series) 1985 COVID-19 Vaccine (#1) 04/27/1988 Depression Screening, Annual for Pts 12 and Over 06/22/2018 06/22/2017 Influenza Vaccine (FLU shot) (#1) 2022 12/24/2020, 12/23/2019, 01/03/2017, Additional history exists Diabetes Screening 06/23/2023 06/22/2020, 07/07/2014 TSH 09/28/2023 09/27/2022, 07/05, 06/24/2022, Additional history exists Pap Smear 06/24/2025 06/24/2022, 12/0 04/2018, 07/07/2014, Additional history exists Cervical Cancer Screening 06/25/2027 HPV/Co-Test 06/25/2027 06/24/2022 DTaP,Tdap,and Td Vaccines (4 - Td or [...] as of this encounter Visit Diagnoses Diagnosis Encounter for supervision of normal in second trimester, unspecified - Primary Antepartum multigravida of advanced maternal age Hypothyroidism affecting in third trimester documented in this encounter Care Teams Manager Creative Relationship Specialty Start Date End Date Chelo Louie DO [address] [place] [address] PCP - General Family Medicine 07/02/14 documented as of this encounter
--- OUTSIDE RECORDS SUMMARY | 2023-01-17 06:49 | External Medical Summary | Summary of Care ---
Author Name Unknown Organization [facility] Address [address] [place] [address] Phone [phone] Care Team Providers Care Dry Curer Name Role Phone Chelo Louie DO Primary Care Provider Reason for Visit * Reason Comments Ear Pain Right ear pain start ed last night Cold Symptoms Slight sinus congest ion and post nasal drip for several days Encounter Details Date Type Department Care Team Description 12/14/2022 Convenient Care Visit [facility] [address] [place] [address] Amy Schwab PA-C [address] [facility] [place] [id number] Dysfunction of right eustachian tube*; Salivary gland disturbance; Right otitis media with effusion Allergies Active Allergy Reactions Severity Noted Date Comments Cefaclor Rash 07/11/2013 documented as of this encounter (statuses as of 12/14/2022) Medications Medication Sig Dispensed Refills Start Date End Date Status Vit-Fe Fumarate-FA ( FORMULA) 27-1 MG Tablet 0 Active Levothyroxine Sodium 100 MCG Oral Tablet (Levoxyl) Take 1 Tablet by mouth in the morning. (at least 30 min prior to breakfast or other meds). 34 Tablet 5 06/27/2022 Active Nystatin 572834 UNIT/GM External Cream Apply topically to affected area 2 times a day. Apply to stomach twice a day as needed for rash 30 g 0 09/27/2022 Active Amoxicillin 500 MG Oral Capsule (Amoxil)Indications :Salivary gland disturbance Take 1 Capsule by mouth in the morning and 1 Capsule before bedtime. Do all this for 10 days. 20 Capsule 0 12/14/2022 12/24/2022 Active documented as of this encounter (statuses as of 12/14/2022) Active Problems Problem Noted Date Supervision of normal 07/26/19 23 Antepartum multigravida of advanced mate rnal age 0406/24/2022 Overview: Declines genetics Hypothyroidism affecting in th ird trimester 07/05/2019 Overview: History of vadlemar's. TSH each trimester. Increased to 100mcg levothyroxine [...] be handled at the discretion of the navigation officer. 5. Recommend follow up ultrasound for growth in 4-6 weeks Adult BMI 19-24 kg/sq m 08/11/2014 Estimated Date of Delivery Comme nts Yes 02/03/2023 Based on Ultraso und documented as of this encounter (statuses as of 12/14/2022) Resolved Problems Problem Noted Date Resolved Date [...] be handled at the discretion of the navigation officer. documented as of this encounter (statuses as of 12/14/2022) Immunizations Name Administration Dates Next Due SEASONAL INFLUENZA, PF, 6 M & Above, IM , (FLULAVAL or FLUZONE) 12/05/2022,12/24/2020,12/23/2019 Seasonal Influenza, Split, I IV3, With Preserve, Inj 01/03/2014 TDAP (age 10 and older)(Boostrix) 2022,08/20/2019,12/26/2016,02/20/20 15 documented as of this encounter Social History Tobacco Use Types Packs/Day Years Used Date Smoking Tobacco: Never Smokeless Tobacco: Never Tobacco Cessation:Counseling Given: Not Answered Alcohol Use Standard Drinks/Week Comments No 0 [...] Sign Reading Time Taken Comments Blood Pressure 132/86 12/14/2022 10:23 AM EDT Pulse 88 12/14/2022 10:23 AM EDT Temperature 36.4 C (97.5 F) 12/14/2022 10:23 AM E DT Respiratory Rate 16 12/14/2022 10:23 AM EDT Oxygen Saturation 96% 12/14/2022 10:23 AM EDT Inhaled Oxygen Concentration - - Weight 73 kg (161 lb) 12/14/2022 10:23 AM EDT Height 152.4 cm (5') 12/14/2022 10:23 AM EDT Body Mass Index 31.44 12/14/2022 10:23 AM EDT documented in this encounter Progress Notes * Amy Schwab PA-C - 12/14/2022 10:22 AM EDT Subjective: Nursing Notes: Kitty Gann LPN 12/14/22 1026 Signed Apurva Prakash is a 37 year old female who presents to walk-in clinic today complaining of Chief Complaint Patient presents with Ear Pain Right ear pain started last night Cold Symptoms Slight sinus congestion and post nasal drip for several days Tried: tylenol Pt accompanied by: child Sx are R ear pain, congestion, no sore throat, pain inferior to the right side of the jaw, swelling no sick contacts at home. Sig med hx/risk factors: pt is currently : 33 week no flu shot this year. Review of Systems Constitutional: Negative for activity change, appetite change, fatigue and fever. HENT: Positive for congestion, ear pain (right), postnasal drip and sore throat. Negative for ear discharge, rhinorrhea, sinus pressure, sinus pain and voice change. Eyes: Negative for discharge and redness. Respiratory: Negative for cough, chest tightness, shortness of breath and wheezing. Cardiovascular: Negative for chest pain. Gastrointestinal: Positive for nausea (just a little gagging from the PND). Negative for abdominal pain, diarrhea and vomiting. Genitourinary: Negative. Musculoskeletal: Negative for arthralgias, myalgias, neck pain and neck stiffness. Allergic/Immunologic: Negative for environmental allergies. Neurological: Negative for dizziness and headaches. Hematological: Positive for adenopathy (maybe on the right side). PMH: Patient Active Problem List Diagnosis Code Adult BMI 19-24 kg/sq m [id number] Hypothyroidism affecting in third trimester O99.283, E03.9 Antepartum multigravida of advanced maternal age O09.529 Supervision of normal Z34.90 Current Outpatient Medications Medication Sig Dispense Refill Amoxicillin 500 MG Oral Capsule (Amoxil) Take 1 Capsule by mouth in the morning and 1 Capsule before bedtime. Do all this for 10 days. 20 Capsule 0 Vit-Fe Fumarate-FA ( FORMULA) 27-1 MG Tablet Levothyroxine Sodium 100 MCG Oral Tablet (Levoxyl) Take 1 Tablet by mouth in the morning. (at least30 min prior to breakfast or other meds). 34 Tablet 5 Nystatin 677677 UNIT/GM External Cream Apply topically to affected area 2 times a day. Apply to stomach twice a day as needed for rash 30 g 0 No current facility-administered medications for this visit. Past Medical History: Diagnosis Date Valdemar's thyroiditis Past Surgical History: Procedure Laterality Date NONE Review of patient's allergies indicates: Allergen Reactions Ceclor [Cefaclor] Rash Objective: BP 132/86 | Pulse 88 | Temp 36.4 C (97.5 F) (Tympanic) | Resp 16 | Ht 1.524 m (5') | Wt 73 kg (161 lb) | LMP 04/25/2022 (Within Weeks) | SpO2 96% | BMI 31.44 kg/m | BSA 1.76 m Physical Exam Constitutional: General: She is not in acute distress. Appearance: Normal appearance. She is normal weight. She is not ill-appearing. HENT: Head: Normocephalic. Right Ear: Ear canal and external ear normal. Left Ear: Tympanic membrane, ear canal and external ear normal. Ears: Comments: No erythema, R appears effused. Nose: No congestion or rhinorrhea. Mouth/Throat: Mouth: Mucous membranes are moist. Pharynx: No oropharyngeal exudate or posterior oropharyngeal erythema. Eyes: General: Right eye: No discharge. Left eye: No discharge. Extraocular Movements: Extraocular movements intact. Conjunctiva/sclera: Conjunctivae normal. Cardiovascular: Rate and Rhythm: Normal rate and regular rhythm. Heart sounds: Normal heart sounds. Pulmonary: Effort: Pulmonary effort is normal. No respiratory distress. Breath sounds: Normal breath sounds. No wheezing or rhonchi. Musculoskeletal: General: Normal range of motion. Cervical back: Normal range of motion. Tenderness (mild swelling inferior the to the R side mandible) present. Skin: Findings: No rash. Neurological: Mental Status: She is alert and oriented to person, place, and time. Psychiatric: Mood and Affect: Mood normal. Thought Content: Thought content normal. Judgment: Judgment normal. ASSESSMENT/PLAN: Dysfunction of right eustachian tube (Primary) Salivary gland disturbance - Amoxicillin 500 MG Oral Capsule (Amoxil); Take 1 Capsule by mouth in the morning and 1 Capsule before bedtime. Do all this for 10 days. Right otitis media with effusion Discussed I think this is eustachian tube dysfunction secondary to possible swollen salivary gland and putting pressure in the area blocking the tube. Discussed home care, and that there is concern that it is developing infection Marlo ed h/o providedo n salivary gland issues, discussed sucking on josesito Return instruction reviewed with pt in detail. Reasons to report to the ED were also reviewed. Voiced understanding Advised to follow up if no improvement in 3-5days. Amy Schwab PA-C documented in this encounter Nursing Notes * Kitty Gann LPN - 12/14/2022 10:26 AM EDT Apurva Prakash is a 37 year old female who presents to walk-in clinic today complaining of Chief Complaint Patient presents with Ear Pain Right ear pain started last night Cold Symptoms Slight sinus congestion and post nasal drip for several days Tried: tylenol Pt accompanied by: child documented in this encounter Miscellaneous Notes * Pt Handout (on AVS) - Amy Schwab PA-C - 12/14/2022 10:38 AM EDT [id number] Salivary Gland Swelling, Uncertain Cause Salivary glands make saliva in response to food in your mouth. Saliva is mostly water. It also has minerals and proteins that help break down food and keep the mouth and teeth healthy. There are 3 pairs of salivary glands: Parotid glands. In front of the ear. Submandibular glands. Below the jaw. Sublingual glands. Below the tongue. Each gland has a tube (duct) that carries saliva from the gland into the mouth. The salivary glands can sometimes get swollen. Causes can include: Viral infection (such as childhood mumps) Bacterial infections Sjgren syndrome Diabetes Malnutrition Sarcoidosis Blocked salivary duct (from stones or tumors) Certain medicines can affect salivary flow. This can lead to swollen glands. Tell your healthcare provider about all of the medicines you take. Tests are done to find the cause of the swelling. These may include blood tests, X-ray, ultrasound,CT scan, or injecting dye into the duct to look for blockage. Treatment depends on the exact cause of the swelling. Home care If the area is painful, you can take [id number]-[id number] medicines such as acetaminophen or ibuprofen, unless you were prescribed another medicine. If you have chronic liver or kidney disease or everhad a stomach ulcer or gastrointestinal bleeding, talk with your healthcare provider before using these medicines. Wetting a cloth with warm water and putting it over the affected gland for 10 to 15 minutes at a time can also help ease pain. To help prevent blockages and infections: o Drink 6 to 8 glasses of fluid per day (such as water, tea, and clear soup) to keep well-hydrated. o If you smoke, ask your healthcare provider for help to quit. Smoking makes salivary gland stones more likely. o Maintain good dental hygiene. [place] and floss your teeth daily. See your dentist for regular cleanings. Follow-up care Follow up with your healthcare provider, or as advised. See your provider for further exams and testing. If you have been referred to a specialist, make an appointment right away. When to get medical advice Call your healthcare provider right away if any of these occur: More pain or swelling in the gland Unable to open mouth or pain when opening mouth Fever of 100.4F (38C) or higher, or as advised by your provider Redness over the gland Fluid (pus) draining into the mouth Trouble breathing or swallowing Any new symptoms Prevention Here are steps you can take to help prevent an infection: Keep good handwashing habits. Don?t have close contact with people who have sore throats, colds, or other upper respiratory infections. Don?t smoke and stay away from secondhand smoke. Stay up-to-date with all of your vaccines. Last Reviewed Date: 01/04/202219992638-6635 [facility]. All rights reserved. This information is not intended as a substitute for professional medical care. Always follow your healthcare professional's instructions. documented in this encounter Plan of Treatment Upcoming Encounters Date Type Specialty Care Team Description 12/22/2022 Imaging Radiology 12/22/2022 Office Visit Gynecology Obstetrics Erendira Mosqueda CRNP [address] [place] [id number] Health Maintenance Due Date Last Done Comments [...] eustachian tube- Primary Dysfunction of Eustachian tube Salivary gland disturbance Unspecified disease of the salivary glands Right otitis media with effusion Nonsuppurative otitis media, not specified as acute or chronic documented in this encounter Care Teams Dry Curer Relationship Specialty Start Date End Date Chelo Louie DO [address] [place] [address] PCP - General Family Medicine 07/02/14 documented as of this encounter"
--- OUTSIDE RECORDS SUMMARY | 2023-01-17 06:49 | External Medical Summary | Summary of Care ---
Author Name Unknown Organization [facility] Address [address] [facility] [address] Phone [phone] Care Team Providers Care Recreation Therapy Director Name Role Phone Chelo Louie DO Primary Care Provider Reason for Visit * Reason Onset Date Comments Return Visit Medication Administration 12/05/2022 Flu an d/or Pneumo Inj Encounter Details Date Type Department Care Team Description 12/05/2022 Office Visit Gynecology/Obstetrics [facility] [address] [place] [id number] Jacquelyn Montero PA-C [address] [place] [address] Encounter for supervision of other normal in third trimester*; Antepartum multigravida of advanced maternal age; Hypothyroidism affecting in third trimester; Need for prophylactic vaccination and inoculation against influenza Allergies Active Allergy Reactions Severity Noted Date Comments Cefaclor Rash 07/11/2013 documented as of this encounter (statuses as of 12/05/2022) Medications Medication Sig Dispensed Refills Start Date End Date Status Vit-Fe Fumarate-FA ( FORMULA) 27-1 MG Tablet 0 Active Levothyroxine Sodium 100 MCG Oral Tablet (Levoxyl) Take 1 Tablet by mouth in the morning. (at least 30 min prior to breakfast or other meds). 34 Tablet 5 06/27/2022 Active Nystatin 136424 UNIT/GM External Cream Apply topically to affected area 2 times a day. Apply to stomach twice a day as needed for rash 30 g 0 09/27/2022 Active documented as of this encounter (statuses as of 12/05/2022) Active Problems Problem Noted Date Supervision of [...] be handled at the discretion of the mainspring torque tester. 5. Recommend follow up ultrasound for growth in 4-6 weeks Adult BMI 19-24 kg/sq m 08/11/2014 Estimated Date of Delivery Comme nts Yes 02/03/2023 Based on Ultraso und documented as of this encounter (statuses as of 12/05/2022) Resolved Problems Problem Noted Date Resolved Date Supervision of high-risk , [facility] 07/05/2019 10/17/2019 Overview: Tdap given in left [...] Heller, RN Plan to breastfeed. Took Brittney Lauren's [...] be handled at the discretion of the mainspring torque tester. documented as of this encounter (statuses as of 12/05/2022) Immunizations Name Administration Dates Next Due SEASONAL [...] Sign Reading Time Taken Comments Blood Pressure 120/78 12/05/2022 8:47 AM EDT Pulse - - Temperature - - Respiratory Rate - - Oxygen Saturation - - Inhaled Oxygen Concentration - - Weight 72.1 kg (159 lb) 12/05/2022 8:47 AM EDT Height 152.4 cm (5') 12/05/2022 8:47 AM EDT Body Mass Index 31.05 12/05/2022 8:47 AM EDT documented in this encounter Progress Notes * Jacquelyn Montero PA-C - 12/05/2022 9:07 AM EDT 31w3d First time seeing patient. Without complaints/concerns. Denies bleeding, leaking, contractions. Affirms FM. Ultrasound order, follow up on borderline dilated renal pelvis from anatomy ultrasound. Counseled on flu vaccination, patient accepts. RTC in 2 weeks Jacquelyn Montero PA-C * Farida Weinberg LPN - 12/05/2022 8:52 AM EDT 31w3d Pt denies any concerns, asking about f/u u/s for kidneys, previous note says to f/u in 3rd trimester. documented in this encounter Nursing Notes * Farida Weinberg LPN - 12/05/2022 9:18 AM EDT Patient here for flu injection. Patient doing well no complaints. Injection given IM as ordered. Patient tolerated well. Patient to follow up as directed. Patient instructed to call if any complications. Patient verbalized understanding of instructions given. Injection site: Left Deltoid Medication Source: Dispensed stock medication documented in this encounter Plan of Treatment Upcoming Encounters Date Type Specialty Care Team Description 12/22/2022 Imaging Radiology 12/22/2022 Office Visit Gynecology Obstetrics Erendira Mosqueda CRNP [address] [place] [phone] Scheduled Orders Name Type Priority Associated Diagnoses Orde r Schedule US PREG LIMITED 1 OR MORE FETUSES Medical Imaging Routine Encounter for supervision of other normal in third trimester Expected: 01/05/2023 (Approximate), Expires: 01/06/2024 Health Maintenance [...] Visit Diagnoses Diagnosis Encounter for supervision of other normal in third trimester- Primary Antepartum multigravida of advanced maternal age Hypothyroidism affecting in third trimester Need for prophylactic vaccination and inoculation against influenza documented in this encounter Care Teams Recreation Therapy Director Relationship Specialty Start Date End Date Chelo Louie DO [address] [place] [address] PCP - General Family Medicine 07/02/14 documented as of this encounter
--- OUTSIDE RECORDS SUMMARY | 2023-01-17 06:49 | External Medical Summary | Summary of Care ---
Author Name Unknown Organization [facility] Address [address] [facility] [address] Phone [phone] Care Team Providers Care Business Objects Report Developer Name Role Phone Chelo Louie DO Primary Care Provider Reason for Visit * Reason Comments Outpatient Testing Encounter Details Date Type Department Care Team Description 11/18/2022 Laboratory Laboratory, [facility] [address] [place] [address] [facility]Domenico mendoza [facility] [address] [place] [address] Encounter for supervision of normal in second trimester, unspecified ; Hypothyroidism affecting in third trimester Allergies Active Allergy Reactions Severity Noted Date Comments Cefaclor Rash 07/11/2013 documented as of this encounter (statuses as of 11/18/2022) Medications Medication Sig Dispensed Refills Start Date End Date Status Vit-Fe Fumarate-FA ( FORMULA) 27-1 MG Tablet 0 Active Levothyroxine Sodium 100 MCG Oral Tablet (Levoxyl) Take 1 Tablet by mouth in the morning. (at least 30 min prior to breakfast or other meds). 34 Tablet 5 06/27/2022 Active Nystatin 044086 UNIT/GM External Cream Apply topically to affected area 2 times a day. Apply to stomach twice a day as needed for rash 30 g 0 09/27/2022 Active documented as of this encounter (statuses as of 11/18/2022) Active Problems Problem Noted Date Supervision of [...] be handled at the discretion of the mother helper. 5. Recommend follow up ultrasound for growth in 4-6 weeks Adult BMI 19-24 kg/sq m 08/11/2014 Estimated Date of Delivery Comme nts Yes 02/03/2023 Based on Ultraso und documented as of this encounter (statuses as of 11/18/2022) Resolved Problems Problem Noted Date Resolved Date [...] be handled at the discretion of the mother helper. documented as of this encounter (statuses as of 11/18/2022) Immunizations Name Administration Dates Next Due Seasonal [...] Encounters Date Type Specialty Care Team Description 12/05/2022 Office Visit Gynecology Obstetrics Jacquelyn Montero PA-C [address] [place] [address] Pending Results Name Type Priority Associated Diagnoses Date /Time SYPHILIS ANTIBODY SCREEN WITH REFLEX TO RPR Lab Routine Encounter for supervision of normal in second trimester, unspecified 11/18/2022 2:50 PM EDT 50-G GESTATIONAL GLUCOSE, 1 HOUR Lab Routine Encounter for supervision of normal in second trimester, unspecified 11/18/2022 2:50 PM EDT CBC WITH WBC DIFFERENTIAL AND ANEMIA REFLEX WORKUP Lab Routine Encounter for supervision of normal in second trimester, unspecified 11/18/2022 2:50 PM EDT TSH WITH FREE T4 IF INDICATED Lab Routine Hypothyroidism affecting in third trimester 11/18/2022 2:50 PM EDT SYPHILIS ANTIBODY SCREEN Lab Routine Encounter for supervision of normal in second trimester, unspecified 11/18/2022 2:50 PM EDT ANEMIA CBC Lab Routine Encounter for supervision of normal in second trimester, unspecified 11/18/2022 2:50 PM EDT DIFFERENTIAL, AUTOMATED Lab Routine Encounter for supervision of normal in second trimester, unspecified 11/18/2022 2:50 PM EDT ANEMIA REFLEX CHEMISTRY HOLD Lab Routine Encounter for supervision of normal in second trimester, unspecified 11/18/2022 2:50 PM EDT Health Maintenance Due Date Last Done Comments Hepatitis B (1 of 3 - 3-dose series) 1987 COVID-19 Vaccine (#1) 04/27/1988 Depression Screening 06/22/2018 06/22/2017 Influenza Vaccine (FLU shot) (#1) 2022 12/24/2020, 12/23/2019, 01/03/2017, Additional history exists Diabetes Screening 06/23/2023 06/22/2020, 07/07/2014 TSH 09/28/2023 09/27/2022, 07/05, 06/24/2022, Additional history exists Pap Smear 06/24/2025 06/24/2022, 12/0 04/2018, 07/07/2014, Additional history exists Cervical Cancer Screening 06/25/2027 HPV/Co-Test 06/25/2027 06/24/2022 DTaP,Tdap,and Td Vaccines (5 - Td or Tdap) 11/18/2032 11/18/2022, 08/20/2019, 12/26/2016, Additional history exists Hepatitis C Screening Completed 06/24/2022 , 06/24/2022, [...] supervision of normal in second trimester, unspecified Hypothyroidism affecting in third trimester documented in this encounter Care Teams Business Objects Report Developer Relationship Specialty Start Date End Date Chelo Louie DO [address] [place] [address] PCP - General Family Medicine 07/02/14 documented as of this encounter
--- OUTSIDE RECORDS SUMMARY | 2023-01-17 06:49 | External Medical Summary ---
Author Name Unknown Address Unknown Organization [id number]:[facility] [address] [place] [address] Laboratory Report Ordering Provider Test Date Status CINDY HANKS 11/18/2022 14:50:32 Final Observation Date Value Abnormality Reference (Units ) Status Glucose [Moles/volume] in Serum or Plasma --1 hour post 50 g glucose PO 11/18/2022 14:50:32 121 70-129 (mg/dL) Final Performing Location [facility] [place] [address] [place] [address]
--- OUTSIDE RECORDS SUMMARY | 2023-01-17 06:49 | External Medical Summary ---
Author Name Unknown Address Unknown Organization [id number]:[facility] - [address] [facility] [address] Laboratory Report Ordering Provider Test Date Status CINDY HANKS 11/18/2022 14:50:32 Final Observation Date Value Abnormality Reference (Units ) Status TSH 11/18/2022 14:50:32 0.29 0.27-4.20 (uIU/mL) Final Performing Location LABORATORY C - [address] [facility] [address]
--- OUTSIDE RECORDS SUMMARY | 2023-01-17 06:49 | External Medical Summary | Summary of Care ---
Author Name Unknown Organization [facility] Address [address] [facility] [address] Phone [phone] Care Team Providers Care Weight And Balance Control Agent Name Role Phone Chelo Louie DO Primary Care Provider Reason for Visit * Reason Comments Return Visit Encounter Details Date Type Department Care Team Description 11/18/2022 Office Visit Gynecology/Obstetrics [facility]te Richters [address] [place] [address] Erendira Mosqueda CRNP [address] [place] [address] Encounter for supervision of other normal in third trimester*; Antepartum multigravida of advanced maternal age; Hypothyroidism affecting in third trimester; Need for prophylactic vaccination with combined bytstiwliw-lbfobpl-tir tussis (DTP) vaccine Allergies Active Allergy Reactions Severity Noted Date [...] meds). 34 Tablet 5 06/27/2022 Active Nystatin 387601 UNIT/GM External Cream Apply topically to affected [...] be handled at the discretion of the stewardess supervisor. 5. Recommend follow up ultrasound for growth in 4-6 weeks Adult BMI 19-24 kg/sq m 08/11/2014 Estimated Date of Delivery Comme nts Yes 02/03/2023 Based on Ultraso und documented as of this encounter (statuses as of 11/18/2022) Resolved Problems Problem Noted Date Resolved Date Supervision of high-risk , third [facility] 07/05/2019 10/17/2019 Overview: Tdap given in left [...] Heller, JANIE Plan to breastfeed. Took Brittney LaurenZoops class. Hoping for unmedicated labor/. Valdemar's disease [...] be handled at the discretion of the stewardess supervisor. documented as of this encounter (statuses as [...] Sign Reading Time Taken Comments Blood Pressure 118/80 11/18/2022 1:41 PM EDT Pulse - - Temperature - - Respiratory Rate - - Oxygen Saturation - - Inhaled Oxygen Concentration - - Weight 70.9 kg (156 lb 6.4 oz) 11/18/2022 1:41 P M EDT Height 152.4 cm (5') 11/18/2022 1:41 PM EDT Body Mass Index 30.54 11/18/2022 1:41 PM EDT documented in this encounter Progress Notes * SRIRAM Ngo - 11/18/2022 2:10 PM EDT 29w No concerns. Good FM. No contractions, bleeding, or LOF. Glucola, TDAP today. SRIRAM Ngo * Farida Weinberg LPN - 11/18/2022 2:01 PM EDT 29w0d Completing 28wk labs today, desires tdap today. documented in this encounter Nursing Notes * Farida Weinberg LPN - 11/18/2022 2:07 PM EDT Patient here for tdap injection. Patient doing well no complaints. Injection given IM as ordered. Patient tolerated well. Patient to follow up as directed. Patient instructed to call if any complications. Patient verbalized understanding of instructions given. Injection site: Right Deltoid Medication Source: Dispensed stock medication documented in this encounter Plan of Treatment Upcoming Encounters Date Type Specialty Care Team Description 12/05/2022 Office Visit Gynecology Obstetrics Jacquelyn Montero PA-C [address] [place] [address] Health Maintenance Due Date Last Done Comments [...] in third trimester Need for prophylactic vaccination with combined fglafrevio-fakynoo-edbccifye (DTP) vaccine documented in this encounter Care Teams Weight And Balance Control Agent Relationship Specialty Start Date End Date Chelo Louie DO [address] [place] [address] PCP - General Family Medicine 07/02/14 documented as of this encounter
--- OUTSIDE RECORDS SUMMARY | 2023-01-17 06:49 | External Medical Summary ---
Author Name Unknown Address Unknown Organization [id number]:LABORATORY [facility] [place], [place] - [address] [place] [address] Laboratory Report Ordering Provider Test Date Status CINDY HANKS 11/18/2022 14:50:32 Final Observation Date Value Abnormality Reference (Units ) Status TSH 11/18/2022 14:50:32 0.28 0.27-4.20 (uIU/mL) Final Performing Location [facility] [place] [address] [place] [address]
--- OUTSIDE RECORDS SUMMARY | 2023-01-17 06:49 | External Medical Summary | Summary of Care ---
Author Name Unknown Organization [facility] Address [address] [facility] [place] [address] Phone [phone] Care Team Providers Care Product Development Specialist Name Role Phone Chelo Louie DO Primary Care Provider Reason for Visit * Reason Onset Date Comments Headache 10/17/2022 Discuss with construction coordinator provider Encounter Details Date Type Department Care Team Description 10/17/2022 Telephone Gynecology/Obstetrics [facility] [address] [place] [address] Eddie Johnson MD [address] [place] [phone] Headache (Discuss with construction coordinator provider ) Allergies Active Allergy Reactions Severity Noted Date Comments Cefaclor Rash 07/11/2013 documented as of this encounter (statuses as of 10/17/2022) Medications Medication Sig Dispensed Refills Start Date End Date Status Vit-Fe Fumarate-FA ( FORMULA) 27-1 MG Tablet 0 Active Levothyroxine Sodium 100 MCG Oral Tablet (Levoxyl) Take 1 Tablet by mouth in the morning. (at least 30 min prior to breakfast or other meds). 34 Tablet 5 06/27/2022 Active Nystatin 425967 UNIT/GM External Cream Apply topically to affected area 2 times a day. Apply to stomach twice a day as needed for rash 30 g 0 09/27/2022 Active documented as of this encounter (statuses as of 10/17/2022) Active Problems Problem Noted Date Supervision of [...] be handled at the discretion of the licensed acupuncturist. 5. Recommend follow up ultrasound for growth in 4-6 weeks Adult BMI 19-24 kg/sq m 08/11/2014 Estimated Date of Delivery Comme nts Yes 02/03/2023 Based on Ultraso und documented as of this encounter (statuses as of 10/17/2022) Resolved Problems Problem Noted Date Resolved Date [...] ordered Supervision of other normal , antepartu 06/22/2016 02/12/2017 Encounter for supervision of normal [...] be handled at the discretion of the licensed acupuncturist. documented as of this encounter (statuses as of 10/17/2022) Immunizations Name Administration Dates Next Due Seasonal [...] encounter Miscellaneous Notes * Telephone Encounter - Elma Miguel LPN - 10/17/2022 1:47 PM EDT I spoke with Dr. Johnson and he suggests pt reaches out to PCP to see if they can prescribe her Fioricet to see if that will help with the MALCOLM's due to pts bp normal and no other symptoms with pregnancypt needs to see PCP for MALCOLM. Spoke with pt she verbalized understanding * Telephone Encounter - Elma Miguel LPN - 10/17/2022 10:03 AM EDT Pt called in with having a MALCOLM since yesterday morning. Pt has been taking the recommended dose of tylenol, drinking water, has tried caffeine and no relief. Pt denies any vision changes, vb, lof and baby is moving well. Pt did take bp this morning and it was 106/73. I told pt I will need to discusswith construction coordinator doc and we will let her know his recommendations documented in this encounter Plan of Treatment Upcoming Encounters Date Type Specialty Care Team Description 10/18/2022 Office Visit Family Medicine Chelo Louie DO [address] [place] [address] 10/25/2022 Office Visit Gynecology Obstetrics Erendira Mosqueda CRNP [address] [place] [address] Health Maintenance Due Date Last Done Comments Hepatitis B (1 of 3 - 3-dose series) 1985 COVID-19 Vaccine (#1) 04/27/1988 Depression Screening, Annual for Pts 12 and Over 06/22/2018 06/22/2017 Influenza Vaccine (FLU shot) (#1) 2022 12/24/2020, 12/23/2019, 01/03/2017, Additional history exists TSH 09/28/2023 09/27/2022, 07/05, 06/24/2022, Additional history [...] filedocumented as of this encounter Care Teams Product Development Specialist Relationship Specialty Start Date End Date Chelo Louie DO [address] [place] [address] PCP - General Family Medicine 07/02/14 documented as of this encounter
--- OUTSIDE RECORDS SUMMARY | 2023-01-17 06:49 | External Medical Summary | Summary of Care ---
Author Name Unknown Organization [facility] Address [address] [facility] [address] Phone [phone] Care Team Providers Care Computer Systems Software Engineer Name Role Phone Chelo Louie DO Primary Care Provider Reason for Visit * Reason Comments Return Visit Encounter Details Date Type Department Care Team Description 12/22/2022 Office Visit Gynecology/Obstetrics [facility]te Oh [address] [place] [phone] Erendira Mosqueda CRNP [address] [place] [phone] Encounter for supervision of other normal in [...] meds). 34 Tablet 5 06/27/2022 Active Nystatin 101235 UNIT/GM External Cream Apply topically to affected [...] the morning. 100 Tablet 3 12/22/2022 Active documented as of this encounter (statuses [...] be handled at the discretion of the aluminum molder. 5. Recommend follow up ultrasound for growth in 4-6 weeks Adult BMI 19-24 kg/sq m 08/11/2014 Estimated Date of Delivery Comme nts Yes 02/03/2023 Based on Ultraso und documented as of this encounter (statuses as of 12/22/2022) Resolved Problems Problem Noted Date Resolved Date Supervision of high-risk , third [facility] 07/05/2019 10/17/2019 Overview: Tdap given in [...] be handled at the discretion of the aluminum molder. documented as of this encounter (statuses as [...] Time Taken Comments Blood Pressure 130/82 12/22/2022 9:26 AM EDT Pulse - - Temperature - - Respiratory Rate - - Oxygen Saturation - - Inhaled Oxygen Concentration - - Weight 75.3 kg (166 lb) 12/22/2022 9:26 AM EDT Height 152.4 cm (5') 12/22/2022 9:26 AM EDT Body Mass Index 32.42 12/22/2022 9:26 AM EDT documented in this encounter Progress Notes * SRIRAM Ngo - 12/22/2022 9:39 AM EDT 33w6d Concerned about her blood pressure. Checks it at home and is higher than she is getting here. Suggested she bring her cuff to her next visit for calibration. Was treated for ear infection. Has 1 day left of antibiotic but still can't hear well. Planning to contact PCP office. Had u/s today, dilated renal pelvises resolved. Growth good. +cardiac activity on u/s SRIRAM Ngo * Farida Weinberg LPN - 12/22/2022 9:27 AM EDT 33w6d Pt denies any concerns. documented in this encounter Plan of Treatment Upcoming Encounters Date Type Specialty Care Team Description 01/12/2023 Office Visit Gynecology Obstetrics Backer, SRIRAM Rios [address] [place] [address] 01/19/2023 Office Visit Gynecology Obstetrics Erendira Mosqueda CRNP [address] [place] [address] 01/24/2023 Office Visit Gynecology Obstetrics Erendira Mosqueda CRNP [address] [place] [address] 02/01/2023 Office Visit Gynecology Obstetrics Erendira Mosqueda CRNP [address] [place] [address] Health Maintenance Due Date Last Done Comments [...] trimester documented in this encounter Care Teams Computer Systems Software Engineer Relationship Specialty Start Date End Date Chelo Louie DO [address] [place] [address] PCP - General Family Medicine 07/02/14 documented as of this encounter
--- OUTSIDE RECORDS SUMMARY | 2023-01-17 06:49 | External Medical Summary | Summary of Care ---
Author Name Unknown Organization [facility] Address [address] [facility] [address] Phone [phone] Care Team Providers Care Junction Maker Name Role Phone Chelo Louie DO Primary Care Provider Reason for Visit * Reason Comments Return Visit Encounter Details Date Type Department Care Team Description 09/27/2022 Office Visit Gynecology/Obstetrics [place] Oh [address] [place] [phone] Erendira Mosqueda CRNP [address] [place] [phone] Antepartum multigravida of advanced maternal age*; Hypothyroidism affecting in third trimester; Encounter for supervision of other normal in second trimester Allergies Active Allergy Reactions Severity Noted [...] meds). 34 Tablet 5 06/27/2022 Active Nystatin 853532 UNIT/GM External Cream Apply topically to affected [...] handled at the discretion of the director project management. 5. Recommend follow up ultrasound for [...] handled at the discretion of the director project management. documented as of this encounter (statuses [...] Sign Reading Time Taken Comments Blood Pressure 120/70 09/27/2022 10:00 AM EDT Pulse - - Temperature - - Respiratory Rate - - Oxygen Saturation - - Inhaled Oxygen Concentration - - Weight 66 kg (145 lb 6.4 oz) 09/27/2022 10:00 AM EDT Height 152.4 cm (5') 09/27/2022 10:00 AM EDT Body Mass Index 28.4 09/27/2022 10:00 AM EDT documented in this encounter Progress Notes * SRIRAM Ngo - 09/27/2022 10:22 AM EDT 21w4d Has a fungal rash on her stomach. Nystatin sent to pharmacy. No other concerns. +FM. No bleeding or LOF. Anatomy u/s today, +cardiac activity on u/s. Dilated renal pelvises on u/s. Will recheck in 3rd trimester. TSH today. SRIRAM Ngo documented in this encounter Nursing Notes * REYNA Newman - 09/27/2022 10:09 AM EDT 21w4d Pt denies any concerns. documented in this encounter Plan of Treatment Upcoming Encounters Date Type Specialty Care Team Description 09/27/2022 Laboratory Laboratory Domenico Oh [address] [facility] [place] [address] Arrived 10/25/2022 Office Visit Gynecology Obstetrics Erendira Mosqueda CRNP [address] [place] [address] Pending Results Name Type Priority Associated Diagnoses Date /Time TSH WITH FREE T4 IF INDICATED Lab Routine Hypothyroidism affecting in third trimester 09/27/2022 10:29 AM EDT Health Maintenance Due Date Last Done Comments Hepatitis B (1 of 3 - 3-dose series) 1985 COVID-19 Vaccine (#1) 04/27/1988 Depression Screening, Annual for Pts 12 and Over 06/22/2018 06/22/2017 Influenza Vaccine (FLU shot) (#1) 2022 12/24/2020, 12/23/2019, 01/03/2017, Additional history exists TSH 07/26/2023 07/25/2022, 06/05, 06/24/2021, Additional history exists Pap Smear 06/25/2027 06/24/2022, 1204/2018, 07/07/2014, Additional history exists DTaP,Tdap,and Td Vaccines [...] as of this encounter Visit Diagnoses Diagnosis Antepartum multigravida of advanced maternal age- Primary Hypothyroidism affecting in third trimester Encounter for supervision of other normal in second trimester documented in this encounter Care Teams Junction Maker Relationship Specialty Start Date End Date Chelo Louie DO [address] [place], [place] [address] PCP - General Family Medicine 07/02/14 documented as of this encounter
--- OUTSIDE RECORDS SUMMARY | 2023-01-17 06:49 | External Medical Summary ---
Author Name Unknown Address Unknown Organization K01:LABORATORY [facility] - [address] [place] [address] Laboratory Report Ordering Provider Test Date Status MILES HANKSAIL 11/18/2022 14:50:32 Final Observation Date Value Abnormality Reference (Units ) Status WBC, Total 11/18/2022 14:50:32 9.36 4.00-10.8 0 (K/uL) Final RBC 11/18/2022 14:50:32 4.13 3.85-5.15 (M/uL) Final Hemoglobin 11/18/2022 14:50:32 12.0 12.0-15.3 (g/dL) Final Anemia reflex testing trigge rs on a HGB < 12.0 for Females and HGB < 13.0 for Males in accordance with the WHO Anemia Guidelines
Anemia reflex testing triggers on a HGB < 12.0 for Females and HGB < 13.0 for Males in accordance with the WHO Anemia Guidelines HCT 11/18/2022 14:50:32 38.2 36.0-45.2 (%) Final MCV 11/18/2022 14:50:32 92.5 81.5-97.5 (fL) Final MCH 11/18/2022 14:50:32 29.1 27.0-34.0 (pg) Final MCHC 11/18/2022 14:50:32 31.4 32.0-36.0 (g/dL) Final RDW 11/18/2022 14:50:32 13.3 11.5-15.5 (%) Final Platelets 11/18/2022 14:50:32 213 140-400 (K /uL) Final MPV 11/18/2022 14:50:32 11.4 6.6-11.1 ( fL) Final Nucleated erythrocytes/100 leukocytes [Ratio] in Blood by Automated count 11/18/2022 14:50:32 0 <=0 (/100 WBCs) [facility] Performing Location [facility] - [address] [facility] [address]
--- OUTSIDE RECORDS SUMMARY | 2023-01-17 06:50 | External Medical Summary | Summary of Care ---
Author Name Unknown Organization [facility] Address [address] [facility] [address] Phone [phone] Care Team Providers Care Overedger Name Role Phone Chelo Louie DO Primary Care Provider Reason for Visit * Reason Comments Return Visit Encounter Details Date Type Department Care Team Description 07/25/2022 Office Visit Gynecology/Obstetrics [facility]te Oh [address] [place] [address] Mikala Harris CRNP [address] [place] [phone] Encounter for supervision of other normal in first trimester*; Hypothyroidism affecting in third trimester; Antepartum multigravida of advanced maternal age Allergies Active Allergy Reactions Severity Noted Date Comments Cefaclor Rash 07/11/2013 documented as of this encounter (statuses as of 07/25/2022) Medications Medication Sig Dispensed Refills Start Date End Date Status Vit-Fe Fumarate-FA ( FORMULA) 27-1 MG Tablet 0 Active Levothyroxine Sodium 100 MCG Oral Tablet (Levoxyl) Take 1 Tablet by mouth in the morning. (at least 30 min prior to breakfast or other meds). 34 Tablet 5 06/27/2022 Active documented as of this encounter (statuses as of 07/25/2022) Active Problems Problem Noted Date Supervision of normal 07/26/19 23 Antepartum multigravida of advanced mate rnal age 0406/24/2022 Overview: Declines genetics Hypothyroidism affecting in ird trimester 07/05/2019 Overview: History of valdemar's. TSH each trimester. Increased to 100mcg levothyroxine 06/27/2022, recheck at next visit Refer to M if adjust meds after 1st trimester TSH Results: Lab Results Component Value Date/Time TSH - [facility] 4.47 (H) 06/24/2022 12:41 PM TSH - [facility] 2.76 06/24/2021 07:43 AM TSH - [facility] 5.44 (H) 06/22/2020 02:35 PM TSH - [facility] 3.04 08/05/2019 10:15 AM [...] be handled at the discretion of the ceramics instructor. 5. Recommend follow up ultrasound for growth in 4-6 weeks Adult BMI 19-24 kg/sq m 08/11/2014 Estimated Date of Delivery Comme nts Yes 02/03/2023 Based on Ultraso und documented as of this encounter (statuses as of 07/25/2022) Resolved Problems Problem Noted Date Resolved Date [...] at 's work Tdap vaccine administered 02/19/2015 Tailor B Heller, RN Plan to breastfeed. Took Brittney [...] be handled at the discretion of the ceramics instructor. documented as of this encounter (statuses as of 07/25/2022) Immunizations Name Administration Dates Next Due Seasonal [...] Sign Reading Time Taken Comments Blood Pressure 114/68 07/25/2022 8:24 AM EDT Pulse - - Temperature - - Respiratory Rate - - Oxygen Saturation - - Inhaled Oxygen Concentration - - Weight 63.9 kg (140 lb 12.8 oz) 07/25/2022 8:24 AM EDT Height - - Body Mass Index 27.5 06/24/2022 11:59 AM EDT documented in this encounter Progress Notes * SRIRAM Faulkner - 07/25/2022 8:28 AM EDT 12w3d Some N/V. Recommend B6/Unisom. Denies bleeding, pelvic pain. Recheck TSH today, declines genetics. 4 week return. SRIRAM Blanchard documented in this encounter Nursing Notes * Alicia Mederos LPN - 07/25/2022 8:25 AM EDT 12w3d Denies vaginal bleeding/rom Absent movement No new concerns documented in this encounter Plan of Treatment Upcoming Encounters Date Type Specialty Care Team Description 08/29/2022 Office Visit Gynecology Obstetrics Erendira Mosqueda CRNP [address] [place] [address] Pending Results Name Type Priority Associated Diagnoses Date /Time TSH WITH FREE T4 IF INDICATED Lab Routine Hypothyroidism affecting in third trimester 07/25/2022 8:50 AM EDT Scheduled Orders Name Type Priority Associated Diagnoses Orde r Schedule TSH WITH FREE T4 IF INDICATED Lab Routine Hypothyroidism affecting in third trimester Expected: 07/25/2022 (Approximate), Expires: 07/26/2023 Health Maintenance Due Date Last Done Comments Hepatitis B (1 of 3 - 3-dose series) 1985 COVID-19 Vaccine (#1) 04/27/1988 Depression Screening, Annual for Pts 12 and Over 06/22/2018 06/22/2017 Influenza Vaccine (FLU shot) (Season Ended) 2022 12/24/2020, 12/23/2019, 01/03/2017, Additional history exists TSH FOR THYROID MEDICATION MONITORING YEARLY 06/25/2023 06/24/2022, 06/24/2021, 06/22/2020, Additional history exists Pap Smear 06/25/2027 06/24/2022, 04/2018, 07/07/2014, Additional history exists DTaP,Tdap,and Td Vaccines (4 - Td or Tdap) 08/19/2029 08/20/2019, 12/26/2016, 02/19/2015 Hepatitis C Screening Completed 06/24/2022 GARDASIL-HPV IMMUNIZATION SERIES Aged Out No [...] Encounter for supervision of other normal in first trimester- Primary Hypothyroidism affecting in third trimester Antepartum multigravida of advanced maternal age documented in this encounter Care Teams Overedger Relationship Specialty Start Date End Date Chelo Louie DO [address] [place] [address] PCP - General Family Medicine 07/02/14 documented as of this encounter
--- OUTSIDE RECORDS SUMMARY | 2023-01-17 06:50 | External Medical Summary ---
Author Name Unknown Address Unknown Organization K01:[facility]ORY [facility] [place] [address] [facility] [address] Laboratory Report Ordering Provider Test Date Status VALERIA FUENTES 07/25/2022 08:50:32 Final Observation Date Value Abnormality Reference (Units ) Status TSH 07/25/2022 08:50:32 1.35 0.27-4.20 (uIU/mL) Final Performing Location [facility] [place] [address] [facility] [address]
--- OUTSIDE RECORDS SUMMARY | 2023-01-17 06:50 | External Medical Summary | Summary of Care ---
Author Name Unknown Organization [facility] Address [address] [facility] [address] Phone [phone] Care Team Providers Care Management Lead Name Role Phone Chelo Louie DO Primary Care Provider Reason for Visit * Reason Comments Outpatient Testing Encounter Details Date Type Department Care Team Description 07/25/2022 Laboratory [facility] [address] [facility] [address] [place] [address] Hypothyroidism affecting in third trimester Allergies Active [...] 06/27/2022, recheck at next visit Refer to [facility] if adjust meds after 1st trimester TSH [...] be handled at the discretion of the spring tacker. 5. Recommend follow up ultrasound for growth in 4-6 weeks Adult BMI 19-24 kg/sq m 08/11/2014 Estimated Date of Delivery Comme nts Yes 02/03/2023 Based on Ultraso und documented as of this encounter (statuses as of 07/25/2022) Resolved Problems Problem Noted Date Resolved Date Supervision of high-risk , third trimsandeep ter 07/05/2019 10/17/2019 Overview: Tdap given in [...] order TSH in 3 weeks. - Jud [place] Thorpe 03/04 TSH=1.83 06/23/18 - pt 27w6d at [...] be handled at the discretion of the spring tacker. documented as of this encounter (statuses as [...] Mosqueda CRNP [address] [place] [address] Pending Results Name Type Priority Associated Diagnoses Date /Time TSH WITH FREE T4 IF INDICATED Lab Routine Hypothyroidism affecting in third trimester 07/25/2022 8:50 AM EDT Health Maintenance Due Date Last [...] as of this encounter Visit Diagnoses Diagnosis Hypothyroidism affecting in third trimester documented in this encounter Care Teams Management Lead Relationship Specialty Start Date End Date Chelo Louie DO [address] [place] [address] PCP - General Family Medicine 07/02/14 documented as of this encounter
--- OUTSIDE RECORDS SUMMARY | 2023-01-17 06:50 | External Medical Summary ---
Author Name Unknown Address Unknown Organization K01:LABORATORY [facility] [place] - [address] [facility] [address] Laboratory Report Ordering Provider Test Date Status CINDY HANKS 09/27/2022 10:29:50 Final Observation Date Value Abnormality Reference (Units ) Status TSH 09/27/2022 10:29:50 2.33 0.27-4.20 (uIU/mL) Final Performing Location LABORATORY [facility] [place] - [address] [facility] [address]
--- OUTSIDE RECORDS SUMMARY | 2023-01-17 06:50 | External Medical Summary | Summary of Care ---
Author Name Unknown Organization [facility] Address [address] [facility] [place] [address] Phone [phone] Care Team Providers Care Avionics Electrical Engineer Name Role Phone Chelo Louie DO Primary Care Provider Reason for Visit * Reason Comments Return Visit Encounter Details Date Type Department Care Team Description 08/29/2022 Office Visit Gynecology/Obstetrics [facility] [address] [place] [id number] Erendira Mosqueda CRNP [address] [place] [id number] Encounter for supervision of other normal in second trimester*; Antepartum multigravida of advanced maternal age; Hypothyroidism affecting in third trimester Allergies Active Allergy Reactions Severity Noted Date Comments Cefaclor Rash 07/11/2013 documented as of this encounter (statuses as of 08/29/2022) Medications Medication Sig Dispensed Refills Start Date End Date Status Vit-Fe Fumarate-FA ( FORMULA) 27-1 MG Tablet 0 Active Levothyroxine Sodium 100 MCG Oral Tablet (Levoxyl) Take 1 Tablet by mouth in the morning. (at least 30 min prior to breakfast or other meds). 34 Tablet 5 06/27/2022 Active documented as of this encounter (statuses as of 08/29/2022) Active Problems Problem Noted Date Supervision of [...] be handled at the discretion of the surgical services director. 5. Recommend follow up ultrasound for growth in 4-6 weeks Adult BMI 19-24 kg/sq m 08/11/2014 Estimated Date of Delivery Comme nts Yes 02/03/2023 Based on Ultraso und documented as of this encounter (statuses as of 08/29/2022) Resolved Problems Problem Noted Date Resolved Date [...] be handled at the discretion of the surgical services director. documented as of this encounter (statuses as of 08/29/2022) Immunizations Name Administration Dates Next Due Seasonal [...] Sign Reading Time Taken Comments Blood Pressure 100/68 08/29/2022 8:17 AM EDT Pulse - - Temperature - - Respiratory Rate - - Oxygen Saturation - - Inhaled Oxygen Concentration - - Weight 65.5 kg (144 lb 6.4 oz) 08/29/2022 8:17 A M EDT Height 152.4 cm (5') 08/29/2022 8:17 AM EDT Body Mass Index 28.2 08/29/2022 8:17 AM EDT documented in this encounter Progress Notes * SRIRAM Ngo - 08/29/2022 8:31 AM EDT 17w3d Complaints: none. Some nausea, but overall much better. Hasn't felt FM. No contractions, bleeding, or LOF. Anatomy u/s with next visit. SRIRAM Ngo documented in this encounter Nursing Notes * REYNA Newman - 08/29/2022 8:21 AM EDT 17w3d Pt denies any concerns. documented in this encounter Plan of Treatment Upcoming Encounters Date Type Specialty Care Team Description 09/27/2022 Imaging Radiology 09/27/2022 Office Visit Gynecology Obstetrics Erendira Mosqueda CRNP [address] [place] [id number] Scheduled Orders Name Type Priority Associated Diagnoses Orde r Schedule US PREG SINGLE/1ST GEST, 14 WEEKS OR LATER Medical Imaging Routine Encounter for supervision of other normal in second trimester Expected: 09/28/2022 (Approximate), Expires: 09/29/2023 Health Maintenance Due Date Last Done Comments Hepatitis B (1 of 3 - 3-dose series) 1985 COVID-19 Vaccine (#1) 04/27/1988 Depression Screening, Annual for Pts 12 and Over 06/22/2018 06/22/2017 Influenza Vaccine (FLU shot) (Season Ended) 2022 12/24/2020, 12/23/2019, 01/03/2017, Additional history exists TSH 07/26/2023 07/25/2022, 06/05, 06/24/2021, Additional history exists Pap Smear 06/25/2027 06/24/2022, 12/04/2018, 07/07/2014, Additional history exists DTaP,Tdap,and Td Vaccines [...] for supervision of other normal in second trimester- Primary Antepartum multigravida of advanced maternal age Hypothyroidism affecting in third trimester documented in this encounter Care Teams Avionics Electrical Engineer Relationship Specialty Start Date End Date Chelo Louie DO [address] [place] [address] PCP - General Family Medicine 07/02/14 documented as of this encounter
--- OUTSIDE RECORDS SUMMARY | 2023-01-17 06:50 | External Medical Summary | Summary of Care ---
Author Name Unknown Organization [facility] Address [address] [place] [address] Phone [phone] Care Team Providers Care Set Off Blocker Name Role Phone Chelo Louie DO Primary Care Provider Reason for Visit * Reason Comments Return Visit Encounter Details Date Type Department Care Team Description 08/29/2022 Office Visit Gynecology/Obstetrics [facility] [address] [place] [address] Erendira Mosqueda CRNP [address] [place] [phone] Encounter for supervision of other normal in [...] be handled at the discretion of the trend investigator. 5. Recommend follow up ultrasound for growth [...] be handled at the discretion of the trend investigator. documented as of this encounter (statuses as [...] Mosqueda CRNP [address] [place] [id number] Scheduled Orders Name Type Priority Associated Diagnoses [...] trimester documented in this encounter Care Teams Set Off Blocker Relationship Specialty Start Date End Date Chelo Louie DO [address] [place] [address] PCP - General Family Medicine 07/02/14 documented as of this encounter
[2023-01-17 07:05] LABS: Albumin Globulin Ratio 1.1 (0.9-2); Albumin Level 3.2 gm/dl (3.4-5.0); BUN Creatinine Ratio 21.7 (10-20); Bilirubin,Total 0.3 mg/dl (0.2-1.0); Calcium 8.5 mg/dl (8.6-10.3); Est GFR (African American) 136.9 ml/min; Est GFR (Non-African American) 118.1 ml/min; Globulin 2.8 gm/dl (2.5-4.0); Potassium 4.3 mmol/L (3.5-5.1)
[2023-01-17] MEDS: LEVOTHYROXINE SODIUM 100 MCG TABLET PO SCH (07:19)
[2023-01-17] MEDS: LABETALOL HCL 300 MG TAB PO SCH (08:13)
[2023-01-17] MEDS: DOCUSATE SODIUM 100 MG CAP PO SCH (08:14)
[2023-01-17] MEDS: FERROUS SULFATE 325 MG TAB PO SCH (08:14)
[2023-01-17] MEDS: PRENATAL VITAMIN 1 TAB PO SCH (08:14)
[2023-01-17] MEDS: IBUPROFEN 600 MG TAB PO PRN (08:24)
[2023-01-17] MEDS ORDERED: NIFEdipine EXTENDED REL 30 MG TABCR PO SCH (09:00)
== END 2023-01-17 12:28 | disposition home or self-care (01) | DRG 807 ==
LOC: 4S1 09:38 → 4E2 01-14 20:43